=== PATIENT | female | born 1950 | race Caucasian/White ===

== ENCOUNTER 2017-12-14 17:39 | Inpatient (IN) ==
--- OUTSIDE RECORDS SUMMARY | 2017-12-14 20:55 | External Medical Summary | Clinical Summary ---
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 Screening-Mammogram 02/11/2000 Colon Cancer Screening 02/11/2000 Zoster Recombinant Vaccine 02/11/2000 (RZV,Shingrix) (1 of 2 - SVH 2 Dose Standard) Pneumo-Adult (1 of 2 - PCV13) 2015 09/20/2011 Annual Wellness Visit 12/12/2015 Influenza Vaccine (Season Ended) 2018 Diabetic Foot Exam 06/29/2018 06/29/2017, 03/05/2015, 01/16/2013 Results T3, Total (11/23/2017 4:23 PM) Component Value Ref Range T3, Total 103 60 - 181 ng/dL Specimen Performing Laboratory Blood [facility] [address] [place] [address] TSH (11/23/2017 4:23 PM) Component Value Ref Range TSH 0.800 0.340 - 4.820 uIU/mL Specimen Performing Laboratory Blood [facility] [address] [place] [address] T4, Free (11/23/2017 4:23 PM) Component Value Ref Range Free T4 0.89 0.77 - 1.61 ng/dL Specimen Performing Laboratory Blood [facility] [address] [place] [address] EKG 12 lead Ambulatory (11/23/2017 4:12 PM) Component Value Ref Range Height in Heart Rate 57 bpm Interval 1,053 ms Atrial Rate 57 ms SV P-R Interval 179 ms P Duration 113 ms P Horizontal [place] -15 deg P Front [place] 34 deg Q Onset 504 ms QRSD Interval 92 ms QT Interval 450 ms QTcB 439 ms QTcF 442 ms QRS Horizontal [place] -28 deg QRS AXIS 58 deg I40 Horizontal [place] -17 deg I40 Front [place] 16 deg T-40 Horizontal [place] -31 deg T-40 Front [place] 62 deg T Horizontal [place] 30 deg T Wave [place] 90 deg S-T HORIZONTAL AXIS 111 deg S-T FRONT AXIS 151 deg ECG Impression - OTHERWISE NORMAL ECG - ECG Impression SB ECG Impression Sinus bradycardia ECG Impression rate<60 Specimen Performing Laboratory PHILIPSECG Hemoglobin A1c (10/10/2017 3:13 PM) Component Value Ref Range Hemoglobin A1C 7.6 (H) <5.7 % Specimen Performing Laboratory Blood [facility] [address] [place] [address] Narrative [place] [employer] recommendations are as follows: Normal - A1c less than 5.7% Prediabetes - A1c 5.7 - 6.4% Diabetes - A1c 6.5% or greater Comprehensive metabolic panel (10/10/2017 3:13 PM) Component Value Ref Range Albumin 3.7 3.4 - 4.8 g/dL Alkaline Phosphatase 81 29 - 122 U/L ALT 41 10 - 46 U/L AST 32 16 - 37 U/L Total Bilirubin 0.5 0.0 - 1.2 mg/dL BUN, Bld 25 (H) 6 - 20 mg/dL Calcium 9.4 8.7 - 10.5 mg/dL Chloride 105 99 - 111 mmol/L Creatinine 1.58 (H) 0.40 - 1.10 mg/dL Glucose 240 (H) 74 - 106 mg/dL Potassium 4.1 3.6 - 4.9 mmol/L Total Protein 6.2 (L) 6.4 - 8.3 g/dL Sodium 141 136 - 145 mmol/L CO2 29 20 - 36 mmol/L Anion Gap 7 eGFR 33 (L) >59 mL/min Specimen Performing Laboratory Blood [facility] [address] [place] [address] from Last 3 Months
--- OUTSIDE RECORDS SUMMARY | 2017-12-14 20:55 | External Medical Summary | Encounter Summary ---
:1950 Author Organization [facility] Address [address] [place] [address] Care Team Providers Name Role Phone Mikel Augustine AUTOMOBILE RADIATOR MECHANIC Unavailable Kayode Espinosa MD Primary Care Provider Encounter Details Date Type Department Care Team Description 12/04/2017 [facility] MULTIPLE TESTS [place] Social History Tobacco Use Types Packs/Day Years Used Date Former Smoker Smokeless Tobacco: Never Used Comments: Quit smoking: Year stopped 1969/Number of yrs: /Packs per day: /Pack years: Sex Assigned at Date Recorded Not on file as of this encounter Plan of Treatment Upcoming Encounters Date Type Specialty Care Team Description 01/16/2018 Follow-Up Endocrinology Mikel Augustine, AUTOMOBILE RADIATOR MECHANIC [address] [place] [phone] 01/18/2018 Office Visit Family Medicine Kayode Espinosa MD [address] [place] [address] [phone] as of this encounter Visit Diagnoses Not on filein this encounter
--- OUTSIDE RECORDS SUMMARY | 2017-12-14 20:55 | External Medical Summary | Encounter Summary ---
:[address] [facility] Address [address] [place] [address] Care Team Providers Name Role Phone Mikel Augustine THRESHING DEPARTMENT SUPERVISOR Unavailable Kayode Espinosa MD Primary Care Provider Encounter Details Date Type Department Care Team Description 11/27/2017 [place] [facility] Visit [place]rales Syncope and collapse (Primary Dx); Emergency Services MD [place] Vomiting without nausea, intractability of vomiting not specified, unspecified [facility] type[facility] [address] Urinary tract infection without hematuria, site unspecified; [address] Nausea and vomiting, intractability of vomiting not specified, unspecified vomiting type; [address] [place], [place] [phone] Social History Tobacco Use Types Packs/Day Years Used Date Former Smoker Smokeless Tobacco: Never Used Comments: Quit smoking: Year stopped 1969/Number of yrs: /Packs per day: /Pack years: Sex Assigned at Date Recorded Not on file as of this encounter Plan of Treatment Upcoming Encounters Date Type Specialty Care Team Description 01/16/2018 Follow-Up Endocrinology Mikel Augustine, THRESHING DEPARTMENT SUPERVISOR [address] [place] [phone] 01/18/2018 Office Visit Family Medicine Kayode Espinosa MD [address] [place] [address] [phone] as of this encounter Visit Diagnoses Diagnosis Syncope and collapse - Primary Vomiting without nausea, intractability of vomiting not specified, unspecified vomiting type Urinary tract infection without hematuria, site unspecified Nausea and vomiting, intractability of vomiting not specified, unspecified vomiting type Abnormal EKG Nonspecific abnormal electrocardiogram (ECG) (EKG)
--- OUTSIDE RECORDS SUMMARY | 2017-12-14 20:55 | External Medical Summary | Encounter Summary ---
:1950 Author Organization [facility] Address [address] [place] [address] Care Team Providers Name Role Phone Mikel Augustine HEAT READER Unavailable Kayode Espinosa MD Primary Care Provider Reason for Visit Reason Comments Question Encounter Details Date Type Department Care Team Description 12/07/2017 Telephone [facility] Family Kayode Espinosa MD [facility] [address] [place] [address] [place] [address] [place], [place] [phone] Social History Tobacco Use Types Packs/Day Years Used Date Former Smoker Smokeless Tobacco: Never Used Comments: Quit smoking: Year stopped 1969/Number of yrs: /Packs per day: /Pack years: Sex Assigned at Date Recorded Not on file as of this encounter Plan of Treatment Upcoming Encounters Date Type Specialty Care Team Description 01/16/2018 Follow-Up Endocrinology Mikel Augustine, HEAT READER [address] [place] [phone] 01/18/2018 Office Visit Family Medicine Kayode Espinosa MD [address] [place] [address] [place] [phone] as of this encounter Visit Diagnoses Not on filein this encounter
--- OUTSIDE RECORDS SUMMARY | 2017-12-14 20:55 | External Medical Summary | Encounter Summary ---
:1950 Author Organization [facility] Address [address] [address] Care Team Providers Name Role Phone Mikel Augustine APPAREL PATTERNMAKER Unavailable Kayode Espinosa MD Primary Care Provider Encounter Details Date Type Department Care Team Description 12/06/2017 Chart Note [place] [facility] [address] [facility] [address] [place], [place] [address] Social History Tobacco Use Types Packs/Day Years Used Date Former Smoker Smokeless Tobacco: Never Used Comments: Quit smoking: Year stopped 1969/Number of yrs: /Packs per day: /Pack years: Sex Assigned at Date Recorded Not on file as of this encounter Plan of Treatment Upcoming Encounters Date Type Specialty Care Team Description 01/16/2018 Follow-Up Endocrinology Mikel Augustine, APPAREL PATTERNMAKER [address] [place] [phone] 01/18/2018 Office Visit Family Medicine Kayode Espinosa MD [id number] [place], [place] [phone] as of this encounter Visit Diagnoses Not on filein this encounter
--- OUTSIDE RECORDS SUMMARY | 2017-12-14 20:55 | External Medical Summary | Encounter Summary ---
:1950 Author Organization [facility] Address [address] [place] [address] Care Team Providers Name Role Phone Mikel Augustine JEEPER OPERATOR Unavailable Kayode Espinosa MD Primary Care Provider Reason for Visit Reason Comments Question Encounter Details Date Type Department Care Team Description 12/06/2017 Telephone [facility] Family Kayode Espinosa MD [facility] [address] [place] [address] [place] [address] [place], [place] [phone] Social History Tobacco Use Types Packs/Day Years Used Date Former Smoker Smokeless Tobacco: Never Used Comments: Quit smoking: Year stopped 1969/Number of yrs: /Packs per day: /Pack years: Sex Assigned at Date Recorded Not on file as of this encounter Plan of Treatment Upcoming Encounters Date Type Specialty Care Team Description 01/16/2018 Follow-Up Endocrinology Mikel Augustien, JEEPER OPERATOR [address] [place] [phone] 01/18/2018 Office Visit Family Medicine Kayode Espinosa MD [address] [place] [phone] as of this encounter Visit Diagnoses Not on filein this encounter
--- OUTSIDE RECORDS SUMMARY | 2017-12-14 20:55 | External Medical Summary | Encounter Summary ---
:1950 Author Organization [facility] Address [address] [place] [address] Care Team Providers Name Role Phone Mikel Augustine SLIP SEAT COVERER Unavailable Kayode Espinosa MD Primary Care Provider Reason for Visit Reason Comments Calling With Results Encounter Details Date Type Department Care Team Description 11/29/2017 Telephone [facility] Kayode Espinosa MD Calling With Results [facility] [address] [place] [address] [place] [address] [place], [place] [phone] Social History Tobacco Use Types Packs/Day Years Used Date Former Smoker Smokeless Tobacco: Never Used Comments: Quit smoking: Year stopped 1969/Number of yrs: /Packs per day: /Pack years: Sex Assigned at Date Recorded Not on file as of this encounter Plan of Treatment Upcoming Encounters Date Type Specialty Care Team Description 01/16/2018 Follow-Up Endocrinology Mikel Augustine, SLIP SEAT COVERER [address] [place] [phone] 01/18/2018 Office Visit Family Medicine Kayode Espinosa MD [address] [place] [address] [phone] as of this encounter Visit Diagnoses Not on filein this encounter
--- OUTSIDE RECORDS SUMMARY | 2017-12-14 20:55 | External Medical Summary | Encounter Summary ---
:1950 Author Organization [facility] Address [address] [address] Care Team Providers Name Role Phone Mikel Augustine KEVON Unavailable Kayode Espinosa MD Primary Care Provider Encounter Details Date Type Department Care Team Description 11/23/2017 Office Visit [place] [facility] Kayode Espinosa, Medication management (Primary Dx); Medicine - Margarita GRAY Hypothyroidism, unspecified type; [address] Anxiety; [address] [place] [address] [place], [place] [phone] [address] [phone] Social History Tobacco Use Types Packs/Day Years Used Date Former Smoker Smokeless Tobacco: Never Used Comments: Quit smoking: Year stopped 1969/Number of yrs: /Packs per day: /Pack years: Sex Assigned at Date Recorded Not on file as of this encounter Last Filed Vital Signs Vital Sign Reading Time Taken Blood Pressure 110/70 11/23/2017 3:21 PM CDT Pulse 66 11/23/2017 3:21 PM CDT Temperature - - Respiratory Rate 16 11/23/2017 3:21 PM CDT Oxygen Saturation - - Inhaled Oxygen Concentration - - Weight 45.4 kg (100 lb) 11/23/2017 3:21 PM CDT Height 152.4 cm (5') 11/23/2017 3:21 PM CDT Body Mass Index 19.53 11/23/2017 3:21 PM CDT in this encounter Progress Notes Kayode Espinosa MD - 11/23/2017 3:30 PM CDTFormatting of this note may be different from the original. FLACA ARRIAGA [address] [address] 11/23/2017 Patient: Aleisha Oliver : 1950 Primary Care Provider: Kayode Espinosa MD Aleisha Oliver is a 67 y.o. female with a history of adrenal insufficiency, anxiety, circadian rhythm disorder, hypothyroidism, hyperparathyroidism, orthostatic hypotension, chronic kidney disease, stroke, type 1 diabetes, depression, personality disorder who presents to discuss medications. She lives in a long term and is here alone. She states she is "terrible" she is generally not feeling well. Things in the long term are "terrible" although she acknowledges of the people are "nice". Her mood is "terrible, horrible, I'm really sick". She denies suicidal or homicidal ideation and denies ideation or self-harm. She states generally "I'm getting worse" and she is worried about orthostatic hypotension making her generalized condition worse. When we discussed medications, she is on [place] Thyroid. We attempted to discontinue this and startlevothyroxine 100 g daily patient refused to make this switch. She is been on [place] Thyroid for 10 years per her report. TSH has been low when checked previously we discussed [place] Thyroid is nota generally approved medication for hypothyroidism. It is unclear if patient does has true hypothyroidism. She has been on lorazepam and states "I don't know" if this medication is helping but thinks it might be. She is okay to discontinue this medication and agreeable to starting quetiapine to help with both sleep and for some mood stabilization. She continues to discuss her prior partner's and suicide that occurred months ago. She continues to think that the sertraline he was prescribed prior to before his suicide was the cause of his suicide. Patient's blood sugars are greater than 200 and she states she is planning on changing her settings. I encouraged her not to change her settings prior to talking with endocrinology who manages her insulin pump and type 1 diabetes. Patient seen a therapist twice per week for psychotherapy is is also in a grief group presently through her nursing facility. Patient is upset because she believes that I placed an order for restriction of water. This was relaxed or discontinued per her report and she wants to know who placed this order and why. I do not have recollection of placing this order but she wanted us to contact the nursing facility for further investigation. She is getting enough water now. Of note, nursing did contact her nursing facility who stated that she has no orders for water restriction. Patient Active Problem List Diagnosis GERD (gastroesophageal reflux disease) Type I diabetes mellitus (HCC) Gastroparesis Healthcare maintenance Stage 3 chronic kidney disease Orthostatic hypotension Adrenal insufficiency (HCC) Hyperparathyroidism (HCC) Osteopenia History of stroke Hyperlipidemia Anemia Vitamin B 12 deficiency Stroke (HCC) Seborrheic dermatitis Not currently working due to disabled status Constipation Circadian rhythm disorder Encounter for monitoring statin therapy Resides in retirement facility UTI (urinary tract infection) Anxiety Poor appetite Suicidal ideation Hypothyroidism Encounter for neuropsychological testing Medications Outpatient Prescriptions Marked as Taking for the 11/23/17 encounter (Office Visit) with Kayode Espinosa MD Medication Sig Note GUANAKO CONTOUR NEXT test strip Use to check capillary blood glucose subcutaneously 8 times daily. This brand works with insulin pump clopidogrel (PLAVIX) 75 MG tablet Take 1 tablet by mouth daily. 03/21/2017: Received from: External Pharmacy fludrocortisone (FLORINEF) 0.1 MG tablet Take 0.1 mg by mouth daily. glucagon (GLUCAGON EMERGENCY) 1 MG injection Inject 1 mg into the muscle as needed (severe hypoglycemia). Insulin Infusion Pump (MINIMED INSULIN PUMP) JACKY use as directed (Patient taking differently: See Admin Instructions. Paradigm 530G Enlite) ketoconazole (NIZORAL) 2 % shampoo Apply 2 % topically 3 (three) times a week. LORazepam (ATIVAN) 0.5 MG tablet Take 1 tablet (0.5 mg total) by mouth 2 ( two) times daily. Do not exceed a daily dose of 1 mg methylphenidate (RITALIN) 20 MG tablet Take 20 mg by mouth 3 (three) times daily. 07/17/2017: Received from: External Pharmacy multivitamin (THERAPEUTIC) TABS tablet Take 1 tablet by mouth daily. Reported on 07/20/2016 nortriptyline (PAMELOR) 10 MG capsule Take 2 capsules (20 mg total) by mouth at bedtime. NOVOLOG 100 UNIT/ML injection INJECT PER INSULIN PUMP; WITH A TOTAL DAILY DOSE OF APPROXIMATELY 33 UNITS ondansetron (ZOFRAN) 4 MG tablet TAKE ONE TABLET BY MOUTH EVERY 8 HOURS NEEDED FOR NAUSEA ondansetron (ZOFRAN-ODT) 4 MG disintegrating tablet Take 4 mg by mouth as needed. 08/21/2017: Received from: External Pharmacy polyethylene glycol (MIRALAX) packet Take 17 g by mouth 3 (three) times daily as needed for Constipation. Probiotic Product (PROBIOTIC DAILY PO) Take 1 tablet by mouth daily. pyridostigmine (MESTINON) 60 MG tablet Take 0.5 tablets (30 mg total) by mouth 3 (three) times daily. simvastatin (ZOCOR) 20 MG tablet take 1 tablet (20MG) by oral route every day in the evening thyroid (ARMOUR) 30 MG tablet Take 60 mg by mouth daily. Take one tab daily Physical Exam Visit Vitals BP 110/70 (BP Location: Right arm, Patient Position: Sitting, Cuff Size: Regular Adult) Pulse 66 Resp 16 Ht 5' (1.524 m) Wt 100 lb (45.4 kg) ? No BMI 19.53 kg/m Constitutional: alert, oriented, In a wheelchair, slumped over, appears frail, white appearing female, seems appreciative and somewhat disgruntled CV: Heart regular rate and rhythm, no murmur Resp: Lungs clear to auscultation bilaterally, no wheezes or crackles bilaterally Assessment/Plan Aleisha Oliver is a 67 y.o. female with a history of adrenal insufficiency, anxiety, circadian rhythm disorder, hypothyroidism, hyperparathyroidism, orthostatic hypotension, chronic kidney disease, stroke, type 1 diabetes, depression, personality disorder who presents to discuss medications. 1. Medication management: We will discontinue lorazepam as this is not indicated for long-term treatment for her mood especially without diagnosis of anxiety per neuropsychological testing by Dr. Mayo 11/07/17. We will prescribe quetiapine 25 mg at night but did discuss possibility of QT prolongation. CT level of EKG today was 450. Consider repeating EKG in the future especially if increases dosage of quetiapine is required - EKG 12 lead Ambulatory 2. Hypothyroidism, unspecified type Assessment & Plan: -presumed as she is on [place] Thyroid. Discontinued 60 mg of this and started levothyroxine 100 mcg daily (equivalent dosing) and check TSH and free T4 in 8 weeks and again in 6 months [facility]. () -patient refuses levothyroxine 100 mcg daily. (11/12/17) It is unclear patient has actual hypothyroidism. She's been on [place] Thyroid for 10 years per her report. We will discontinue this, check TSH, free T4, total T3 today and follow-up in 8 weeks [facility] labs to determine patient actually requires thyroid hormone. Of note, she today refuses levothyroxine if needed in the future. (11/23/17) Orders: - TSH; Future - T4, Free; Future - T3, Total; Future 3. Anxiety Assessment & Plan: Patient's recently committed suicide, [...] related given her relatively recent suicide. (11/23/17) 4. Circadian rhythm disorder Assessment & Plan: Per patient report and prior records, has seen psychotherapist in the past, consider restarting psychotherapy and slowly changing sleep-wake cycle back to a more typical regimen of possible (07/17/17) Discontinued lorazepam and surgery quetiapine 4 circadian rhythm disorder as well as mood stabilization. Increase the dose as tolerated and needed in the future (11/23/17) Other orders - QUEtiapine (SEROQUEL) 25 MG tablet; Take 1 tablet (25 mg total) by mouth at bedtime. 5. Personality disorder with borderline histrionic traits: I have discussed neuropsychological testing and this condition with Dr. Mayo of neuropsychology previously. Dr. Mayo has requested that this diagnosis and information not be shared with the patient as it would cause more harm than good. She is undergoing psychotherapy twice per week as well as additional grief therapy group which is likely helpful and I encouraged her to continue these therapies. She would best benefit from dialectical behavioral therapy. Note that patient's concern regarding water restriction order which was notactually placed in addition to her general outlook of her health condition and surroundings is colored to the lense of the above personality disorder. 6. Type 1 diabetes: Patient is on insulin pump. She states her blood sugars are elevated greater than 200 and she tells me she would like to change her settings. I encouraged her not to change her settings of her pump before talking with endocrinology whom she sees for this condition. We did discuss the risk of hyper or hypoglycemia. Follow-up and Disposition Return in about 2 months (around 01/23/2018) for follow up 30 minute. Kayode Espinosa MD Electronically Signed 11/23/2017 4:20 PM Division of [email or web address] Page 5 of 5in this encounter Plan of Treatment Upcoming Encounters Date Type Specialty Care Team Description 01/16/2018 Follow-Up Endocrinology Mikel Augustine, BRAZING MACHINE TENDER [address] [phone] 01/18/2018 Office Visit Family Medicine Kayode Espinosa MD [address] [facility] [address] [place], [place] [address] as of this encounter Results T3, Total (11/23/2017 4:23 PM) Component Value Ref Range T3, Total 103 60 - 181 ng/dL Specimen Performing Laboratory Blood [facility] [address] [place] [address] T4, Free (11/23/2017 4:23 PM) Component Value Ref Range Free T4 0.89 0.77 - 1.61 ng/dL Specimen Performing Laboratory Blood [facility] [address] [facility], [address] [place] [address] TSH (11/23/2017 4:23 PM) Component Value Ref Range TSH 0.800 0.340 - 4.820 uIU/mL Specimen Performing Laboratory Blood [facility] [address] [facility], [address] [place] [address] EKG 12 lead Ambulatory (11/23/2017 4:12 PM) Component Value Ref Range Height in Heart Rate 57 bpm Interval 1,053 ms Atrial Rate 57 ms SV P-R Interval 179 ms P Duration 113 ms P Horizontal [place] -15 deg P Front [place] 34 deg Q Onset 504 ms QRSD Interval 92 ms QT Interval 450 ms QTcB 439 ms QTcF 442 ms QRS Horizontal [place] -28 deg QRS AXIS 58 deg I40 Horizontal [place] -17 deg I40 Front [place] 16 deg T-40 Horizontal [place] -31 deg T-40 Front [place] 62 deg T Horizontal [place] 30 deg T Wave [place] 90 deg S-T HORIZONTAL AXIS 111 deg S-T FRONT AXIS 151 deg ECG Impression - OTHERWISE NORMAL ECG - ECG Impression SB ECG Impression Sinus bradycardia ECG Impression rate<60 Specimen Performing Laboratory PHILIPSECG in this encounter Visit Diagnoses Diagnosis Medication management - Primary Encounter for long-term (current) use of other medications Hypothyroidism, unspecified type Anxiety Anxiety state, unspecified Circadian rhythm disorder Circadian rhythm sleep disorder, unspecified
--- OUTSIDE RECORDS SUMMARY | 2017-12-14 20:55 | External Medical Summary | Encounter Summary ---
:1950 Author Organization [facility] Address [address] [address] Care Team Providers Name Role Phone Mikel Augustine BEDSPRING ASSEMBLER Unavailable Kayode Espinosa MD Primary Care Provider Encounter Details Date Type Department Care Team Description 11/23/2017 Lab Visit [facility] - Hypothyroidism, unspecified [place] type [address] [place] [address] Social History Tobacco Use Types Packs/Day Years Used Date Former Smoker Smokeless Tobacco: Never Used Comments: Quit smoking: Year stopped 1969/Number of yrs: /Packs per day: /Pack years: Sex Assigned at Date Recorded Not on file as of this encounter Plan of Treatment Upcoming Encounters Date Type Specialty Care Team Description 01/16/2018 Follow-Up Endocrinology Mikel Augustine, BEDSPRING ASSEMBLER [address] [place] [address] 01/18/2018 Office Visit Family Medicine Kayode Espinosa MD [address] [facility] [address] [place] [address] as of this encounter Results T3, Total (11/23/2017 4:23 PM) Component Value Ref Range T3, Total 103 60 - 181 ng/dL Specimen Performing Laboratory Blood [facility] [address] [place] [address] T4, Free (11/23/2017 4:23 PM) Component Value Ref Range Free T4 0.89 0.77 - 1.61 ng/dL Specimen Performing Laboratory Blood [facility] [address] [facility] [address] [place] [address] TSH (11/23/2017 4:23 PM) Component Value Ref Range TSH 0.800 0.340 - 4.820 uIU/mL Specimen Performing Laboratory Blood [facility] [address] [facility], [address] [place] [address] in this encounter Visit Diagnoses Diagnosis Hypothyroidism, unspecified type
--- OUTSIDE RECORDS SUMMARY | 2017-12-14 20:56 | External Medical Summary | Encounter Summary ---
:1950 Author Organization [facility] Address [address] [place] [address] Care Team Providers Name Role Phone Mikel Augustine RECORDS OFFICER Unavailable Kayode Espinosa MD Primary Care Provider Reason for Visit Reason Comments Other Encounter Details Date Type Department Care Team Description 11/15/2017 Telephone [facility] Kayode Espinosa MD Other Medicine - [place] [address] [employer] [address] [place] [address] [place], [place] [address] Social History Tobacco Use Types Packs/Day Years Used Date Former Smoker Smokeless Tobacco: Never Used Comments: Quit smoking: Year stopped 1969/Number of yrs: /Packs per day: /Pack years: Sex Assigned at Date Recorded Not on file as of this encounter Plan of Treatment Upcoming Encounters Date Type Specialty Care Team Description 01/16/2018 Follow-Up Endocrinology Mikel Augustine, RECORDS OFFICER [address] [place] [address] 01/18/2018 Office Visit Family Medicine Kayode Espinosa MD [address] [place], [place] [address] as of this encounter Visit Diagnoses Not on filein this encounter
--- OUTSIDE RECORDS SUMMARY | 2017-12-14 20:56 | External Medical Summary | Encounter Summary ---
:1950 Author Organization [facility] Address [address] [address] Care Team Providers Name Role Phone Mikel Augustine KEVON Unavailable Kayode Espinosa MD Primary Care Provider Encounter Details Date Type Department Care Team Description 10/24/2017 Chart Note [place] Kayode Espinosa MD [facility] [address] [facility] [address] [facility] [address] [place] [address] [place] [address] [phone] Social History Tobacco Use Types Packs/Day Years Used Date Former Smoker Smokeless Tobacco: Never Used Comments: Quit smoking: Year stopped 1969/Number of yrs: /Packs per day: /Pack years: Sex Assigned at Date Recorded Not on file as of this encounter Progress Notes Kayode Espinosa MD - 10/24/2017 2:00 PM CDTI received written communication from [facility] regarding UA results including nitrate negative leukocyte esterase trace with 1020 white blood cells and no red blood cells as wellas rare bacteria drawn 10/22/17. She was started on nitrofurantoin by Dr. Tan bone process operator physician. The patient later said she had nausea and vomiting although this is not been substantiated bynursing staff [facility]. Per nursing, nursing staff at [facility] asked to see a vomit bag for evidence of vomiting the patient refused to show nursing staff the bag. I asked my nurse to call [facility] back and, if the patient continues to have UTIsymptoms to repeat a UA with a urine culture as I do not have urine culture with sensitivities available, if it was performed, from . Also, nurse practitioner Savi let me know that the patient was found to be hoarding some medications on her own. As the patient has expressed suicidality in the past, both nurse practitioner and I agree that the detention needs to have firm guarding boundaries regarding medication management with the patient. We agreed that the detention should offerprescribed medications and watch her take them and, the patient refuses medications, to simply not give her the medication she refuses given risk of collecting medications to be used in an overdose at a following time. We will continue to work with staff [facility] to care for the patient. Of note, the patient's daughters are trying to move her closer to one of the daughters in [place] relatively soon. Kayode Espinosa M.D.in this encounter Plan of Treatment Upcoming Encounters Date Type Specialty Care Team Description 01/16/2018 Follow-Up Endocrinology Mikel Augustine, PAPER PRODUCTS MACHINE OPERATOR [address] [phone] 01/18/2018 Office Visit Family Medicine Kayode Espinosa MD [address] [facility] [address] [place] [address] [phone] as of this encounter Visit Diagnoses Not on filein this encounter
--- OUTSIDE RECORDS SUMMARY | 2017-12-14 20:56 | External Medical Summary | Encounter Summary ---
:1950 Author Organization [facility] Address [address] [place] [address] Care Team Providers Name Role Phone Mikel Augustine FASHION STYLIST Unavailable Kayode Espinosa MD Primary Care Provider Reason for Visit Reason Comments Clarification On Medication Encounter Details Date Type Department Care Team Description 11/03/2017 Telephone [facility] ObdulioMikel Issa, Clarification On Endocrinology FASHION STYLIST Medication [address] [facility] [place] [address] [place], [place] [phone] Social History Tobacco Use Types Packs/Day Years Used Date Former Smoker Smokeless Tobacco: Never Used Comments: Quit smoking: Year stopped 1969/Number of yrs: /Packs per day: /Pack years: Sex Assigned at Date Recorded Not on file as of this encounter Plan of Treatment Upcoming Encounters Date Type Specialty Care Team Description 01/16/2018 Follow-Up Endocrinology Mikel Augustine, FASHION STYLIST [address] [place] [address] 01/18/2018 Office Visit Family Medicine Kayode Espinosa MD [address] [place] [address] [phone] as of this encounter Visit Diagnoses Not on filein this encounter
--- OUTSIDE RECORDS SUMMARY | 2017-12-14 20:56 | External Medical Summary | Encounter Summary ---
:1950 Author Organization [facility] Address [address] [place] [address] Care Team Providers Name Role Phone Mikel Augustine CLIENT APPLICATION SUPPORT ENGINEER Unavailable Kayode Espinosa MD Primary Care Provider Encounter Details Date Type Department Care Team Description 11/02/2017 [facility] MULTIPLE TESTS [place], [place] Social History Tobacco Use Types Packs/Day Years Used Date Former Smoker Smokeless Tobacco: Never Used Comments: Quit smoking: Year stopped 1969/Number of yrs: /Packs per day: /Pack years: Sex Assigned at Date Recorded Not on file as of this encounter Plan of Treatment Upcoming Encounters Date Type Specialty Care Team Description 01/16/2018 Follow-Up Endocrinology Mikel Augustine, CLIENT APPLICATION SUPPORT ENGINEER [address] [place] [phone] 01/18/2018 Office Visit Family Medicine Kayode Espinosa MD [address] [place] [address] [phone] as of this encounter Visit Diagnoses Not on filein this encounter
--- OUTSIDE RECORDS SUMMARY | 2017-12-14 20:56 | External Medical Summary | Encounter Summary ---
:1950 Author Organization [facility] Address [address] [place] [address] Care Team Providers Name Role Phone Mikel Augustine DIRECTOR OF SECURITIES AND REAL ESTATE Unavailable Kayode Espinosa MD Primary Care Provider Encounter Details Date Type Department Care Team Description 10/19/2017 [facility] MULTIPLE TESTS Link, [place] Social History Tobacco Use Types Packs/Day Years Used Date Former Smoker Smokeless Tobacco: Never Used Comments: Quit smoking: Year stopped 1969/Number of yrs: /Packs per day: /Pack years: Sex Assigned at Date Recorded Not on file as of this encounter Plan of Treatment Upcoming Encounters Date Type Specialty Care Team Description 01/16/2018 Follow-Up Endocrinology Mikel Augustine, DIRECTOR OF SECURITIES AND REAL ESTATE [address] [place] [phone] 01/18/2018 Office Visit Family Medicine Kayode Espinosa MD [address] [place] [address] [phone] as of this encounter Visit Diagnoses Not on filein this encounter
--- OUTSIDE RECORDS SUMMARY | 2017-12-14 20:56 | External Medical Summary | Encounter Summary ---
:1950 Author Organization [facility] Address [address] [address] Care Team Providers Name Role Phone Mikel Augustine CONTENT DEVELOPMENT MANAGER Unavailable Kayode Espinosa MD Primary Care Provider Encounter Details Date Type Department Care Team Description 10/20/2017 Orders Only [facility] Family Iman Gibbs, AMAYA Anxiety Medicine - [place] [address] [address] [facility] [address] [place], [place] [address] Social History Tobacco Use Types Packs/Day Years Used Date Former Smoker Smokeless Tobacco: Never Used Comments: Quit smoking: Year stopped 1969/Number of yrs: /Packs per day: /Pack years: Sex Assigned at Date Recorded Not on file as of this encounter Plan of Treatment Upcoming Encounters Date Type Specialty Care Team Description 01/16/2018 Follow-Up Endocrinology Mikel Augustine, CONTENT DEVELOPMENT MANAGER [address] [place] [phone] 01/18/2018 Office Visit Family Medicine Kayode Espinosa MD [address] [place], [place] [address] as of this encounter Visit Diagnoses Diagnosis Anxiety Anxiety state, unspecified
--- OUTSIDE RECORDS SUMMARY | 2017-12-14 20:56 | External Medical Summary | Encounter Summary ---
:1950 Author Organization [facility] Address [address] [place] [address] Care Team Providers Name Role Phone Mikel Augustine TORPEDO SHOOTER Unavailable Kayode Espinosa MD Primary Care Provider Reason for Visit Reason Comments Medication Refill Encounter Details Date Type Department Care Team Description 10/27/2017 Refill [place] [facility] Kayode Espinosa MD Medication Refill Medicine - [place] [address] [place] [address] [place] [address] [phone] Social History Tobacco Use Types Packs/Day Years Used Date Former Smoker Smokeless Tobacco: Never Used Comments: Quit smoking: Year stopped 1969/Number of yrs: /Packs per day: /Pack years: Sex Assigned at Date Recorded Not on file as of this encounter Plan of Treatment Upcoming Encounters Date Type Specialty Care Team Description 01/16/2018 Follow-Up Endocrinology Mikel Augustine, TORPEDO SHOOTER [address] [place] [address] 01/18/2018 Office Visit Family Medicine Kayode Espinosa MD [address] [place] [address] [phone] as of this encounter Visit Diagnoses Not on filein this encounter
--- OUTSIDE RECORDS SUMMARY | 2017-12-14 20:56 | External Medical Summary | Encounter Summary ---
:1950 Author Organization [facility] Address [address] [place] [address] Care Team Providers Name Role Phone Mikel Augustine RECEIVER/LABORER Unavailable Kayode Espinosa MD Primary Care Provider Reason for Visit Reason Comments Schedule Appointment/Procedure Medication Management Encounter Details Date Type Department Care Team Description 11/08/2017 Telephone [facility] Kayode Espinosa MD [facility] [address] Appointment/Procedure; [address] [facility] [address] [place] [address] [place], [place] [address] Social History Tobacco Use Types Packs/Day Years Used Date Former Smoker Smokeless Tobacco: Never Used Comments: Quit smoking: Year stopped 1969/Number of yrs: /Packs per day: /Pack years: Sex Assigned at Date Recorded Not on file as of this encounter Plan of Treatment Upcoming Encounters Date Type Specialty Care Team Description 01/16/2018 Follow-Up Endocrinology Mikel Augustine, RECEIVER/LABORER [address] [place] [phone] 01/18/2018 Office Visit Family Medicine Kayode Espinosa MD [address] [place], [place] [address] as of this encounter Visit Diagnoses Not on filein this encounter
--- OUTSIDE RECORDS SUMMARY | 2017-12-14 20:56 | External Medical Summary | Encounter Summary ---
:1950 Author Organization [facility] Address [address] [place] [address] Care Team Providers Name Role Phone Mikel Augustine CULINARY MANAGER Unavailable Kayode Espinosa MD Primary Care Provider Reason for Visit Reason Comments Question Encounter Details Date Type Department Care Team Description 10/24/2017 Telephone [facility] Family Kayode Espinosa MD [facility] [address] [place] [address] [place], [place] [address] Social History Tobacco Use Types Packs/Day Years Used Date Former Smoker Smokeless Tobacco: Never Used Comments: Quit smoking: Year stopped 1969/Number of yrs: /Packs per day: /Pack years: Sex Assigned at Date Recorded Not on file as of this encounter Plan of Treatment Upcoming Encounters Date Type Specialty Care Team Description 01/16/2018 Follow-Up Endocrinology Mikel Augustine, CULINARY MANAGER [address] [place] [phone] 01/18/2018 Office Visit Family Medicine Kayode Espinosa MD [address] [place] [id number] as of this encounter Visit Diagnoses Not on filein this encounter
--- OUTSIDE RECORDS SUMMARY | 2017-12-14 20:56 | External Medical Summary | Encounter Summary ---
:1950 Author Organization [facility] Address [address] [address] Care Team Providers Name Role Phone Mikel Augustine MEDICAL LIAISON Unavailable Kayode Espinosa MD Primary Care Provider Reason for Visit Reason Comments Fall Encounter Details Date Type Department Care Team Description 10/24/2017 Telephone [place] [facility] - Dolly Nguyen, PRINTING BINDERY ASSISTANT [facility] [address] [place] [address] Social History Tobacco Use Types Packs/Day Years Used Date Former Smoker Smokeless Tobacco: Never Used Comments: Quit smoking: Year stopped 1969/Number of yrs: /Packs per day: /Pack years: Sex Assigned at Date Recorded Not on file as of this encounter Plan of Treatment Upcoming Encounters Date Type Specialty Care Team Description 01/16/2018 Follow-Up Endocrinology Mikel Augustine, MEDICAL LIAISON [address] [place] [phone] 01/18/2018 Office Visit Family Medicine Kayode Espinosa MD [address] [address] as of this encounter Visit Diagnoses Not on filein this encounter
--- OUTSIDE RECORDS SUMMARY | 2017-12-14 20:56 | External Medical Summary | Encounter Summary ---
:1950 Author Organization [facility] Address [address] [address] Care Team Providers Name Role Phone Mikel Augustine APPLICATIONS SALES REPRESENTATIVE Unavailable Kayode Espinosa MD Primary Care Provider Encounter Details Date Type Department Care Team Description 11/10/2017 [facility] MULTIPLE TESTS Link, [place] Social History Tobacco Use Types Packs/Day Years Used Date Former Smoker Smokeless Tobacco: Never Used Comments: Quit smoking: Year stopped 1969/Number of yrs: /Packs per day: /Pack years: Sex Assigned at Date Recorded Not on file as of this encounter Plan of Treatment Upcoming Encounters Date Type Specialty Care Team Description 01/16/2018 Follow-Up Endocrinology Mikel Augustine, APPLICATIONS SALES REPRESENTATIVE [address] [phone] 01/18/2018 Office Visit Family Medicine Kayode Espinosa MD [address] [place] [address] [phone] [phone] Results Name Priority Associated Diagnoses Date/Time EXTERNAL LAB TEST 10/22/2017 12:00 AM FRUIT FARMER as of this encounter Visit Diagnoses Not on filein this encounter
--- OUTSIDE RECORDS SUMMARY | 2017-12-14 20:56 | External Medical Summary | Encounter Summary ---
:1950 Author Organization [facility] Address [address] [place] [address] Care Team Providers Name Role Phone Mikel Augustine SURGERY TECHNICIAN Unavailable Kayode Espinosa MD Primary Care Provider Encounter Details Date Type Department Care Team Description 11/22/2017 [facility] MULTIPLE TESTS Link, [place] Social History Tobacco Use Types Packs/Day Years Used Date Former Smoker Smokeless Tobacco: Never Used Comments: Quit smoking: Year stopped 1969/Number of yrs: /Packs per day: /Pack years: Sex Assigned at Date Recorded Not on file as of this encounter Plan of Treatment Upcoming Encounters Date Type Specialty Care Team Description 01/16/2018 Follow-Up Endocrinology Mikel Augustine, SURGERY TECHNICIAN [address] [place] [phone] 01/18/2018 Office Visit Family Medicine Kayode Espinosa MD [address] [place] [address] [phone] as of this encounter Visit Diagnoses Not on filein this encounter
--- OUTSIDE RECORDS SUMMARY | 2017-12-14 20:57 | External Medical Summary | Encounter Summary ---
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); Lab Chronic kidney disease, stage III (moderate); [address] [place]emia [place] [address] Social History Tobacco Use Types Packs/Day Years Used Date Former Smoker Smokeless Tobacco: Never Used Comments: Quit smoking: Year stopped 1969/Number of yrs: /Packs per day: /Pack years: Sex Assigned at Date Recorded Not on file as of this encounter Plan of Treatment Upcoming Encounters Date Type Specialty Care Team Description 01/16/2018 Follow-Up Endocrinology Mikel Augustine, COKE LOADER [address] [place] [phone] 01/18/2018 Office Visit Family Medicine Kayode Espinosa MD [address] [address] as of this encounter Results Comprehensive metabolic panel (10/10/2017 3:13 PM) Component [...] Specimen Performing Laboratory [facility] [address] [place] [id number] Hemoglobin A1c (10/10/2017 3:13 PM) Component Value Ref Range Hemoglobin A1C 7.6 (H) <5.7 % Specimen Performing Laboratory Blood [facility] 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
--- OUTSIDE RECORDS SUMMARY | 2017-12-14 20:57 | External Medical Summary | Encounter Summary ---
:1950 Author Organization [facility] Address [address] [place] [address] Care Team Providers Name Role Phone Mikel Augustine SPEEDER MACHINE OPERATOR Unavailable Kayode Espinosa MD Primary Care Provider Reason for Visit Reason Comments Type 1 DM Encounter Details Date Type Department Care Team Description 10/10/2017 Follow-Up [place] Mikel López, Diabetes mellitus type 1 Endocrinology SPEEDER MACHINE OPERATOR with complications (HCC) [address] (Primary Dx) [place] [address] [place] [phone] Social History Tobacco Use Types Packs/Day Years Used Date Former Smoker Smokeless Tobacco: Never Used Comments: Quit smoking: Year stopped 1969/Number of yrs: /Packs per day: /Pack years: Sex Assigned at Date Recorded Not on file as of this encounter Last Filed Vital Signs Vital Sign Reading Time Taken Blood Pressure 98/52 10/10/2017 3:25 PM FABRICATION SPECIALIST Pulse 60 10/10/2017 3:25 PM FABRICATION SPECIALIST Temperature - - Respiratory Rate - - Oxygen Saturation - - Inhaled Oxygen Concentration - - Weight 47.6 kg (105 lb) 10/10/2017 3:25 PM FABRICATION SPECIALIST Height 152.4 cm (5') 10/10/2017 3:25 PM FABRICATION SPECIALIST Body Mass Index 20.51 10/10/2017 3:25 PM FABRICATION SPECIALIST in this encounter Instructions Patient Instructions - Mikel Augustine, SPEEDER MACHINE OPERATOR - 10/10/2017 2:45 PM CST1. Continue current basal/bolus insulin regimen 2. Dilated eye examination yearly per ADA recommendations. 3. Influenza immunization (flu shot) each year in the fall per CDC guidelines. 4. Ms. Oliver will FAX or drop self-monitoring glucose data to us if any consistent low or high glucose trends are noted in the coming weeks. 5. She was given an updated medication list today as we finished our visit. 6. Follow-up appointment with us in 3 months with A1c and cp drawn beforehand.in this encounter Progress Notes Mikel Augustine APRN - 10/10/2017 2:45 PM CSTFormatting of this note may be different from the original. [facility] [address] [facility] [address] 10/10/2017 Diabetes Follow-up Visit Patient: Aleisha Oliver : 1950 Primary Care Provider: Kayode Espinosa MD Referring Provider: Kayode Espinosa MD Date of Visit: 10/10/2017 Ms. Oliver is a 67 y.o. female seen in diabetes clinic today for follow-up of her type 1 diabetes mellitus. Since her last appointment here 3 months ago, she has been healthy. She lost her to suicide recently and is now is a correction. For her diabetes, Ms. Oliver has been performing self-monitoring of blood glucose (SMBG) 6-8 times per day, 7 days per week. She is not wearing her sensor. Her pre-meal and bedtime readings have generally been varying a lot in the 80-220 mg/dL range. She has only experienced occasional hypoglycemic episodes since her last diabetes clinic visit.Ms. Oliver has been following a diabetic diet and has remained at 93-105 pounds since her last visit. She has not been exercising regularly. Wt Readings from Last 3 Encounters: 10/10/17 105 lb (47.6 kg) 08/21/17 (!) 97 lb 9.6 oz (44.3 kg) 07/17/17 100 lb 9.6 oz (45.6 kg) Diabetes History: Diabetes Diagnosed in 1992. Last Dilated Eye Examination was in Oct 17. Result - Stable retinopathy Body Shop Mechanic: Dr. Bullock Motors [employer] Controls Tester: Dr. Jimenez Insulin Pump Brand and Model: Medtronic Insulin Pump first begun in 2009. CGMS (Continuous Glucose Monitoring System) Brand and Model: Medtronic CGMS first begun in 2011. Shared Medical Appointments: Pump-A (2012) Specialty Medical Providers: Neurologist: Dr. Hernadez ([facility]) Neurologist: Dr. Tegan Marion Service Transformer Repair Supervisor: Dr. Vj Galicia Psychiatrist: Dr. Connor Argueta Immunization History Administered Date(s) Administered Pneumococcal Polysaccharide (23-valent) 09/20/2011 Current Outpatient Prescriptions Medication Sig Dispense Refill GUANAKO CONTOUR NEXT test strip Use to check capillary blood glucose subcutaneously 8 times daily. This brand works with insulin pump 250 strip 11 clindamycin (CLINDAGEL) 1 % gel Apply topically daily. clobetasol (TEMOVATE) 0.05 % external solution clopidogrel (PLAVIX) 75 MG tablet Take 1 tablet by mouth daily. fludrocortisone (FLORINEF) 0.1 MG tablet Take 0.1 mg by mouth daily. fluocinolone (SYNALAR) 0.01 % external solution Apply 1 drop topically daily. glucagon (GLUCAGON EMERGENCY) 1 MG injection Inject 1 mg into the muscle as needed (severe hypoglycemia). Insulin Infusion Pump (MINIMED INSULIN PUMP) JACKY use as directed (Patient taking differently: See Admin Instructions. Paradigm 530G Enlite) 0 ketoconazole (NIZORAL) 2 % shampoo Apply 2 % topically 3 (three) times a week. LORazepam (ATIVAN) 0.5 MG tablet Take 1 tablet (0.5 mg total) by mouth every 4 (four) hours as needed for Anxiety. Do not exceed a daily dose of 3 mg 30 tablet 0 methylphenidate (RITALIN) 20 MG tablet Take 20 mg by mouth 3 (three) times daily. midodrine (PROAMATINE) 5 MG tablet Take 5 mg by mouth 3 (three) times daily. multivitamin (THERAPEUTIC) TABS tablet Take 1 tablet by mouth daily. Reported on 07/20/2016 nortriptyline (PAMELOR) 10 MG capsule Take 2 capsules (20 mg total) by mouth at bedtime. NOVOLOG 100 UNIT/ML injection INJECT PER INSULIN PUMP; WITH A TOTAL DAILY DOSE OF APPROXIMATELY 33 UNITS 10 mL 4 omeprazole (PRILOSEC) 10 MG capsule Take 10 mg by mouth every other day. ondansetron (ZOFRAN) 4 MG tablet TAKE ONE TABLET BY MOUTH EVERY 8 HOURS NEEDED FOR NAUSEA 20 tablet 0 ondansetron (ZOFRAN-ODT) 4 MG disintegrating tablet Take 4 mg by mouth as needed. polyethylene glycol (MIRALAX) powder take (17G) by oral route every day mixed with 8 oz. water, juice, soda, coffee or tea 0 Probiotic Product (PROBIOTIC DAILY PO) Take 1 tablet by mouth daily. pyridostigmine (MESTINON) 60 MG tablet Take 0.5 tablets (30 mg total) by mouth 3 (three) times daily. 135 tablet 0 Salicylic Acid (SCALPICIN EX) Apply 2 Application topically 2 (two) times daily. SELENIUM PO Take 30 mg by mouth daily. Reported on 07/20/2016 simvastatin (ZOCOR) 20 MG tablet take 1 tablet (20MG) by oral route every day in the evening 0 thyroid (ARMOUR) 30 MG tablet Take 60 mg by mouth daily. Take one tab daily UNABLE TO FIND Take 1 tablet by mouth at bedtime. Med Name: C-Calm for sleep UNABLE TO FIND Take 1 tablet by mouth at bedtime. Med Name:Kavonase for sleep No current facility-administered medications for this visit. Allergies Allergen Reactions Gralise [Gabapentin] Other (See Comments) Lowers blood pressure Ciprofloxacin Other (See Comments) Patient unsure Duloxetine Hcl Other (See Comments) Patient ensure of reaction Hydrocodone Other (See Comments) Patient unsure Levofloxacin Other (See Comments) Patient unsure Metoclopramide Hcl Other (See Comments) Shaking Other Other (See Comments) "tooth cement" As reported by patient Promethazine Hcl Other (See Comments) Orthostatic hypotension Venlafaxine Hcl Other (See Comments) Patient unsure of reaction ROS: Ms. Oliver denies psychosis, vision changes, difficulty swallowing, temperature intolerance, shortness of breath, chest pain, palpitations, nausea/ vomiting, bowel changes, muscle aches, skin breakdown/bruising, fever/chills. Past Medical History: Patient Active Problem List Diagnosis GERD (gastroesophageal reflux disease) Type I diabetes mellitus (HCC) Gastroparesis Healthcare maintenance Stage 3 chronic kidney disease Orthostatic hypotension Adrenal insufficiency (HCC) Hyperparathyroidism (HCC) Osteopenia History of stroke Hyperlipidemia Anemia Vitamin B 12 deficiency Stroke (HCC) Seborrheic dermatitis Not currently working due to disabled status Constipation Circadian rhythm disorder Encounter for monitoring statin therapy Resides in long-term facility UTI (urinary tract infection) Anxiety Poor appetite Suicidal ideation Social History: Mrs. Oliver is with 2 children and 5 grandchildren. She is a nonsmoker and nondrinker. Ms. Oliver is on medical disability. She lives in [place], [place]. Physical Exam: Vitals: 10/10/17 1525 BP: 98/52 Pulse: 60 Weight: 105 lb (47.6 kg) Height: 5' (1.524 m) Body mass index is 20.51 kg/m. General: The patient is very thin, conscious, and not in acute distress. She is in a wheelchair. Psychiatric: Coherent without apparent delusions or psychosis; oriented to person and place. HEENT: EOMI; no ptosis noted; oropharynx clear without thrush or ulcerations , dentition fairly good. Neck: Thyroid gland normal (20g) in size without nodularity; no cervical or submandibular adenopathy noted. Lungs: Clear to auscultation in all lung tracy; no rales, wheezing or stridor audible. Heart: Heart rate is normal and rhythm is regular; no murmurs or gallops were heard today. Vascular: Radial pulse is full with a normal heart rhythm affirmed. Neurologic: Cranial nerves and cerebellar function appear to be intact; no motor deficits noted; speech is normal. Diabetic foot exam: Left: Inspection: normal skin and nails without erythema or breakdown Monofilament test: absent Pulses: Dorsalis Pedis: 1+ and Posterior Tibialis: 1+ Vibratory sensation: diminished Sharp/dull discrimination: moderately reduced Right: Inspection: normal skin and nails without erythema or breakdown Monofilament test: absent Pulses: Dorsalis Pedis: 1+ and Posterior Tibialis: 1+ Vibratory sensation: diminished Sharp/dull discrimination: moderately reduced 11-17 Extremities: No tremor of the outstretched hands is noted; palms not unusually warm or moist. Skin: No jaundice, petechiae, hyperpigmentation or unusual bruising are noted today. Laboratory: Lab Results Component Value Date HGBA1C 7.8 (H) 06/26/2017 HGBA1C 8.7 (H) 03/20/2017 HGBA1C 7.7 (H) 10/19/2016 LDL 117 10/19/2016 LDL 69 06/09/2015 HDL 69 10/19/2016 HDL 70 06/09/2015 TRIG 75 10/19/2016 TRIG 50 06/09/2015 TSH 0.120 (L) 10/19/2016 TSH 0.070 (L) 04/11/2016 TSH 1.250 06/09/2015 CREATININE 2.10 (H) 07/19/2017 MICROALBUR 39 (H) 07/19/2017 MICROALBUR 6 06/26/2017 GFRNONAA 34 06/09/2015 GFRNONAA 25 02/24/2015 Impression: 1. Type 1 Diabetes Mellitus under excellant control based upon current A1c and fingerstick glucose data. 2. Severe autonomic neuropathy/gastroparesis, likely related to #1 3. Chronic renal insufficiency, currently seeing Dr. Galicia 4. Orthostatic hypotension, secondary to #2 5. Adrenal insufficiency 6. Hyperparathyroidism, likely related to #3 7. Osteoporosis 8. History of strokes x 3 9. Dyslipidemia 10. GERD 11. Reversed Circadian Rhythm 12. Hypoglycemia unawareness 13. Anemia She is taking armour thyroid from Dr. Elena Ramos in . Recommendations: 1. Continue current basal/bolus insulin regimen 2. Dilated eye examination yearly per ADA recommendations. 3. Influenza immunization (flu shot) each year in the fall per CDC guidelines. 4. Ms. Oliver will FAX or drop self-monitoring glucose data to us if any consistent low or high glucose trends are noted in the coming weeks. 5. She was given an updated medication list today as we finished our visit. 6. Follow-up appointment with us in 3 months with A1c and cp drawn beforehand. [facility] [address] [place] [address] Electronically Signed 10/10/2017 3:32 PM rosie this encounter Plan of Treatment Upcoming Encounters Date Type Specialty Care Team Description 01/16/2018 Follow-Up Endocrinology Mikel Augustine, SPEEDER MACHINE OPERATOR [address] [place] [address] [phone] 01/18/2018 Office Visit Family Medicine Kayode Espinosa MD [address] [facility] [address] [place] [address] [phone] Scheduled Tests Name Priority Associated Diagnoses Order Schedule Hemoglobin A1c Routine Diabetes mellitus type 1 every 3 months for 4 with complications (HCC) Occurrences starting 10/10/2017 until 01/03/2019 Comprehensive metabolic Routine Diabetes mellitus type 1 every 3 months for 6 panel with complications (HCC) Occurrences starting 10/10/2017 until 01/03/2019 as of this encounter Visit Diagnoses Diagnosis Diabetes mellitus type 1 with complications (HCC) - Primary Type I (juvenile type) diabetes mellitus with unspecified complication, not stated as uncontrolled
--- OUTSIDE RECORDS SUMMARY | 2017-12-14 20:57 | External Medical Summary | Encounter Summary ---
:1950 Author Organization [facility] Address [address] [address] Care Team Providers Name Role Phone Mikel Augustine SPORTS CARTOONIST Unavailable Kayode Espinosa MD Primary Care Provider Encounter Details Date Type Department Care Team Description 10/16/2017 Chart Note [place] [facility] [address] [facility] [address] [place], [place] [address] Social History Tobacco Use Types Packs/Day Years Used Date Former Smoker Smokeless Tobacco: Never Used Comments: Quit smoking: Year stopped 1969/Number of yrs: /Packs per day: /Pack years: Sex Assigned at Date Recorded Not on file as of this encounter Plan of Treatment Upcoming Encounters Date Type Specialty Care Team Description 01/16/2018 Follow-Up Endocrinology Mikel Augustine, SPORTS CARTOONIST [address] [place] [phone] 01/18/2018 Office Visit Family Medicine Kayode Espinosa MD [id number] [place], [place] [address] as of this encounter Visit Diagnoses Not on filein this encounter
--- OUTSIDE RECORDS SUMMARY | 2017-12-14 20:57 | External Medical Summary | Encounter Summary ---
:1950 Author Organization [facility] Address [address] [place] [address] Care Team Providers Name Role Phone Mikel Augustine GYPSUM BLOCK SETTER Unavailable Kayode Espinosa MD Primary Care Provider Reason for Visit Reason Comments Other Encounter Details Date Type Department Care Team Description 09/28/2017 Telephone [facility] Kayode Espinosa MD Other Medicine - [place] [address] [place] [address] [place], [place] [phone] Social History Tobacco Use Types Packs/Day Years Used Date Former Smoker Smokeless Tobacco: Never Used Comments: Quit smoking: Year stopped 1969/Number of yrs: /Packs per day: /Pack years: Sex Assigned at Date Recorded Not on file as of this encounter Plan of Treatment Upcoming Encounters Date Type Specialty Care Team Description 01/16/2018 Follow-Up Endocrinology Mikel Augustine, GYPSUM BLOCK SETTER [address] [place] [phone] 01/18/2018 Office Visit Family Medicine Kayode Espinosa MD [address] [place], [place] [address] as of this encounter Visit Diagnoses Not on filein this encounter
--- OUTSIDE RECORDS SUMMARY | 2017-12-14 20:57 | External Medical Summary | Encounter Summary ---
:1950 Author Organization [facility] Address [address] [address] Care Team Providers Name Role Phone Mikel Augustine TEACHERS AIDE Unavailable Kayode Espinosa MD Primary Care Provider Reason for Visit Reason Comments Question Encounter Details Date Type Department Care Team Description 09/29/2017 Telephone [place] [facility] Iman Gibbs, AMAYA [facility]ated [facility] [place] [facility] [address] [facility] [address] [place], [place] [address] Social History Tobacco Use Types Packs/Day Years Used Date Former Smoker Smokeless Tobacco: Never Used Comments: Quit smoking: Year stopped 1969/Number of yrs: /Packs per day: /Pack years: Sex Assigned at Date Recorded Not on file as of this encounter Plan of Treatment Upcoming Encounters Date Type Specialty Care Team Description 01/16/2018 Follow-Up Endocrinology Mikel Augustine, TEACHERS AIDE [address] [place] [phone] 01/18/2018 Office Visit Family Medicine Kayode Espinosa MD [address] [place], [place] [address] as of this encounter Visit Diagnoses Not on filein this encounter
--- OUTSIDE RECORDS SUMMARY | 2017-12-14 20:57 | External Medical Summary | Encounter Summary ---
:1950 Author Organization [facility] Address [address] [place] [address] Care Team Providers Name Role Phone Mikel Augustine ROOFER HELPER Unavailable Kayode Espinosa MD Primary Care Provider Encounter Details Date Type Department Care Team Description 10/05/2017 Orders Only [facility] Vj Galicia MD Chronic kidney Laboratory - [place] [address] disease, stage III [address] (moderate) (Primary E [place], [place] Dx) [place] [address] Social History Tobacco Use Types Packs/Day Years Used Date Former Smoker Smokeless Tobacco: Never Used Comments: Quit smoking: Year stopped 1969/Number of yrs: /Packs per day: /Pack years: Sex Assigned at Date Recorded Not on file as of this encounter Plan of Treatment Upcoming Encounters Date Type Specialty Care Team Description 01/16/2018 Follow-Up Endocrinology Mikel Augustine, ROOFER HELPER [address] [place] [phone] 01/18/2018 Office Visit Family Medicine Kayode Espinosa MD [address] [place] [address] [phone] Scheduled Tests Name Priority Associated Diagnoses Order Schedule Basic metabolic panel Routine Chronic kidney disease, Expected: 12/19/2017 stage III (moderate) (Approximate), Expires: 12/05/2018 as of this encounter Visit Diagnoses Diagnosis Chronic kidney disease, stage III (moderate) - Primary Chronic kidney disease, Stage III (moderate)
--- OUTSIDE RECORDS SUMMARY | 2017-12-14 20:57 | External Medical Summary | Encounter Summary ---
:1950 Author Organization [facility] Address [address] [address] Care Team Providers Name Role Phone Mikel Augustine WOOD SCALER Unavailable Kayode Espinosa MD Primary Care Provider Reason for Visit Reason Comments Medication Refill Encounter Details Date Type Department Care Team Description 09/25/2017 Refill [place] [facility] Ulysses Gomez MD Medication Refill [address] [facility] [address] [address] [place], [place] [address] Social History Tobacco Use Types Packs/Day Years Used Date Former Smoker Smokeless Tobacco: Never Used Comments: Quit smoking: Year stopped 1969/Number of yrs: /Packs per day: /Pack years: Sex Assigned at Date Recorded Not on file as of this encounter Plan of Treatment Upcoming Encounters Date Type Specialty Care Team Description 01/16/2018 Follow-Up Endocrinology Mikel Augustine, WOOD SCALER [address] [phone] 01/18/2018 Office Visit Family Medicine Kayode Espinosa MD [address] [facility] [address] [place] [address] [phone] as of this encounter Visit Diagnoses Diagnosis Type 1 diabetes mellitus without complication (HCC) Type I (juvenile type) diabetes mellitus without mention of complication, not stated as uncontrolled
--- OUTSIDE RECORDS SUMMARY | 2017-12-14 20:57 | External Medical Summary | Encounter Summary ---
:1950 Author Organization [facility] Address [address] [address] Care Team Providers Name Role Phone Mikel Augustine UNIT CONTROL WORKER Unavailable Kayode Espinosa MD Primary Care Provider Reason for Visit Reason Comments Question Encounter Details Date Type Department Care Team Description 10/18/2017 Telephone [place] [facility] Iman Gibbs, AMAYA [facility] [address] [facility] [address] [place], [place] [address] Social History Tobacco Use Types Packs/Day Years Used Date Former Smoker Smokeless Tobacco: Never Used Comments: Quit smoking: Year stopped 1969/Number of yrs: /Packs per day: /Pack years: Sex Assigned at Date Recorded Not on file as of this encounter Plan of Treatment Upcoming Encounters Date Type Specialty Care Team Description 01/16/2018 Follow-Up Endocrinology Mikel Augustine, UNIT CONTROL WORKER [address] [place] [phone] 01/18/2018 Office Visit Family Medicine Kayode Espinosa MD [id number] [place], [place] [address] as of this encounter Visit Diagnoses Not on filein this encounter
--- OUTSIDE RECORDS SUMMARY | 2017-12-14 20:57 | External Medical Summary | Encounter Summary ---
:1950 Author Organization [facility] Address [address] [place] [address] Care Team Providers Name Role Phone Mikel Augustine DERRICK ENGINEER Unavailable Kayode Espinosa MD Primary Care Provider Encounter Details Date Type Department Care Team Description 09/21/2017 [facility] MULTIPLE TESTS [place], [place] Social History Tobacco Use Types Packs/Day Years Used Date Former Smoker Smokeless Tobacco: Never Used Comments: Quit smoking: Year stopped 1969/Number of yrs: /Packs per day: /Pack years: Sex Assigned at Date Recorded Not on file as of this encounter Plan of Treatment Upcoming Encounters Date Type Specialty Care Team Description 01/16/2018 Follow-Up Endocrinology Mikel Augustine, DERRICK ENGINEER [address] [place] [phone] 01/18/2018 Office Visit Family Medicine Kayode Espinosa MD [address] [place] [address] [phone] as of this encounter Visit Diagnoses Not on filein this encounter
--- OUTSIDE RECORDS SUMMARY | 2017-12-14 20:57 | External Medical Summary | Encounter Summary ---
:1950 Author Organization [facility] Address [address] [place] [address] Care Team Providers Name Role Phone Mikel Augustine SUPERVISOR CUSTOMER SERVICES Unavailable Kayode Espinosa MD Primary Care Provider Encounter Details Date Type Department Care Team Description 10/11/2017 [facility] MULTIPLE TESTS [place], [place] Social History Tobacco Use Types Packs/Day Years Used Date Former Smoker Smokeless Tobacco: Never Used Comments: Quit smoking: Year stopped 1969/Number of yrs: /Packs per day: /Pack years: Sex Assigned at Date Recorded Not on file as of this encounter Plan of Treatment Upcoming Encounters Date Type Specialty Care Team Description 01/16/2018 Follow-Up Endocrinology Mikel Augustine, SUPERVISOR CUSTOMER SERVICES [address] [place] [phone] 01/18/2018 Office Visit Family Medicine Kayode Espinosa MD [id number] [place] [address] [phone] as of this encounter Visit Diagnoses Not on filein this encounter
--- OUTSIDE RECORDS SUMMARY | 2017-12-14 20:58 | External Medical Summary | Encounter Summary ---
:1950 Author Organization [facility] Address [address] [address] Care Team Providers Name Role Phone Mikel Augustine KEVON Unavailable Kayode Espinosa MD Primary Care Provider Encounter Details Date Type Department Care Team Description 09/19/2017 [facility] [address] [facility] [address] [facility] [address] [place] [address] [place] [address] [phone] Social History Tobacco Use Types Packs/Day Years Used Date Former Smoker Smokeless Tobacco: Never Used Comments: Quit smoking: Year stopped 1969/Number of yrs: /Packs per day: /Pack years: Sex Assigned at Date Recorded Not on file as of this encounter Progress Notes Kayode Espinosa MD - 09/19/2017 11:59 AM VAULT WORKER-Per communication from [facility], patient has suicidal ideation and refuses volunary transfer to the ED. I asked my nurse to contact [facility] to see if they would perform psychiatric assessment to determine if she is at high risk of self-harm/suicide to see if she needs to go to the ED potentially even against her will. She is a high risk of suicide as her male partner recently committed suicide. She is currently on a one-to-one with nursing for suicide precautions. Also, we refilled the lorazepam 0.5 mg to use every 4 hours as needed for anxiety. I prescribed 60 pills with no refills. We will not plan to continue lorazepam fdc. She may require further psychiatric evaluation /treatment in the future. Kayode Espinosa M.D.in this encounter Plan of Treatment Upcoming Encounters Date Type Specialty Care Team Description 01/16/2018 Follow-Up Endocrinology Mikel Augustine, [facility] [address] [phone] 01/18/2018 Office Visit Family Medicine Kayode Espinosa MD [address] [phone] as of this encounter Visit Diagnoses Not on filein this encounter
--- OUTSIDE RECORDS SUMMARY | 2017-12-14 20:58 | External Medical Summary | Encounter Summary ---
:1950 Author Organization [facility] Address [address] [address] Care Team Providers Name Role Phone Mikel Augustine Adan LUND Unavailable Kayode Espinosa MD Primary Care Provider Reason for Visit Reason Comments Suicidal Encounter Details Date Type Department Care Team Description 09/19/2017 [facility] Dawit Carter, Suicidal thoughts Post-Acute Savi Mak APRN (Primary Dx) [facility] [address] 113[address] [facility] [place] [address] [place] [address] [phone] Social History Tobacco Use Types Packs/Day Years Used Date Former Smoker Smokeless Tobacco: Never Used Comments: Quit smoking: Year stopped 1969/Number of yrs: /Packs per day: /Pack years: Sex Assigned at Date Recorded Not on file as of this encounter Progress Notes Savi Carter APRN - 09/19/2017 11:59 PM CSTFormatting of this note may be different from the original. [facility] Progress Note 09/19/2017 Name: Aleisha Oliver : 1950 Facility: [facility] Type of Visit: Acute Visit Aleisha Oliver is a 67 y.o. female who had concerns including Suicidal. Patient Active Problem List Diagnosis GERD (gastroesophageal reflux disease) Type I diabetes mellitus (HCC) Gastroparesis Healthcare maintenance CKD (chronic kidney disease) Orthostatic hypotension Adrenal insufficiency (HCC) Hyperparathyroidism (HCC) Osteopenia History of stroke Hyperlipidemia Anemia Vitamin B 12 deficiency Stroke (HCC) Seborrheic dermatitis Not currently working due to disabled status Constipation Circadian rhythm disorder Encounter for monitoring statin therapy Resides in alf facility UTI (urinary tract infection) Anxiety Poor appetite Suicidal ideation HPI/Current Issues: Ms. Oliver was seen today due to her expression of suicidal thoughts. Per nursing reports the patient had expressed to staff that she wanted to so she could be with her best friend (her ). Staff had wanted to send her to the ER, however the patient refused to go. Steward/Stewardess Bath, Pastoral Services and a 1:1 sitter were brought into her care. Steward/Stewardess Bath and Pastoral Services spoke with the patient regarding her remarks and counseled her. Nursing reports that the patient is annoyed by the 1:1 sitter and since speaking with Steward/Stewardess Bath and Pastoral Services that she has been repeatedly stating if she wanted to kill herself she would already be . Ms. Oliver was seen in her room with her youngest daughter present. She states she is ready to leave and go out with her daughter and doesn't have time to speak with me. This provider explained she would have to have a discussion prior to her leaving. She agreed to discuss what was going on. Ms. Oliver states that she had stated she wanted to to be with her , but this was said in sadness. She states she did speak with pastoral care services and is trying to understand why her committed suicide and that she has to be forgiving of his action. She also thinks everyone's concerns are not warranted. She states if she wanted to commit suicide she wouldn't tell anyone and the staff would find her too late to do anything about it. She admits to having the thoughts but does deny having a plan to carry out the act. She has agreed to tell staff when she is having thoughts of suicide in order to help her. Outpatient Prescriptions Marked as Taking for the 09/19/17 encounter (Custodial ) with Savi Carter APRN Medication Sig Note GUANAKO CONTOUR NEXT test strip Use to check capillary blood glucose subcutaneously 8 times daily. This brand works with insulin pump clindamycin (CLINDAGEL) 1 % gel Apply topically daily. clobetasol (TEMOVATE) 0.05 % external solution 12/31/2015: Received from: External Pharmacy clopidogrel (PLAVIX) 75 MG tablet Take 1 tablet by mouth daily. 03/21/2017: Received from: External Pharmacy fludrocortisone (FLORINEF) 0.1 MG tablet Take 0.1 mg by mouth daily. fluocinolone (SYNALAR) 0.01 % external solution Apply 1 drop topically daily. 03/21/2017: Receivedfrom: External Pharmacy glucagon (GLUCAGON EMERGENCY) 1 MG injection Inject [...] exceed a daily dose of 3 mg methylphenidate (RITALIN) 20 MG tablet Take 20 mg by mouth 3 (three) times daily. 07/17/2017: Received from: External Pharmacy midodrine (PROAMATINE) 5 MG tablet Take 5 mg by mouth 3 (three) times daily. multivitamin (THERAPEUTIC) TABS tablet Take 1 tablet by mouth daily. Reported on 07/20/2016 nortriptyline (PAMELOR) 10 MG capsule Take 2 capsules (20 mg total) by mouth at bedtime. NOVOLOG 100 UNIT/ML injection INJECT PER INSULIN PUMP; WITH A TOTAL DAILY DOSE OF APPROXIMATELY 33 UNITS omeprazole (PRILOSEC) 10 MG capsule Take 10 mg by mouth every other day. ondansetron (ZOFRAN) 4 MG tablet TAKE ONE TABLET BY MOUTH EVERY 8 HOURS NEEDED FOR NAUSEA ondansetron (ZOFRAN-ODT) 4 MG disintegrating tablet Take 4 mg by mouth as needed. 08/21/2017: Received from: External Pharmacy polyethylene glycol (MIRALAX) powder take (17G) by oral route every day mixed with 8 oz. water, juice, soda, coffee or tea Probiotic Product (PROBIOTIC DAILY PO) Take 1 tablet by mouth daily. pyridostigmine (MESTINON) 60 MG tablet Take 0.5 tablets (30 mg total) by mouth 3 (three) times daily. Salicylic Acid (SCALPICIN EX) Apply 2 Application [...] mouth at bedtime. Med Name:Kavonase for sleep Allergies Allergen Reactions Gralise [Gabapentin] Other (See [...] Other (See Comments) Patient unsure of reaction Family History Problem Relation Age of Onset Other Other Social History Social History Marital status: Spouse name: N/A Number of children: N/A Years of education: N/A Social History Main Topics Smoking status: Former Smoker Smokeless tobacco: Never Used Comment: Quit smoking: Year stopped 1969/Number of yrs: /Packs per day: / Pack years: Alcohol use Not on file Comment: Alcoholic Drinks/day: Never Drug use: Unknown Sexual activity: Not on file Other Topics Concern Not on file Social History Narrative Patient is from a [place] town in [place], [place]. She currently lives in [place], [place] with her . 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 She is in a wheelchair today and hassignificant weakness. She sees multiple physicians and is on multiple medications including typically prescribed medications as well as homeopathic medications. She was seeing Dr. Gorman for primary care but then had to switch as he is no longer taking her insurance. She has an insulin pump for type 1 diabetes and follows with [facility] endocrinology (07/17/17) Past Medical History: Diagnosis Date Adrenal insufficiency (HCC) Anemia Autonomic instability Circadian rhythm disorder CKD (chronic kidney disease) Constipation Diabetes mellitus type 1 (HCC) Gastroparesis due to nerve disease due to DM type 1 GERD (gastroesophageal reflux disease) Hyperparathyroidism (HCC) secondary to CKD Not currently working due to disabled status Orthostatic hypotension Osteoporosis per patient report (07/2017) Seborrheic dermatitis Stroke (HCC) 4 strokes per her report (2017) Vitamin B 12 deficiency History of gettig vit B12 injections, not currently (07/2017) Review of Systems: Review of systems obtained from: Nursing staff and the patient Constitutional: negative HEENT: negative Cardiac: negative Vascular: negative Respiratory: negative Gastro-Intestinal: negative Genital-urinary: negative Musculoskeletal: weakness Skin: negative Neuro: negative Psych: suicidal thoughts Physical Exam: There were no vitals taken for this visit. General: Adult female, alert, cooperative, in no distress, appearing her stated age Skin: Warm and dry Head: Normocephalic Eyes: EOMs intact, PERRLA Coronary: Regular rate and rhythm, no murmurs Lungs: Clear to auscultation bilaterally, respirations unlabored Abdomen: Soft, non-tender, non-distended, bowel sounds present, insulin pump in place Ext: No edema Vascular: Distal pulses intact Psych: Normal affect Neuro: Oriented x 3, BLAND x 4 Code Status: Full Code Labs: Reviewed in chart Assessment and Plan: 1. Suicidal thoughts 1. Suicidal thoughts: - Patient has supportive services in place. 1:1 sitter can be discontinued at this time since she does not have a plan to carry out and is denying current thoughts of suicide. - She has verbally agreed to inform staff if she has further thoughts or develops a plan to carry out the act of suicide. Continue to monitor the patient. - She would benefit from a psychiatric evaluation, which is being discussed with family via Dr. Espinosa. - If patient becomes actively suicidal she is to be sent to the ER immediately for evaluation. - Use prn lorazepam for anxiety Follow-up: As needed Time on visit: 30 minutes spent on evaluation and in counseling of patient. Savi Carter APRN Electronic Signature 10/01/2017 1:43 PMin this encounter Plan of Treatment Upcoming Encounters Date Type Specialty Care Team Description 01/16/2018 Follow-Up Endocrinology Mikel Augustine APRN [address] [phone] 01/18/2018 Office Visit Family Medicine Kayode Espinosa MD [address] [facility] [address] [place] [address] [phone] as of this encounter Visit Diagnoses Diagnosis Suicidal thoughts - Primary Suicidal ideation
[2017-12-14] MEDS ORDERED: HALOPERIDOL 5 MG/ML INJECTION IM PRN (21:47)
[2017-12-14] MEDS ORDERED: HALOPERIDOL 0.5 MG TABLET PO PRN (21:47)
[2017-12-14] MEDS ORDERED: LORazepam 0.5 MG TABLET PO PRN (21:47)
[2017-12-15] MEDS ORDERED: DEXTROSE 50% SYRINGE 50ml (1 AMP) IVP PRN (03:46)
[2017-12-15] MEDS: INSULIN ASPART 100unit/ml INJECTION SQ PRN ×3 (03:48→21:11)
[2017-12-15] MEDS ORDERED: ONDANSETRON 4 MG TABLET PO PRN (04:29)
[2017-12-15 04:51] VITALS: BMI 20.9
[2017-12-15] MEDS ORDERED: INSULIN ASPART 100unit/ml INJECTION SQ ONE (06:12)
[2017-12-15] MEDS ORDERED: ONDANSETRON ODT 4 MG TABLET SL PRN (08:00)
[2017-12-15] MEDS: PANTOPRAZOLE 20 MG TABLET PO SCH (10:50)
[2017-12-15] MEDS: ONDANSETRON 4 MG TABLET PO PRN ×2 (10:52→17:17)
[2017-12-15] MEDS: POLYETHYL GLYCOL 3350 17gm PACKET PO SCH (10:52)
[2017-12-15] MEDS: INSULIN DETEMIR 100unit/ml INJECTION SQ SCH ×2 (11:02→12:52)
[2017-12-15] MEDS: CLOPIDOGREL 75 MG TABLET PO SCH ×2 (11:04→12:51)
[2017-12-15] MEDS: FLUDROCORTISONE 0.1 MG TABLET PO SCH ×2 (11:05→12:51)
[2017-12-15] MEDS: PYRIDOSTIGMINE 60 MG TABLET PO SCH ×4 (11:05→21:07)
[2017-12-15] MEDS: NORTRIPTYLINE 25 MG CAPSULE PO SCH ×2 (11:05→13:21)
[2017-12-15] MEDS: LACTOBACILLUS (15B cfu) CAPSULE PO SCH ×2 (11:05→13:21)
[2017-12-15] MEDS: PHENAZOPYRIDINE 95 MG TABLET PO SCH ×2 (11:05→13:21)
[2017-12-15] MEDS: MIDODRINE 5 MG TABLET PO SCH ×4 (11:05→15:56)
--- NOTE | 2017-12-15 15:42 | 24 Hour Neuropsychiatic Eval ---
Date of Admission: 12/14/17 20:45 Chief complaint: "I have anger" History of Present Illness: Patient is a 67-year-old , retired female with myasthenia gravis who was admitted to [facility] on 12/14/17 due to problematic behavior at her care facility, [facility], in [place], [place]. Patient has reportedly been having anger outbursts with verbal aggression towards staff, making false accusations towards staff requiring 2 people to care for her at all times, suspected of causing herself to vomit, threatening to leave the facility, and then recently threatened suicide with plan to use her insulin pump. Her insulin pump was since removed and patient has now been put on sliding scale insulin with consistent carbohydrate diet. On interview, patient is irritable, dismissive and demanding. She gives me very little information about behavior other than "anger" and says she was referred by her doctor, she is unsure why. She directs focus to perceived mistakes made by various members of staff ("The nurses are trying to give me the wrong medicine, at [facility] and here.") She says her mood is "more angry here" about "everything I (the doctor) am doing." When asked what upset her, she then says, "You're not doing anything." I reminded her that she was admitted overnight and I am just now meeting her, and would like to complete information gathering to avoid making premature recommendations for threatment. She is upset that her Ritalin was held as she says it is for her hypotension and " there is no substitute." She is upset that her insulin pump was taken away though she admits she threatened suicide with it. She denies that plan now and when asked why she wouldn't kill self (such as protective factors), she says, " I don't want to." I discussed protective factors such as marilyn or her family and she denied having any. Sh eis upset that the hospital changed her diet to carb consistent and that she is on injectable insulin now. She denies HI and becomes angry when I ask about AVH, denying history of symtpoms consistent with bipolar disorder, psychosis, or PTSD. In regards to sleep, patient states, "I don't sleep. My circadian rhythm is upside down." She states that she typically sleeps during the day and has done so for 20 years. (Was on Ritalin 20mg TID prior to admission that may have interfered with sleep). She denies change in appetite and denies anhedonia. Patient does complain of diminished quality of life secondary to myasthenia gravis because "she can't use her hands, she's shaky on her feet, and she can't stand up." In regards to guilt, patient does admit to feeling guilty due to her 's recent suicide. Patient denies significant anxiety. Past psych hx: Patient denies any hx of suicide attempts or psychiatric hospitalizations. She states she was on Wellbutrin and Cymbalta in the past, and they were helpful for her low BP. She states that Cymbalta gave her nightmares. Nursing note at time of admission: "Family notified that pt arrived to unit but was very angry about how her medical care was being managed by [facility] in [place], [place]. Barbara spoke with the pt for awhile. Pt and family notified that pt's cell phone was not in pt's current belongings. Barbara was ok with this. Barbara and her sister spoke with me for several minutes about pt's personality quarks. Family notified me that pt has had orthostatic blood pressure problems in past that has contributed to pt's falls. Some symptoms included pt displaying agonal breathing accompanied by gurgling noises. Family informed me that pt's in past at home would reverse Trendelenburg pt and cognitive status would be restored in "a few minutes." Family advised that this would be passed along to nursing staff and Dr. Matute would be informed. Family indicated that they felt reassured after discussing expectations of pt care. Family advised that Dr. Matute would do a general evaluation of medical information and then discuss with patient plan of care and goals. Family would be notified of pt's care plan." Depression: Increased Irritability, Isolating Oneself From Friends and Family [facility] Patient Stated Medical History Cerebrovascular Accident Yes: 05/2014 Dementia Yes Syncope Yes: hypotension related Congestive Heart Failure Yes Hypertension Yes Hypotension Yes Other Cardiology Yes: pt has cardiac stents Diabetes Mellitus Type 1 Yes Other GI Yes: hx of nausea; gastroparesis Hx Renal Disease Yes Anemia Yes: chronic anemia Other Musculoskeletal Yes: autonomic neuropathy Depression Yes: Major depressive disorder Medical History Updates: Patient denies any hx of head injuries or seizures. Family History: Brother: myasthenia gravis Denies family hx of mental illness or dementia - Social History Smoking status: Never smoker Current occupational status: retired (previousy worked at [employer]) Social history: Patient grew up in [place], [place] and completed 2 years of college at [employer]. She has 2 daughters. Her committed suicide in recent months after acting as wedger and gluer for patient. Strengths: Did well on SLUMS, has DPOA, has placement Review of Systems - Constitutional Constitutional: Present: daytime sleepiness. Absent: headache(s) - EENMT Eyes: Absent: change in vision Balance: Present: other (unsteady at times related to orthostatic hypotension) - Cardiovascular Cardiovascular: Absent: chest pain - Respiratory Respiratory: Absent: dyspnea - Gastrointestinal Gastrointestinal: Absent: change in bowel habits - Musculoskeletal Musculoskeletal: Present: muscle weakness (due to myasthenia gravis) - Psychiatric Psychiatric: Present: as per HPI, abnormal sleep pattern, behavioral changes Mental Status Exam Vitals: Last Vital Signs Temp 97.5 F 12/15/17 08:00 Pulse 55 L 12/15/17 08:00 Resp 16 12/15/17 08:00 BP 145/82 H 12/15/17 09:50 Pulse Ox 94 12/15/17 08:00 Height: 1.52 m Weight: 48.7 kg - Mental Status Exam Muscle Strength/Tone: Weak Dressing: Casual Grooming: Fair Attitude: Uncooperative, Manipulative, Argumentative Motor Activity: Other (Limited movement due to myasthenia gravis but not necessarily retardation) Eye Contact: Good Speech: Normal Volume: Loud Rhythm: Appropriate Rhythm Sensory: Alert Orientation: Oriented X4 Mood: Angry Affect: Angry, Hostile Rate of Thoughts: Appropriate Rate Thought Organization: Organized Associations: Intact Abstract Reasoning: Poor abstract reasoning Thought Content: Helplessness, Somatic Concerns, Other (Angry at various members of staff for perceived mistakes, perseverates on this) Perception/Psychotic: Perception Normal Language: Naming Intact Fund of Knowledge: Kike aware current events Memory: Grossly Intact Suicidal Ideation: Other (Denies on interview but reported SI with plan to use insulin pump at facility) Homicidal Ideation: Denies Insight: Impaired Judgement: Impaired Impulse Control: Poor - Laboratory Laboratory Results - last 24 hr 12/14/17 12/15/17 12/15/17 21:29 03:36 06:06 Glucometer 101 367 292 Ur Collection Type Urine Color Urine Clarity Urine pH Ur Specific [place] Urine Protein Urine Glucose (UA) Urine Ketones Urine Occult Blood Urine Nitrate Urine Bilirubin Urine Urobilinogen Ur Leukocyte Esterase Urine RBC Urine WBC Ur Squamous Epith Cells Urine Bacteria Ur Culture Indicated? 12/15/17 12/15/17 12/15/17 08:28 11:06 12:33 Glucometer 191 225 353 Ur Collection Type Urine Color Urine Clarity Urine pH Ur Specific [place] Urine Protein Urine Glucose (UA) Urine Ketones Urine Occult Blood Urine Nitrate Urine Bilirubin Urine Urobilinogen Ur Leukocyte Esterase Urine RBC Urine WBC Ur Squamous Epith Cells Urine Bacteria Ur Culture Indicated? 12/15/17 12/15/17 12:51 13:51 Glucometer 376 Ur Collection Type Urine, void-cc/notcc Urine Color Yellow Urine Clarity Clear Urine pH 7.0 Ur Specific [place] 1.010 L Urine Protein Negative Urine Glucose (UA) 3+ A Urine Ketones Negative Urine Occult Blood Negative Urine Nitrate Positive A Urine Bilirubin Negative Urine Urobilinogen 0.2 Ur Leukocyte Esterase Negative Urine RBC 0-1 Urine WBC 1-3 Ur Squamous Epith Cells 5-10 Urine Bacteria Trace H Ur Culture Indicated? Cult reflexed &setup Assessment and Plan (1) Suicidal ideation Current visit: Yes Status: Acute (2) Mood disorder Problem details: unspecified Current visit: Yes Status: Acute (3) Myasthenia gravis Current visit: Yes Status: Acute (4) Diabetes mellitus, type II Current visit: Yes Status: Acute (5) Orthostatic hypotension Current visit: Yes Status: Acute Agree with admission to [facility] [place] for psychiatric evaluation and stabilization. Maintain safety and elopement precautions. Standard on admission: CBC, CMP, TSH, UA, Vitamin B12, folate and EKG. Will consult hospitalist for optimization of medical comorbidities. Held Ritalin upon admission d/t extreme irritability/lability, complaint of insomnia. Will hold Nortriptyline, Seroquel due to intermittent orthostatic hypotension. Will obtain further collateral from family, facility in regards to behaviors. Will network with other providers, including neurologist. Patient may not leave AMA. If patient attempts to leave, may need to place involuntary court hold.
[2017-12-15] MEDS ORDERED: QUETIAPINE 50 MG TABLET PO SCH (21:00)
[2017-12-15] MEDS ORDERED: ATORVASTATIN 10 MG TABLET PO SCH (21:00)
[2017-12-15] MEDS: INSULIN ASPART 100unit/ml INJECTION SQ SCH ×2 (21:07→21:08)
[2017-12-15] MEDS: ATORVASTATIN 10 MG TABLET PO SCH (21:07)
[2017-12-16] MEDS: MIDODRINE 5 MG TABLET PO SCH ×4 (06:15→15:58)
[2017-12-16] MEDS: PANTOPRAZOLE 20 MG TABLET PO SCH ×2 (06:16→07:41)
[2017-12-16] MEDS: INSULIN ASPART 100unit/ml INJECTION SQ PRN ×3 (07:22→20:23)
--- NOTE | 2017-12-16 09:04 | History & Physical Report ---
History of Present Illness Date: 12/16/17 Chief complaint: increasing behaviors-anger outbursts, demanding/hostile behaviors HPI: Patient is a 67-year-old female who was referred to [facility] from [facility] in [place] due to anger outbursts, irritability and aggressive episodes. Her retirement had a difficult time taking care of her due to her behaviors and poor compliance as she refuses medications. She was recently admitted to [facility] in [place] on 12/12/17 following an unresponsive episode for which she was brought in by EMS. At that time, her systolic blood pressure was in the 50s initially. She was given fluids and her vital signs stabilized. Patient had refused to Midodrin and Ritalin which has likely contributed to her unresponsive episode. She has diabetes mellitus, chronic kidney disease, and autonomic neuropathy. She has frequent falls due to hypotension related to autonomic neuropathy. She was being cared for by her at home up until 4-5 months ago, when she was falling so frequently, she went into the retirement, and then 3 days later her shot himself. Since that time, she has had significant depression. This morning I was called to patient's room urgently as pt had fallen off the toilet while having a bowel movement and was unresponsive. By the time I arrived to the room, she had regained consciousness and was in Trendelenburg position. She was oriented to self and was shouting that she was not going to have her blood drawn. Patient has had no medications this morning. SHe reports she usually eats breakfast in bed and sleeps until noon because her BP' s are low in the morning. Review of Systems All systems PM: 10-point ROS was reviewed, no additional remarkable complaints except (lightheaded, agitated) Past Medical History Medical History Updates: Hypertension. Autonomic neuropathy-on Midodrin and Ritalin. Diabetes-chronic insulin therapy. Chronic renal disease. Peripheral neuropathy. Gastroparesis. Hyperlipidemia. History of CVA. Coronary artery disease. Personality disorder/depression Surgical History: none Family History: Unable to Obtain - Social History Smoking status: Former smoker Substance use type: does not use Alcohol intake frequency: does not drink Current occupational status: retired Current residence: Shelter ([facility]) Social history: Her committed suicide (shot himself) in August 2017. Patient was had depression since that time, feels guilty about her 's . He was her primary caregiver prior to her move to the retirement. She was admitted to the retirement a few days prior to his . She has multiple falls due to hypotension. Medications Home Medications Medication Instructions Recorded Confirmed Type Clopidogrel [Plavix] 1 tab PO DAILY 12/14/17 12/14/17 History Florinef 0.1 mg PO DAILY 12/14/17 12/14/17 History Hydralazine HCl 10 mg IV Q4HPRN 12/14/17 12/14/17 History Insulin Detemir [Levemir] 10 unit SQ DAILY 12/14/17 12/14/17 History Insulin Pump 12/14/17 History Lactobacillus 1 tab PO DAILY 12/14/17 12/14/17 History Lipitor 10 mg PO HS 12/14/17 12/14/17 History Midodrine 5 mg PO TID 12/14/17 12/14/17 History Nortriptyline HCl [Pamelor] 50 mg PO QHSPRN 12/14/17 12/14/17 History Novolog 6 units SQ O 12/14/17 12/14/17 History PEG 3350 17gm PACKET [Miralax] 17 gm PO DAILY 12/14/17 12/14/17 History Phenazopyridine HCl 190 tab PO DAILY 12/14/17 12/14/17 History Potassium Bicarbonate/Cit AC 20 meq PO TID 12/14/17 12/14/17 History [Effer-K 20 Meq Tablet Eff] Protonix Tab 20 mg PO DAILY 12/14/17 12/14/17 History Pyridostigmine 60 mg PO TID 12/14/17 12/14/17 History Quetiapine [Seroquel] 1 tab PO HS 12/14/17 12/14/17 History Ritalin 20 mg PO TID 12/14/17 12/14/17 History Theragran 1 tab PO DAILY 12/14/17 12/14/17 History Zofran Po 4 unit PO TID PRN 12/14/17 12/14/17 History Allergies Allergy/AdvReac Type Severity Reaction Status Date / Time metoclopramide [From Reglan] Allergy Mild Verified 12/14/17 22:19 ciprofloxacin [From Cipro] Allergy Unknown Verified 05/03/18 22:16 duloxetine Allergy Unknown Verified 12/14/17 22:18 gabapentin Allergy Unknown Verified 12/14/17 22:19 hydrocodone Allergy Unknown Verified 12/14/17 22:16 levofloxacin [From Levaquin] Allergy Unknown Verified 12/14/17 22:17 promethazine Allergy Unknown Verified 12/14/17 22:17 venlafaxine [From Effexor] Allergy Unknown Verified 12/14/17 22:18 Exam Vital Signs: Temperature 98.4 F 12/15/17 21:09 Pulse Rate 67 12/15/17 21:09 Respiratory Rate 16 12/15/17 21:09 Blood Pressure 170/82 H 12/15/17 21:09 Pulse Oximetry 94 12/15/17 21:09 Height/Weight/BMI: Height 1.52 m Weight 48.7 kg Body Mass Index 20.9 - Constitutional Present: no acute distress, well nourished, well developed - Routine HEENT Exam Head: Present: normocephalic, abrasion (erythema and superficial abrasion to L forehead from fall from toilet) Eye: Present: EOMI, PERRL ENT: Present: mucous membranes moist, oropharynx clear - Routine Neck Exam Present: supple. Absent: lymphadenopathy, thyromegaly - Routine Respiratory Exam Present: CTA bilaterally. Absent: wheezes - Routine Cardiovascular Exam Present: RRR, no murmur - Routine Abdominal Exam Present: soft, normoactive bowel sounds. Absent: tenderness, distended - Routine Extremities Exam Present: no edema, normal capillary refill - Routine Skin Exam Present: dry, warm - Routine Neurological Exam Present: alert, moving all extremities, normal speech. Absent: tremors - Routine Psychiatric Exam Present: agitated. Absent: cooperative Results - Labs CBC & Chem 7: 12/16/17 10:04 12/16/17 10:04 Microbiology Results: Microbiology 12/15/17 12:51 Urine, Voided (Cc/notcc) Urine Culture - Preliminary Early growth Assessment and Plan (1) Orthostatic hypotension Current visit: Yes Status: Acute Assessment and Plan: Assessment: Major depressive d/o ? 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 Matute. EKG performed following pt's syncopal episode. Poor tracing. Appears NSR with nl rate. Pt declining labs - will try to get later when pt is more cooperative. Nursing staff to check vitals q 15 min x 2 and call me with results. Will encourage pt to take her midodrin as directed Follow I&O's to assess fluid status as pt was previously dehydrated during her acute hospital stay. Fall precautions. Neuro checks to assess for any neuro changes r/t her fall this am. If any mental changes, will check head CT. UA showed + nitrites and UC showing early growth. Pt had cath at previous facility and UA their was neg for nitrites. Will wait to treat until culture is resulted. Hospitalist service will follow pt throughout her stay. Thanks for the consult. Resuscitation Status: Full Code - Physician Narrative Physician: Kelsey Patiño MD Narrative: Date: 12/16/17 Time: 1829 I have independently evaluated and examined this patient. I reviewed the chart, the patient's history, and the LOCATION WORKER/PA's documented findings as above. We discussed and formulated the assessment and plan as above with additions as below: Mrs. Oliver was seen in the day room having supper. She spoke at length regarding her prior evaluations at [facility] and need to have her blood pressure checked supine, seated, and standing. Discussed the incompetence of prior providers, off label use of medications for her orthostatic hypotension, and that she only takes medications for hypertension when her blood pressure is low but cannot define what blood pressure she takes or doesn't take medications for. NAD, slightly disheavled appearing female Respirations nonlabored, breath sounds clear anteriorly and upper posterior tracy Regular cardiac rhythm, S1-S2 Abdomen soft, nontender Laboratory data reviewed, stage III CKD, chronic anemia. Results of UA noted. X-ray of right hand reviewed by myself-no obvious fracture in the wrist or hand. EKG also reviewed by myself-significant baseline artifact but no acute pathology. Available outpatient records reviewed; [facility] records unavailable. Nursing reports patient has been refusing medications throughout the day. Blood pressure very labile. Will request most recent [facility] consultation on Monday. Apparently Mestinon and Ritalin are both being used to manage orthostatic hypotension in this patient. I believe should benefit from some consistent medication use to avoid significant orthostasis rather than wait until she is hypotensive but based on my initial conversation with the patient I'm not sure that we will alter her pattern of behavior at this time. Will need to better define times patient typically takes medications and clarify dosing as she was very specific that Mestinon dose is 30 mg. I'll review via [facility] records further tomorrow if time permits to determine details of dosing. Hospital Course Summary Disclaimer: The visit summary below is not to be considered part of the above Progress Note. Hospital Course: 12/16/17 Agree with admission to [facility] for psychiatric eval/tx with Dr. Matute. EKG performed following pt's syncopal episode. Poor tracing. Appears NSR with nl rate. Pt declining labs - will try to get later when pt is more cooperative. Nursing staff to check vitals q 15 min x 2 and call me with results. Will encourage pt to take her midodrin as directed Follow I&O's to assess fluid status as pt was previously dehydrated during her acute hospital stay. Fall precautions. Neuro checks to assess for any neuro changes r/t her fall this am. If any mental changes, will check head CT. UA showed + nitrites and UC showing early growth. Pt had cath at previous facility and UA their was neg for nitrites. Will wait to treat until culture is resulted. Hospitalist service will follow pt throughout her stay. Thanks for the consult. Addendum entered and electronically signed by BONNIE Tracy 12/16/17 15:09 : Nurses reported pt c/o pain in R wrist within an hour or 2 following her fall. R wrist reveals bruising dorsally over the hand and wrist. SHe has tenderness over the wrist and mecarpals. NO swelling. Nl pulse, sensation intact. Xray completed - shows no fracture on my review. WIll await radiology interpretation and place pt in a wrist splint as needed for comfort.
[2017-12-16] MEDS: ONDANSETRON 4 MG TABLET PO PRN ×2 (11:00→17:19)
[2017-12-16] MEDS: FLUDROCORTISONE 0.1 MG TABLET PO SCH (11:31)
[2017-12-16] MEDS: INSULIN DETEMIR 100unit/ml INJECTION SQ SCH ×2 (11:31→11:54)
[2017-12-16] MEDS: LACTOBACILLUS (15B cfu) CAPSULE PO SCH (11:31)
[2017-12-16] MEDS: CLOPIDOGREL 75 MG TABLET PO SCH ×2 (11:31→16:01)
[2017-12-16] MEDS: POLYETHYL GLYCOL 3350 17gm PACKET PO SCH (11:32)
[2017-12-16] MEDS: PYRIDOSTIGMINE 60 MG TABLET PO SCH ×4 (11:32→20:33)
[2017-12-16] MEDS: PHENAZOPYRIDINE 95 MG TABLET PO SCH (11:32)
--- NOTE | 2017-12-16 16:17 | Neuropsych Progress Note ---
[facility] Subjective Date: 12/16/17 - Sujective/Severity of Illness Medications: Atorvastatin Calcium (Lipitor) 10 mg PO HS [facility] Last Admin: 12/15/17 21:07 Dose: 10 mg Clopidogrel Bisulfate (Plavix) 75 mg PO DAILY [facility] Last Admin: 12/16/17 16:01 Dose: 75 mg Dextrose (D50%W) 25 ml IVP PRN PRN PRN Reason: Hypoglycemia Fludrocortisone Acetate (Florinef) 0.1 mg PO DAILY [facility] Last Admin: 12/16/17 11:31 Dose: Not Given Haloperidol (Haldol) 0.5 mg PO Q6H PRN PRN Reason: Extreme agitation Haloperidol Lactate (Haldol) 0.5 mg IM Q6H PRN PRN Reason: Extreme agitation Insulin Aspart (Novolog) 6 unit SQ O [facility] Last Admin: 12/15/17 21:08 Dose: 6 unit Insulin Aspart (Novolog) 2 - 8 unit SQ SS PRN; Protocol PRN Reason: Hyperglycemia Last Admin: 12/16/17 07:22 Dose: 2 unit Insulin Detemir (Levemir) 10 unit SQ DAILY [facility] Last Admin: 12/16/17 11:54 Dose: 10 unit Lactobacillus Acidophilus (Culturelle) 1 cap PO DAILY [facility] Last Admin: 12/16/17 11:31 Dose: Not Given Lorazepam (Ativan) 0.5 mg PO Q6H PRN PRN Reason: Extreme agitation Lorazepam (Ativan Inj) 0.5 mg IM Q6H PRN PRN Reason: Extreme agitation Midodrine (Proamatine) 5 mg PO 0700,1100,1500 [facility] Last Admin: 12/16/17 15:58 Dose: Not Given Ondansetron HCl (Zofran Po) 4 mg PO Q6H PRN PRN Reason: Nausea &/or vomiting Last Admin: 12/16/17 11:00 Dose: 4 mg Pantoprazole Sodium (Protonix) 20 mg PO 0700 [facility] Last Admin: 12/16/17 07:41 Dose: Not Given Phenazopyridine HCl (Pyridium Eq) 190 mg PO DAILY [facility] Last Admin: 12/16/17 11:32 Dose: Not Given Polyethylene Glycol (Miralax) 17 gm PO DAILY [facility] Last Admin: 12/16/17 11:32 Dose: Not Given Potassium Chloride (K-Dur 20 Meq Tablet) 20 meq PO WM [facility] Last Admin: 12/16/17 11:53 Dose: Not Given Pyridostigmine [place] (Mestinon) 60 mg PO TID [facility] Last Admin: 12/16/17 15:58 Dose: Not Given Subjective: Pt seen and chart examined. Nursing reports pt is irritable and refusing meds and lab draws. On face to face the pt is angry and tearful. She admits she has anger issues and becomes tearful when talking about husbands suicide and her medical conditions. She states she believes her killed himself because he was on Zoloft and does not want to take psych meds. denies s/i. Start Time: 10:15 Stop Time: 10:30 Mental Status Exam Vitals: Last Vital Signs Temp 97.9 F 12/16/17 08:40 Pulse 67 12/16/17 13:49 Resp 16 12/16/17 13:49 BP 171/96 H 12/16/17 13:49 Pulse Ox 96 12/16/17 13:49 Height: 1.52 m Weight: 48.7 kg - Mental Status Exam Muscle Strength/Tone: Weak Dressing: Casual Grooming: Fair Attitude: Uncooperative, Manipulative, Argumentative Motor Activity: Other (Limited movement due to myasthenia gravis but not necessarily retardation) Eye Contact: Good Speech: Normal Volume: Loud Rhythm: Appropriate Rhythm Orientation: Oriented X4 Mood: Angry Rate of Thoughts: Appropriate Rate Thought Organization: Organized Associations: Intact Abstract Reasoning: Poor abstract reasoning Thought Content: Helplessness, Somatic Concerns, Other (Angry at various members of staff for perceived mistakes, perseverates on this) Perception/Psychotic: Perception Normal Language: Naming Intact Fund of Knowledge: Kike aware current events Memory: Grossly Intact Suicidal Ideation: Other (Denies on interview but reported SI with plan to use insulin pump at facility) Homicidal Ideation: Denies Insight: Impaired Judgement: Impaired Impulse Control: Poor - Laboratory Result Diagrams: 12/16/17 10:04 12/16/17 10:04 Laboratory Results - last 24 hr 12/16/17 12/16/17 12/16/17 06:49 10:04 10:04 WBC 7.6 RBC 3.64 L Hgb 10.7 L Hct 33.5 L MCV 92.0 MCH 29.4 MCHC 31.9 RDW Std Deviation 43.2 Plt Count 195 MPV 9.7 Immature Gran % (Auto) 0.4 Neut % (Auto) 63.7 Lymph % (Auto) 22.3 L Gage % (Auto) 6.9 Eos % (Auto) 6.3 H Baso % (Auto) 0.4 Neut # (Auto) 4.8 Lymph # (Auto) 1.7 Gage # (Auto) 0.5 Eos # (Auto) 0.5 Baso # (Auto) 0.0 Abs Immat Gran (auto) 0.03 Turbidity < 20 Sodium 145 H Potassium 3.9 Chloride 108 H Carbon Dioxide 27 Anion Gap 10 BUN 17.0 Creatinine 1.5 H GFR Calculation 35 BUN/Creatinine Ratio 11 Glucose 99 Glucometer 157 Calculated Osmolality 281 H Calcium 9.4 Total Bilirubin 0.50 Conjugated Bilirubin 0.00 Unconjugated Bilirubin 0.20 Icterus Index < 2 AST 23 ALT 15 Alkaline Phosphatase 90 Total Protein 6.3 Albumin 3.6 Globulin 2.7 Albumin/Globulin Ratio 1.3 TSH 4.56 Specimen Hemolysis < 15 Assessment and Plan (1) Suicidal ideation Current visit: Yes Status: Acute (2) Mood disorder Problem details: unspecified Current visit: Yes Status: Acute (3) Myasthenia gravis Current visit: Yes Status: Acute (4) Diabetes mellitus, type II Current visit: Yes Status: Acute (5) Orthostatic hypotension Current visit: Yes Status: Acute Hospital Course Summary Disclaimer: The visit summary below is not to be considered part of the above Progress Note. Hospital Course: 12/16/17 Agree with admission to [facility] for psychiatric eval/tx with Dr. Matute. EKG performed following pt's syncopal episode. Poor tracing. Appears NSR with nl rate. Pt declining labs - will try to get later when pt is more cooperative. Nursing staff to check vitals q 15 min x 2 and call me with results. Will encourage pt to take her midodrin as directed Follow I&O's to assess fluid status as pt was previously dehydrated during her acute hospital stay. Fall precautions. Neuro checks to assess for any neuro changes r/t her fall this am. If any mental changes, will check head CT. UA showed + nitrites and UC showing early growth. Pt had cath at previous facility and UA their was neg for nitrites. Will wait to treat until culture is resulted. Hospitalist service will follow pt throughout her stay. Thanks for the consult. 5/5/18- Psych- PT remains angry and irritable. Continue current care
[2017-12-16] MEDS: INSULIN ASPART 100unit/ml INJECTION SQ SCH ×2 (20:23→22:56)
[2017-12-16] MEDS: ATORVASTATIN 10 MG TABLET PO SCH (20:26)
[2017-12-17] MEDS: INSULIN ASPART 100unit/ml INJECTION SQ PRN ×4 (03:35→20:07)
[2017-12-17] MEDS: INSULIN DETEMIR 100unit/ml INJECTION SQ SCH ×2 (09:42→10:26)
[2017-12-17] MEDS: MIDODRINE 5 MG TABLET PO SCH ×5 (09:47→20:03)
[2017-12-17] MEDS: PANTOPRAZOLE 20 MG TABLET PO SCH ×2 (09:48→10:25)
[2017-12-17] MEDS: FLUDROCORTISONE 0.1 MG TABLET PO SCH ×2 (09:50→10:25)
[2017-12-17] MEDS: POLYETHYL GLYCOL 3350 17gm PACKET PO SCH ×2 (09:50→10:26)
[2017-12-17] MEDS: CLOPIDOGREL 75 MG TABLET PO SCH ×2 (09:50→10:25)
[2017-12-17] MEDS: LACTOBACILLUS (15B cfu) CAPSULE PO SCH ×2 (09:50→10:26)
[2017-12-17] MEDS: PYRIDOSTIGMINE 60 MG TABLET PO SCH ×3 (09:51→20:04)
[2017-12-17] MEDS: PHENAZOPYRIDINE 95 MG TABLET PO SCH ×2 (10:10→10:26)
--- NOTE | 2017-12-17 10:56 | XRay Report ---
Indication: fall/wrist hand pain PROCEDURE: XR hand RT min 3V: Encounter: Initial Comparison: None Findings: There is no acute fracture, dislocation or malalignment identified. Bony demineralization limiting detection of nondisplaced fractures. Impression: No acute osseous abnormality. .
--- NOTE | 2017-12-17 11:07 | Neuropsych Progress Note ---
[facility] Subjective Date: 12/17/17 - Sujective/Severity of Illness Medications: Atorvastatin Calcium (Lipitor) 10 mg PO HS [facility] Last Admin: 12/16/17 20:26 Dose: 10 mg Clopidogrel Bisulfate (Plavix) 75 mg PO DAILY [facility] Last Admin: 12/17/17 10:25 Dose: Not Given Dextrose (D50%W) 25 ml IVP PRN PRN PRN Reason: Hypoglycemia Fludrocortisone Acetate (Florinef) 0.1 mg PO DAILY [facility] Last Admin: 12/17/17 10:25 Dose: Not Given Haloperidol (Haldol) 0.5 mg PO Q6H PRN PRN Reason: Extreme agitation Haloperidol Lactate (Haldol) 0.5 mg IM Q6H PRN PRN Reason: Extreme agitation Insulin Aspart (Novolog) 6 unit SQ O [facility] Last Admin: 12/16/17 22:56 Dose: Not Given Insulin Aspart (Novolog) 2 - 8 unit SQ SS PRN; Protocol PRN Reason: Hyperglycemia Last Admin: 12/17/17 06:36 Dose: 2 unit Insulin Detemir (Levemir) 10 unit SQ DAILY [facility] Last Admin: 12/17/17 10:26 Dose: Not Given Lactobacillus Acidophilus (Culturelle) 1 cap PO DAILY [facility] Last Admin: 12/17/17 10:26 Dose: Not Given Lorazepam (Ativan) 0.5 mg PO Q6H PRN PRN Reason: Extreme agitation Lorazepam (Ativan Inj) 0.5 mg IM Q6H PRN PRN Reason: Extreme agitation Midodrine (Proamatine) 5 mg PO 0700,1100,1500 [facility] Last Admin: 12/17/17 10:24 Dose: Not Given Ondansetron HCl (Zofran Po) 4 mg PO Q6H PRN PRN Reason: Nausea &/or vomiting Last Admin: 12/16/17 17:19 Dose: 4 mg Pantoprazole Sodium (Protonix) 20 mg PO 0700 [facility] Last Admin: 12/17/17 10:25 Dose: Not Given Phenazopyridine HCl (Pyridium Eq) 190 mg PO DAILY [facility] Last Admin: 12/17/17 10:26 Dose: Not Given Polyethylene Glycol (Miralax) 17 gm PO DAILY [facility] Last Admin: 12/17/17 10:26 Dose: Not Given Potassium Chloride (K-Dur 20 Meq Tablet) 20 meq PO WM [facility] Last Admin: 12/17/17 10:25 Dose: Not Given Pyridostigmine [place] (Mestinon) 30 mg PO TID [facility] Subjective: Pt seen and chart examined. Nursing reports pt is irritable and refusing meds. On face to face the pt is angry and tearful. She states she is upset as we have her med doses wrong and are giving them at the wrong time. She is tearful and irritable. She denies any S/I. She is oriented x 3. Start Time: 10:00 Stop Time: 10:15 Mental Status Exam Vitals: Last Vital Signs Temp 98.7 F 12/17/17 08:40 Pulse 60 12/17/17 08:40 Resp 16 12/17/17 08:40 BP 146/82 H 12/17/17 08:40 Pulse Ox 93 12/17/17 08:35 Height: 1.52 m Weight: 47.9 kg - Mental Status Exam Muscle Strength/Tone: Weak Dressing: Casual Grooming: Fair Attitude: Uncooperative, Manipulative, Argumentative Motor Activity: Other (Limited movement due to myasthenia gravis but not necessarily retardation) Eye Contact: Good Speech: Normal Volume: Loud Rhythm: Appropriate Rhythm Orientation: Oriented X4 Mood: Angry Rate of Thoughts: Appropriate Rate Thought Organization: Organized Associations: Intact Abstract Reasoning: Poor abstract reasoning Thought Content: Helplessness, Somatic Concerns, Other (Angry at various members of staff for perceived mistakes, perseverates on this) Perception/Psychotic: Perception Normal Language: Naming Intact Fund of Knowledge: Kike aware current events Memory: Grossly Intact Suicidal Ideation: Other (Denies on interview but reported SI with plan to use insulin pump at facility) Homicidal Ideation: Denies Insight: Impaired Judgement: Impaired Impulse Control: Poor - Laboratory Result Diagrams: 12/16/17 10:04 12/16/17 10:04 Laboratory Results - last 24 hr 12/16/17 12/16/17 12/16/17 09:07 10:04 16:07 Glucometer 122 398 TSH 4.56 12/16/17 12/16/17 12/16/17 19:34 23:38 23:53 Glucometer 277 40 55 TSH 12/17/17 12/17/17 12/17/17 00:24 00:48 03:00 Glucometer 61 71 236 TSH 12/17/17 12/17/17 12/17/17 06:24 08:15 10:54 Glucometer 155 114 136 TSH Assessment and Plan (1) Suicidal ideation Current visit: Yes Status: Acute (2) Mood disorder Problem details: unspecified Current visit: Yes Status: Acute (3) Myasthenia gravis Current visit: Yes Status: Acute (4) Diabetes mellitus, type II Current visit: Yes Status: Acute (5) Orthostatic hypotension Current visit: Yes Status: Acute Hospital Course Summary Disclaimer: The visit summary below is not to be considered part of the above Progress Note. Hospital Course: 12/16/17 Agree with admission to [facility] for psychiatric eval/tx with Dr. Matute. EKG performed following pt's syncopal episode. Poor tracing. Appears NSR with nl rate. Pt declining labs - will try to get later when pt is more cooperative. Nursing staff to check vitals q 15 min x 2 and call me with results. Will encourage pt to take her midodrin as directed Follow I&O's to assess fluid status as pt was previously dehydrated during her acute hospital stay. Fall precautions. Neuro checks to assess for any neuro changes r/t her fall this am. If any mental changes, will check head CT. UA showed + nitrites and UC showing early growth. Pt had cath at previous facility and UA their was neg for nitrites. Will wait to treat until culture is resulted. Hospitalist service will follow pt throughout her stay. Thanks for the consult. 12/17/17 Psych- Continue current care
--- NOTE | 2017-12-17 11:14 | Progress Note ---
- Date 12/17/17 Subjective: Aleisha is seen today in follow up. Nursing staff called to report a Syncopal episode with pt. getting up to the [facility]. She developed acute loss of consciousness with agonal breathing, and a Code Blue was called. She was returned to bed, and regained normal breathing pattern and cognitive function fairly quickly. She did not require further intervention in regards to resuscitation. RN called to report concerns, therefore pt. was seen shortly thereafter. SBP at time of event dropped down into the 50's. Now returned to normal. Upon review of the medical records, it appears that orthostatic changes with syncope and agonal breathing has been an ongoing issue for this patient. She has recently been taken off of her insulin pump due to threats to kill herself by using the insulin pump to do so. She has repeatedly been poorly compliant with medications in the past and is not very cooperative with cares. I did d/w patient with nurse present. Patient is very angry- reports that her "sleep cycle" is off here and that we cannot "make her change her body." I attempted to determine patients normal sleep cycle and medication regimen, but she was fairly vague and evasive with questions. We reviewed possibly increasing her Midodrine to help with the orthostasis, but she was not agreeable to that due to concerns for resting HTN. She is unhappy that the Ritalin has been held. I did attempt to offer several options to help with safety and to minimize syncopal events- she states "This is just me. This is going to kill me. There is nothing anyone can do." She is resistant to any medication or routine changes during our discussion. She does report previously being followed by [facility], but most recent visit was about 2 years ago. She denies any history of cardiac stenting or heart disease, but I do see as part of her record that she has a diagnosis of CAD. Given severity of syncope, I did discuss code status with her. She states that she "does not know" what she would like to do if she were to fully stop breathing. I did discuss that we would need to provide full support, including CPR and possible intubation should this recur unless she left further instructions. She expresses understanding. Objective Vital signs: Temperature 98.7 F 12/17/17 08:40 Pulse Rate 60 12/17/17 08:40 Respiratory Rate 16 12/17/17 08:40 Blood Pressure 146/82 H 12/17/17 08:40 Pulse Oximetry 93 12/17/17 08:35 Height/Weight/BMI: Height 1.52 m Weight 47.9 kg Body Mass Index 20.9 - Constitutional Present: no acute distress, thin. Absent: cooperative - Routine HEENT Exam Head: Present: normocephalic Eye: Present: PERRL, periorbital ecchymosis (left eye) ENT: Present: mucous membranes dry - Routine Respiratory Exam Present: CTA bilaterally, distant breath sounds. Absent: rales, rhonchi, stridor, crackles - Routine Cardiovascular Exam Present: RRR, S1, S2, no murmur - Routine Abdominal Exam Present: soft, normoactive bowel sounds, non distended, non tender - Routine Extremities Exam Present: no edema, non tender, full ROM - Routine Musculoskeletal Exam Musculoskeletal: Present: moving extremities well - Routine Skin Exam Present: intact, dry, warm - Routine Neurological Exam Present: alert, oriented X3, moving all extremities - Routine Psychiatric Exam Present: depressed. Absent: cooperative, good insight, good judgment Results - Labs CBC & Chem 7: 12/16/17 10:04 12/16/17 10:04 Microbiology Results: Microbiology 12/15/17 12:51 Urine, Voided (Cc/notcc) Urine Culture - Preliminary Coag negative Staphylococcus - Impressions Wrist Impression: No acute osseous abnormality. . Assessment and Plan (1) Orthostatic hypotension Current visit: Yes Status: Acute Assessment and Plan: Assessment: Major depressive d/o ? 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 She is not willing for me to change her medications currently- could consider increase in Midodrine if resting BP would tolerate. I D/W RN at length- main goal is to keep patient as safe as we can from falls. May need to use a lift to help when she is getting up. She does appear a bit dehydrated on labs- push oral fluids and add oral fluid/ electrolyte replacement (Gatorade, etc). Her blood sugar has been incredibly variable. Continue PRN insulin. Insulin pump stopped due to threats of suicide by the insulin. May consider consulting Endocrine due to the complex medical condition. Follow labs periodically. Consider adjusting meds to her home timing if that can be determined. D/W RN at length as well as with Dr. Patiño. Resuscitation Status: Full Code - Physician Narrative Physician: Kelsey Patiño MD Narrative: Date: 12/17/17 Time: 2009 Indication for Ritalin and Mestinon and orthostatic hypotension reviewed yesterday evening-both have been evaluated and are included in medications that can be useful for orthostatic hypotension based on the review published several years ago by physician at [place]. Ritalin asked much as any other sympathomimetic agent will begin raising blood pressure but mechanism for Mestinon and orthostasis is less clear to me. Will attempt to pull some of the primary data and place it on the patient's chart. Mestinon dose was decreased to 30 mg 3 times a day as this was the dose being used previously in [place] and is dosed patient reported to me yesterday. Mestinon should not produce hypertension and should be encouraged to be used regularly even when blood pressure is elevated. Additionally would recommend avoiding any medication that may provoke orthostasis including Pamelor and Seroquel. Clearly patient's noncompliance with medications is a major factor in her recurrent syncopal events and may be difficult to overcome. Hospital Course Summary Disclaimer: The visit summary below is not to be considered part of the above Progress Note. Hospital Course: 12/16/17 Agree with admission to [facility] for psychiatric eval/tx with Dr. Matute. EKG performed following pt's syncopal episode. Poor tracing. Appears NSR with nl rate. Pt declining labs - will try to get later when pt is more cooperative. Nursing staff to check vitals q 15 min x 2 and call me with results. Will encourage pt to take her midodrin as directed Follow I&O's to assess fluid status as pt was previously dehydrated during her acute hospital stay. Fall precautions. Neuro checks to assess for any neuro changes r/t her fall this am. If any mental changes, will check head CT. UA showed + nitrites and UC showing early growth. Pt had cath at previous facility and UA their was neg for nitrites. Will wait to treat until culture is resulted. Hospitalist service will follow pt throughout her stay. Thanks for the consult. 12/17/17 Patient remains very uncooperative and fatalistic regarding her condition. She is not willing for me to change her medications currently- could consider increase in Midodrine if resting BP would tolerate. I D/W RN at length- main goal is to keep patient as safe as we can from falls. May need to use a lift to help when she is getting up. She does appear a bit dehydrated on labs- push oral fluids and add oral fluid/ electrolyte replacement (Gatorade, etc). Her blood sugar has been incredibly variable. Continue PRN insulin. Insulin pump stopped due to threats of suicide by the insulin. May consider consulting Endocrine due to the complex medical condition. Follow labs periodically. Consider adjusting meds to her home timing if that can be determined. D/W RN at length as well as with Dr. Patiño.
[2017-12-17] MEDS: ONDANSETRON 4 MG TABLET PO PRN ×3 (11:46→22:25)
[2017-12-17] MEDS ORDERED: PYRIDOSTIGMINE 60 MG TABLET PO SCH (15:00)
[2017-12-17] MEDS: ATORVASTATIN 10 MG TABLET PO SCH (20:04)
[2017-12-17] MEDS: INSULIN ASPART 100unit/ml INJECTION SQ SCH (20:05)
[2017-12-18] MEDS: INSULIN ASPART 100unit/ml INJECTION SQ SCH ×2 (00:42→21:49)
[2017-12-18] MEDS: ONDANSETRON 4 MG TABLET PO PRN ×4 (04:11→18:05)
[2017-12-18] MEDS: INSULIN ASPART 100unit/ml INJECTION SQ PRN ×4 (04:18→20:38)
[2017-12-18] MEDS: PANTOPRAZOLE 20 MG TABLET PO SCH (09:15)
[2017-12-18] MEDS: CLOPIDOGREL 75 MG TABLET PO SCH (09:17)
[2017-12-18] MEDS: FLUDROCORTISONE 0.1 MG TABLET PO SCH (09:21)
[2017-12-18] MEDS: LACTOBACILLUS (15B cfu) CAPSULE PO SCH (09:22)
[2017-12-18] MEDS: POLYETHYL GLYCOL 3350 17gm PACKET PO SCH (09:23)
[2017-12-18] MEDS: PHENAZOPYRIDINE 95 MG TABLET PO SCH (09:23)
[2017-12-18] MEDS: INSULIN DETEMIR 100unit/ml INJECTION SQ SCH (11:33)
[2017-12-18] MEDS: MIDODRINE 5 MG TABLET PO SCH ×3 (15:10→20:08)
[2017-12-18] MEDS: PYRIDOSTIGMINE 60 MG TABLET PO SCH ×3 (15:10→20:07)
[2017-12-18] MEDS: ATORVASTATIN 10 MG TABLET PO SCH (20:08)
[2017-12-18] MEDS ORDERED: CIPROFLOXACIN 500 MG TABLET PO SCH (21:00)
[2017-12-19] MEDS: ONDANSETRON 4 MG TABLET PO PRN ×5 (03:30→21:19)
[2017-12-19] MEDS: PANTOPRAZOLE 20 MG TABLET PO SCH (06:41)
[2017-12-19] MEDS: INSULIN ASPART 100unit/ml INJECTION SQ PRN ×4 (06:59→21:15)
[2017-12-19] MEDS: PHENAZOPYRIDINE 95 MG TABLET PO SCH (09:47)
[2017-12-19] MEDS: LACTOBACILLUS (15B cfu) CAPSULE PO SCH (09:51)
[2017-12-19] MEDS: CLOPIDOGREL 75 MG TABLET PO SCH (09:51)
[2017-12-19] MEDS: INSULIN DETEMIR 100unit/ml INJECTION SQ SCH (09:52)
[2017-12-19] MEDS: FLUDROCORTISONE 0.1 MG TABLET PO SCH (09:54)
[2017-12-19] MEDS: POLYETHYL GLYCOL 3350 17gm PACKET PO SCH (11:14)
[2017-12-19] MEDS: PYRIDOSTIGMINE 60 MG TABLET PO SCH ×3 (14:16→21:16)
[2017-12-19] MEDS: MIDODRINE 5 MG TABLET PO SCH ×3 (14:17→21:16)
--- NOTE | 2017-12-19 15:21 | Neuropsych Progress Note ---
[facility] Subjective Date: 12/19/17 - Sujective/Severity of Illness Medications: Atorvastatin Calcium (Lipitor) 10 mg PO HS [facility] Last Admin: 12/18/17 20:08 Dose: 10 mg Clopidogrel Bisulfate (Plavix) 75 mg PO DAILY [facility] Last Admin: 12/19/17 09:51 Dose: 75 mg Dextrose (D50%W) 25 ml IVP PRN PRN PRN Reason: Hypoglycemia Doxycycline Hyclate (Vibramycin) 100 mg PO BIDWM [facility] Stop: 12/25/17 23:59 Last Admin: 12/19/17 09:56 Dose: 100 mg Fludrocortisone Acetate (Florinef) 0.1 mg PO DAILY [facility] Last Admin: 12/19/17 09:54 Dose: 0.1 mg Haloperidol (Haldol) 0.5 mg PO Q6H PRN PRN Reason: Extreme agitation Haloperidol Lactate (Haldol) 0.5 mg IM Q6H PRN PRN Reason: Extreme agitation Insulin Aspart (Novolog) 6 unit SQ O [facility] Last Admin: 12/18/17 21:49 Dose: 6 unit Insulin Aspart (Novolog) 2 - 8 unit SQ SS PRN; Protocol PRN Reason: Hyperglycemia Last Admin: 12/19/17 15:06 Dose: 5 unit Insulin Detemir (Levemir) 10 unit SQ DAILY [facility] Last Admin: 12/19/17 09:52 Dose: 10 unit Lactobacillus Acidophilus (Culturelle) 1 cap PO DAILY [facility] Last Admin: 12/19/17 09:51 Dose: 1 cap Lorazepam (Ativan) 0.5 mg PO Q6H PRN PRN Reason: Extreme agitation Lorazepam (Ativan Inj) 0.5 mg IM Q6H PRN PRN Reason: Extreme agitation Midodrine (Proamatine) 5 mg PO 1400,1700,2000 [facility] Last Admin: 12/19/17 14:17 Dose: 5 mg Ondansetron HCl (Zofran Po) 4 mg PO Q6H PRN PRN Reason: Nausea &/or vomiting Last Admin: 12/19/17 03:30 Dose: 4 mg Pantoprazole Sodium (Protonix) 20 mg PO 0700 [facility] Last Admin: 12/19/17 06:41 Dose: 20 mg Phenazopyridine HCl (Pyridium Eq) 190 mg PO DAILY [facility] Last Admin: 12/19/17 09:47 Dose: 190 mg Polyethylene Glycol (Miralax) 17 gm PO DAILY [facility] Last Admin: 12/19/17 11:14 Dose: Not Given Potassium Chloride (K-Dur 20 Meq Tablet) 20 meq PO WM [facility] Last Admin: 12/19/17 15:08 Dose: Not Given Pyridostigmine Edison (Mestinon) 30 mg PO 1400,1700,2000 [facility] Last Admin: 12/19/17 14:16 Dose: 30 mg Subjective: Patient seen and chart reviewed. Case discussed with treatment team. On interview, patient is more pleasant with me than on our previous interaction , but she is focused on her irritation and complaints with various nursing staff. She makes some possibly delusional statements about staff trying to kill her with the medications they are giving her, but I don't believe these are consistent and well-formed delusions. She describes her mood as "angry" because of her above frustrations. Patient denies any SI, HI or AVH. Patient is resistant to taking antidepressants because she states her started to take Zoloft a short time before he committed suicide. She is willing to consider other medications options (such as a mood stabilizer) but states she would like more information on whichever medication is recommended. Discussed possibility of moving care facilities to be closer to [facility] in [place] and she is willing to consider this. Nursing staff report patient continues to be irritable and demanding, with illogical complaints at times. Patient has been varisbly adherent with medications. Patient slept only 3.25 hours overnight. VSS though patient has had a couple of hypotensive episodes on unit. Patient's appetite is fair. Psychotropic PRNs required in the past 24 hours: none. Will discuss care and placement with daughter/DPOA this evening. Start Time: 09:10 Stop Time: 09:30 Mental Status Exam Vitals: Last Vital Signs Temp 99 F 12/19/17 08:00 Pulse 66 12/19/17 08:00 Resp 16 12/19/17 08:00 BP 152/76 H 12/19/17 08:40 Pulse Ox 93 12/19/17 08:40 Height: 1.52 m Weight: 47.9 kg - Mental Status Exam Muscle Strength/Tone: Weak Dressing: Casual Grooming: Fair Attitude: Uncooperative, Manipulative, Argumentative Motor Activity: Other (Limited movement due to myasthenia gravis but not necessarily retardation) Eye Contact: Good Speech: Normal Volume: Loud Rhythm: Appropriate Rhythm Sensory: Alert Orientation: Oriented X4 Mood: Angry Affect: Hostile Rate of Thoughts: Appropriate Rate Thought Organization: Organized Associations: Intact Abstract Reasoning: Poor abstract reasoning Thought Content: Helplessness, Paranoia, Somatic Concerns, Other (Angry at various members of staff for perceived mistakes, perseverates on this) Perception/Psychotic: Perception Normal Language: Naming Intact Fund of Knowledge: Kike aware current events Memory: Poor-recent Suicidal Ideation: Denies Homicidal Ideation: Denies Insight: Impaired Judgement: Impaired Impulse Control: Poor - Laboratory Result Diagrams: 12/18/17 06:53 12/18/17 06:53 Laboratory Results - last 24 hr 12/18/17 12/18/17 12/18/17 06:53 17:39 20:29 Glucometer 320 152 Triglycerides 59 Cholesterol 180 LDL Cholesterol, Calc 101.2 VLDL Cholesterol 11.8 HDL Cholesterol 67 H Cholesterol/HDL Ratio 2.7 12/19/17 12/19/17 12/19/17 06:50 09:46 14:29 Glucometer 216 187 251 Triglycerides Cholesterol LDL Cholesterol, Calc VLDL Cholesterol HDL Cholesterol Cholesterol/HDL Ratio Assessment and Plan (1) Suicidal ideation Current visit: Yes Status: Acute (2) Mood disorder Problem details: unspecified Current visit: Yes Status: Acute (3) Myasthenia gravis Current visit: Yes Status: Acute (4) Diabetes mellitus, type II Current visit: Yes Status: Acute (5) Orthostatic hypotension Current visit: Yes Status: Acute Plan to discuss medication and placement options with daughter/DPOA. Will discuss mood stabilizer with daughter and provide further information to patient. Hospital Course Summary Disclaimer: The visit summary below is not to be considered part of the above Progress Note. Hospital Course: 12/16/17 Agree with admission to [facility] for psychiatric eval/tx with Dr. Matute. EKG performed following pt's syncopal episode. Poor tracing. Appears NSR with nl rate. Pt declining labs - will try to get later when pt is more cooperative. Nursing staff to check vitals q 15 min x 2 and call me with results. Will encourage pt to take her midodrin as directed Follow I&O's to assess fluid status as pt was previously dehydrated during her acute hospital stay. Fall precautions. Neuro checks to assess for any neuro changes r/t her fall this am. If any mental changes, will check head CT. UA showed + nitrites and UC showing early growth. Pt had cath at previous facility and UA their was neg for nitrites. Will wait to treat until culture is resulted. Hospitalist service will follow pt throughout her stay. Thanks for the consult. 12/17/17 Patient remains very uncooperative and fatalistic regarding her condition. She is not willing for me to change her medications currently- could consider increase in Midodrine if resting BP would tolerate. I D/W RN at length- main goal is to keep patient as safe as we can from falls. May need to use a lift to help when she is getting up. She does appear a bit dehydrated on labs- push oral fluids and add oral fluid/ electrolyte replacement (Gatorade, etc). Her blood sugar has been incredibly variable. Continue PRN insulin. Insulin pump stopped due to threats of suicide by the insulin. May consider consulting Endocrine due to the complex medical condition. Follow labs periodically. Consider adjusting meds to her home timing if that can be determined. D/W RN at length as well as with Dr. Patiño.
[2017-12-19] MEDS: INSULIN ASPART 100unit/ml INJECTION SQ SCH (21:15)
[2017-12-19] MEDS: ATORVASTATIN 10 MG TABLET PO SCH (21:17)
[2017-12-20] MEDS: INSULIN ASPART 100unit/ml INJECTION SQ PRN ×4 (07:57→18:42)
--- NOTE | 2017-12-20 07:58 | CT Scan Report ---
Indication: fall and struck head PROCEDURE: CT head/brain wo con: Encounter: Initial Comparison: None Technique: Axial CT images through the head were performed without contrast. Iterative Reconstruction dose reducing technique was utilized. FINDINGS: Large right frontal preseptal and periorbital soft tissue swelling and hematoma. The globes are intact. The lenses are located. No post septal and limitations seen on the right. Old right frontal lobe infarct with encephalomalacia. Large prior right cerebellar infarct. The ventricles are of normal size, shape, and configuration for the patient's age. There is no evidence of acute intracranial hemorrhage, midline displacement, or mass effect. There are numerous areas of low attenuation in the white matter which most likely represent changes of chronic microvascular ischemia. The CT attenuation of the brain parenchyma is otherwise normal within the cerebellum, brain stem, and cerebral hemispheres. The tympanic cavities and mastoid air cells are free of appreciable disease. There are no definite fractures of the skull base, calvarium, or visualized portion of the midface. IMPRESSION: No CT evidence of acute traumatic intracranial injury. Large amount of soft tissue swelling and hematoma in the right frontal and periorbital region. .
[2017-12-20] MEDS: ONDANSETRON 4 MG TABLET PO PRN ×2 (08:01→17:02)
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
--- NOTE | 2017-12-20 09:14 | Neuropsych Progress Note ---
[facility] Subjective Date: 12/20/17 - Sujective/Severity of Illness Medications: Atorvastatin Calcium (Lipitor) 10 mg PO HS [facility] Last Admin: 12/19/17 21:17 Dose: 10 mg Clopidogrel Bisulfate (Plavix) 75 mg PO DAILY [facility] Last Admin: 12/19/17 09:51 Dose: 75 mg Dextrose (D50%W) 25 ml IVP PRN PRN PRN Reason: Hypoglycemia Doxycycline Hyclate (Vibramycin) 100 mg PO BIDWM [facility] Stop: 12/25/17 23:59 Last Admin: 12/19/17 17:17 Dose: 100 mg Fludrocortisone Acetate (Florinef) 0.1 mg PO DAILY [facility] Last Admin: 12/19/17 09:54 Dose: 0.1 mg Haloperidol (Haldol) 0.5 mg PO Q6H PRN PRN Reason: Extreme agitation Haloperidol Lactate (Haldol) 0.5 mg IM Q6H PRN PRN Reason: Extreme agitation Insulin Aspart (Novolog) 6 unit SQ O [facility] Last Admin: 12/19/17 21:15 Dose: 6 unit Insulin Aspart (Novolog) 2 - 8 unit SQ SS PRN; Protocol PRN Reason: Hyperglycemia Last Admin: 12/20/17 07:57 Dose: 3 unit Insulin Detemir (Levemir) 10 unit SQ DAILY [facility] Last Admin: 12/19/17 09:52 Dose: 10 unit Lactobacillus Acidophilus (Culturelle) 1 cap PO DAILY [facility] Last Admin: 12/19/17 09:51 Dose: 1 cap Lorazepam (Ativan) 0.5 mg PO Q6H PRN PRN Reason: Extreme agitation Lorazepam (Ativan Inj) 0.5 mg IM Q6H PRN PRN Reason: Extreme agitation Midodrine (Proamatine) 5 mg PO 1400,1700,2000 [facility] Last Admin: 12/19/17 21:16 Dose: 5 mg Ondansetron HCl (Zofran Po) 4 mg PO Q6H PRN PRN Reason: Nausea &/or vomiting Last Admin: 12/20/17 08:01 Dose: 4 mg Pantoprazole Sodium (Protonix) 20 mg PO 0700 [facility] Last Admin: 12/19/17 06:41 Dose: 20 mg Phenazopyridine HCl (Pyridium Eq) 190 mg PO DAILY [facility] Last Admin: 12/19/17 09:47 Dose: 190 mg Polyethylene Glycol (Miralax) 17 gm PO DAILY [facility] Last Admin: 12/19/17 11:14 Dose: Not Given Potassium Chloride (K-Dur 20 Meq Tablet) 20 meq PO WM [facility] Last Admin: 12/19/17 17:28 Dose: 20 meq Pyridostigmine Spangle (Mestinon) 30 mg PO 1400,1700,2000 [facility] Last Admin: 12/19/17 21:16 Dose: 30 mg Subjective: Patient seen and chart reviewed. Case discussed with treatment team. On interview, patient is more pleasant with me than on our previous interaction. She fell this morning and has a hematoma over the right eye. She continues to perseverate on somatic concerns and needing an insulin pump to regulate her blood sugar. Per family, there were reasons other than suicidality that insulin pump was removed - primarily confusion and patient not being able to manage pump inappropriately. She reports feeling quite guilty for 's suicide and how difficult this is. She agrees that she needs assistance but focuses on wanting to clean out her house. Patient denies any SI, HI or AVH. Patient is resistant to taking antidepressants because she states her started to take Zoloft a short time before he committed suicide. She is willing to consider other medications options (such as a mood stabilizer) but states she would like more information on whichever medication is recommended. Discussed possibility of moving care facilities to be closer to [facility] in [place] and she is willing to consider this. Nursing staff report patient continues to be irritable and demanding, with illogical complaints at times. She became physically aggressive after fall this morning, swatting at staff. No apneic episodes in past 24 hours but patient did have emesis last night. Patient has been variably adherent with medications, even refusing meds for myasthenia gravis and BP at times. Patient slept 4.75 hours overnight. VSS.. Patient's appetite is fair. Psychotropic PRNs required in the past 24 hours: none. Discussed care and treatment options with patient's daughter/DPOA. She states that her mother does not even remember any conversations I have had with her about medications. Discussed risk of using mood stabilizers and exacerbating hypotension, including risk of . She feels patient's quality of life is poor and that care is currently unmanageable without medications. She agreed to trial of Abilify and is aware of the black box warning for use in dementia. Start Time: 14:20 Stop Time: 15:00 Care: >50% of this visit spent in counseling/coordination care. (discussion of care with DPOA) Mental Status Exam Vitals: Last Vital Signs Temp 98.8 F 12/20/17 08:00 Pulse 65 12/20/17 08:00 Resp 16 12/20/17 08:00 BP 158/95 H 12/20/17 08:00 Pulse Ox 95 12/20/17 08:00 Height: 1.52 m Weight: 45.5 kg - Mental Status Exam Muscle Strength/Tone: Weak Dressing: Casual Grooming: Fair Attitude: Uncooperative, Manipulative, Argumentative Motor Activity: Other (Limited movement due to myasthenia gravis but not necessarily retardation) Eye Contact: Good Speech: Normal Volume: Loud Rhythm: Appropriate Rhythm Sensory: Alert Orientation: Oriented X4 Mood: Depressed, Angry Affect: Sad Rate of Thoughts: Appropriate Rate Thought Organization: Organized Associations: Intact Abstract Reasoning: Poor abstract reasoning Thought Content: Helplessness, Paranoia, Somatic Concerns, Other (Angry at various members of staff for perceived mistakes, perseverates on this) Perception/Psychotic: Perception Normal Language: Naming Intact Fund of Knowledge: Kike aware current events Memory: Poor-recent Suicidal Ideation: Denies Homicidal Ideation: Denies Insight: Impaired Judgement: Impaired Impulse Control: Poor - Laboratory Result Diagrams: 12/18/17 06:53 12/21/17 06:59 Laboratory Results - last 24 hr 12/19/17 12/19/17 12/19/17 06:50 09:46 14:29 Glucometer 216 187 251 12/19/17 12/20/17 21:11 05:42 Glucometer 290 247 Assessment and Plan (1) Suicidal ideation Current visit: Yes Status: Acute (2) Mood disorder Problem details: unspecified Current visit: Yes Status: Acute (3) Myasthenia gravis Current visit: Yes Status: Acute (4) Diabetes mellitus, type II Current visit: Yes Status: Acute (5) Orthostatic hypotension Current visit: Yes Status: Acute After discussion of risks/benefits with DPOA, agreed to trial of Abilify to start 12/21 if patient will agree. After conversation with daughter, it is not believed patient has capacity to make her own medical decisions. Hospital Course Summary Disclaimer: The visit summary below is not to be considered part of the above Progress Note. Hospital Course: 12/16/17 Agree with admission to [facility] for psychiatric eval/tx with Dr. Matute. EKG performed following pt's syncopal episode. Poor tracing. Appears NSR with nl rate. Pt declining labs - will try to get later when pt is more cooperative. Nursing staff to check vitals q 15 min x 2 and call me with results. Will encourage pt to take her midodrin as directed Follow I&O's to assess fluid status as pt was previously dehydrated during her acute hospital stay. Fall precautions. Neuro checks to assess for any neuro changes r/t her fall this am. If any mental changes, will check head CT. UA showed + nitrites and UC showing early growth. Pt had cath at previous facility and UA their was neg for nitrites. Will wait to treat until culture is resulted. Hospitalist service will follow pt throughout her stay. Thanks for the consult. 12/17/17 Patient remains very uncooperative and fatalistic regarding her condition. She is not willing for me to change her medications currently- could consider increase in Midodrine if resting BP would tolerate. I D/W RN at length- main goal is to keep patient as safe as we can from falls. May need to use a lift to help when she is getting up. She does appear a bit dehydrated on labs- push oral fluids and add oral fluid/ electrolyte replacement (Gatorade, etc). Her blood sugar has been incredibly variable. Continue PRN insulin. Insulin pump stopped due to threats of suicide by the insulin. May consider consulting Endocrine due to the complex medical condition. Follow labs periodically. Consider adjusting meds to her home timing if that can be determined. D/W RN at length as well as with Dr. Patiño. 12/20/17 Psych: After discussion of risks/benefits with DPOA, agreed to trial of Abilify to start 12/21 if patient will agree. After conversation with daughter, it is not believed patient has capacity to make her own medical decisions.
[2017-12-20] MEDS: INSULIN DETEMIR 100unit/ml INJECTION SQ SCH (09:57)
[2017-12-20] MEDS ORDERED: ACETAMINOPHEN 325 MG TABLET PO PRN (09:58)
[2017-12-20] MEDS: PANTOPRAZOLE 20 MG TABLET PO SCH (12:11)
[2017-12-20] MEDS: CLOPIDOGREL 75 MG TABLET PO SCH ×2 (12:12→14:29)
[2017-12-20] MEDS: LACTOBACILLUS (15B cfu) CAPSULE PO SCH ×2 (12:12→14:30)
[2017-12-20] MEDS: PHENAZOPYRIDINE 95 MG TABLET PO SCH ×2 (12:12→14:30)
[2017-12-20] MEDS: POLYETHYL GLYCOL 3350 17gm PACKET PO SCH (12:12)
[2017-12-20] MEDS: FLUDROCORTISONE 0.1 MG TABLET PO SCH ×2 (12:12→14:30)
[2017-12-20] MEDS: MIDODRINE 5 MG TABLET PO SCH ×3 (13:59→19:52)
[2017-12-20] MEDS: PYRIDOSTIGMINE 60 MG TABLET PO SCH ×3 (13:59→19:52)
[2017-12-20] MEDS: ATORVASTATIN 10 MG TABLET PO SCH ×2 (19:53→21:12)
[2017-12-20] MEDS: INSULIN ASPART 100unit/ml INJECTION SQ SCH (21:20)
[2017-12-21] MEDS ORDERED: INSULIN REGULAR, HUMAN 100 UNIT/ML INJECTION SQ ONE (06:45)
[2017-12-21] MEDS: PHENAZOPYRIDINE 95 MG TABLET PO SCH (08:56)
[2017-12-21] MEDS: FLUDROCORTISONE 0.1 MG TABLET PO SCH (08:56)
[2017-12-21] MEDS: CLOPIDOGREL 75 MG TABLET PO SCH (08:56)
[2017-12-21] MEDS: ONDANSETRON 4 MG TABLET PO PRN ×3 (08:57→23:25)
[2017-12-21] MEDS: LACTOBACILLUS (15B cfu) CAPSULE PO SCH (08:57)
[2017-12-21] MEDS: POLYETHYL GLYCOL 3350 17gm PACKET PO SCH (08:58)
[2017-12-21] MEDS: INSULIN DETEMIR 100unit/ml INJECTION SQ SCH (08:59)
--- NOTE | 2017-12-21 09:18 | Neuropsych Progress Note ---
[facility] Subjective Date: 12/21/17 - Sujective/Severity of Illness Medications: Acetaminophen (Tylenol) 325 - 650 mg PO Q5H PRN PRN Reason: Discomfort Last Admin: 12/20/17 10:06 Dose: 650 mg Atorvastatin Calcium (Lipitor) 10 mg PO HS [facility] Last Admin: 12/20/17 21:12 Dose: Not Given Clopidogrel Bisulfate (Plavix) 75 mg PO DAILY [facility] Last Admin: 12/21/17 08:56 Dose: 75 mg Dextrose (D50%W) 25 ml IVP PRN PRN PRN Reason: Hypoglycemia Doxycycline Hyclate (Vibramycin) 100 mg PO BIDWM [facility] Stop: 12/25/17 23:59 Last Admin: 12/21/17 08:56 Dose: 100 mg Fludrocortisone Acetate (Florinef) 0.1 mg PO DAILY [facility] Last Admin: 12/21/17 08:56 Dose: 0.1 mg Haloperidol (Haldol) 0.5 mg PO Q6H PRN PRN Reason: Extreme agitation Haloperidol Lactate (Haldol) 0.5 mg IM Q6H PRN PRN Reason: Extreme agitation Insulin Aspart (Novolog) 6 unit SQ O [facility] Last Admin: 12/20/17 21:20 Dose: 6 unit Insulin Aspart (Novolog) 2 - 8 unit SQ SS PRN; Protocol PRN Reason: Hyperglycemia Last Admin: 12/20/17 18:42 Dose: 5 unit Insulin Detemir (Levemir) 10 unit SQ DAILY [facility] Last Admin: 12/21/17 08:59 Dose: 10 unit Lactobacillus Acidophilus (Culturelle) 1 cap PO DAILY [facility] Last Admin: 12/21/17 08:57 Dose: 1 cap Lorazepam (Ativan) 0.5 mg PO Q6H PRN PRN Reason: Extreme agitation Lorazepam (Ativan Inj) 0.5 mg IM Q6H PRN PRN Reason: Extreme agitation Midodrine (Proamatine) 5 mg PO 1400,1700,2000 [facility] Last Admin: 12/20/17 19:52 Dose: 5 mg Ondansetron HCl (Zofran Po) 4 mg PO Q6H PRN PRN Reason: Nausea &/or vomiting Last Admin: 12/21/17 08:57 Dose: 4 mg Pantoprazole Sodium (Protonix) 20 mg PO 0700 [facility] Last Admin: 12/20/17 12:11 Dose: Not Given Phenazopyridine HCl (Pyridium Eq) 190 mg PO DAILY [facility] Last Admin: 12/21/17 08:56 Dose: 190 mg Polyethylene Glycol (Miralax) 17 gm PO DAILY [facility] Last Admin: 12/21/17 08:58 Dose: Not Given Potassium Chloride (K-Dur 20 Meq Tablet) 20 meq PO WM [facility] Last Admin: 12/21/17 08:57 Dose: 20 meq Pyridostigmine [place] (Mestinon) 30 mg PO 1400,1700,2000 [facility] Last Admin: 12/20/17 19:52 Dose: 30 mg Subjective: Patient seen and chart reviewed. Case discussed with treatment team. On interview, patient is more pleasant with me than on our previous interaction. She states that she feels "really bad, awful" (physically) and just wants to get out of here "and get her insulin pump back." She feels like her physical concerns are due to her blood sugar lability. However, patient essentially binged last evening and then refused to eat for a time today. Discussed with nursing staff setting limits on this as patient does not have cognitive capacity to regulate own diet. Patient denies any SI, HI or AVH. Patient is resistant to taking antidepressants because she states her started to take Zoloft a short time before he committed suicide. Discussed Abilify and patient is willing to try it; first dose to be given today. Discussed possibility of moving care facilities to be closer to [facility] in [place] and she is willing to consider this if they accept her. Nursing staff report patient continues to be demanding, with illogical complaints at times, though she is more cooperative than upon admission. No reports of aggression in the past 24 hours. Patient has been variably adherent with medications. Patient slept 5 hours overnight. VSS.. Patient's appetite is variable as above. Psychotropic PRNs required in the past 24 hours: none. Start Time: 13:20 Stop Time: 13:40 Mental Status Exam Vitals: Last Vital Signs Temp 98.4 F 12/20/17 23:14 Pulse 64 12/20/17 23:14 Resp 20 12/20/17 23:14 BP 200/97 H 12/20/17 23:14 Pulse Ox 94 12/20/17 23:14 Height: 1.52 m Weight: 45.5 kg - Mental Status Exam Muscle Strength/Tone: Weak Dressing: Casual Grooming: Fair Attitude: Manipulative, Argumentative Motor Activity: Other (Limited movement due to myasthenia gravis but not necessarily retardation) Eye Contact: Good Speech: Normal Volume: Loud Rhythm: Appropriate Rhythm Orientation: Oriented X4 Mood: Depressed, Angry Rate of Thoughts: Appropriate Rate Thought Organization: Perseverations (on insulin pump) Associations: Intact Abstract Reasoning: Poor abstract reasoning Thought Content: Helplessness, Paranoia, Somatic Concerns, Other (Angry at various members of staff for perceived mistakes, perseverates on this) Perception/Psychotic: Perception Normal Language: Naming Intact Fund of Knowledge: Kike aware current events Memory: Poor-recent Suicidal Ideation: Denies Homicidal Ideation: Denies Insight: Impaired Judgement: Impaired Impulse Control: Poor - Laboratory Result Diagrams: 12/18/17 06:53 12/21/17 06:59 Laboratory Results - last 24 hr 12/20/17 12/20/17 12/20/17 09:55 12:11 15:19 Turbidity Sodium Potassium Chloride Carbon Dioxide Anion Gap BUN Creatinine GFR Calculation BUN/Creatinine Ratio Glucose Glucometer 210 148 281 Calculated Osmolality Calcium Icterus Index Specimen Hemolysis 12/20/17 12/20/17 12/20/17 18:35 19:49 22:40 Turbidity Sodium Potassium Chloride Carbon Dioxide Anion Gap BUN Creatinine GFR Calculation BUN/Creatinine Ratio Glucose Glucometer 258 185 263 Calculated Osmolality Calcium Icterus Index Specimen Hemolysis 12/21/17 12/21/17 06:29 06:59 Turbidity < 20 Sodium 137 Potassium 4.6 Chloride 98 Carbon Dioxide 18 L Anion Gap 21 H BUN 31.0 H Creatinine 1.8 H GFR Calculation 28 BUN/Creatinine Ratio 17 Glucose 511 H Glucometer > 500 Calculated Osmolality 294 H Calcium 9.7 Icterus Index < 2 Specimen Hemolysis < 15 Assessment and Plan (1) Suicidal ideation Current visit: Yes Status: Resolved (2) Mood disorder Problem details: unspecified Current visit: Yes Status: Acute (3) Myasthenia gravis Current visit: Yes Status: Acute (4) Diabetes mellitus, type II Current visit: Yes Status: Acute (5) Orthostatic hypotension Current visit: Yes Status: Acute Start Abilify 1mg PO today. Risks and benefits discussed with daughter, who gave informed consent. Hospital Course Summary Disclaimer: The visit summary below is not to be considered part of the above Progress Note. Hospital Course: 5/5/18 Agree with admission to [facility] for psychiatric eval/tx with Dr. Matute. EKG performed following pt's syncopal episode. Poor tracing. Appears NSR with nl rate. Pt declining labs - will try to get later when pt is more cooperative. Nursing staff to check vitals q 15 min x 2 and call me with results. Will encourage pt to take her midodrin as directed Follow I&O's to assess fluid status as pt was previously dehydrated during her acute hospital stay. Fall precautions. Neuro checks to assess for any neuro changes r/t her fall this am. If any mental changes, will check head CT. UA showed + nitrites and UC showing early growth. Pt had cath at previous facility and UA their was neg for nitrites. Will wait to treat until culture is resulted. Hospitalist service will follow pt throughout her stay. Thanks for the consult. 12/17/17 Patient remains very uncooperative and fatalistic regarding her condition. She is not willing for me to change her medications currently- could consider increase in Midodrine if resting BP would tolerate. I D/W RN at length- main goal is to keep patient as safe as we can from falls. May need to use a lift to help when she is getting up. She does appear a bit dehydrated on labs- push oral fluids and add oral fluid/ electrolyte replacement (Gatorade, etc). Her blood sugar has been incredibly variable. Continue PRN insulin. Insulin pump stopped due to threats of suicide by the insulin. May consider consulting Endocrine due to the complex medical condition. Follow labs periodically. Consider adjusting meds to her home timing if that can be determined. D/W RN at length as well as with Dr. Patiño. 12/20/17 Psych: After discussion of risks/benefits with DPOA, agreed to trial of Abilify to start 12/21 if patient will agree. After conversation with daughter, it is not believed patient has capacity to make her own medical decisions. 12/21/17 Psych: Start Abilify 1mg PO today. Risks and benefits discussed with daughter, who gave informed consent.
[2017-12-21] MEDS: PANTOPRAZOLE 20 MG TABLET PO SCH (09:53)
[2017-12-21] MEDS: INSULIN ASPART 100unit/ml INJECTION SQ PRN (10:53)
[2017-12-21] MEDS: ARIPiprazole 2 MG TABLET PO SCH (13:48)
[2017-12-21] MEDS: MIDODRINE 5 MG TABLET PO SCH ×3 (13:51→20:33)
[2017-12-21] MEDS: PYRIDOSTIGMINE 60 MG TABLET PO SCH ×3 (13:51→20:33)
[2017-12-21] MEDS: ATORVASTATIN 10 MG TABLET PO SCH (20:33)
[2017-12-21] MEDS: INSULIN ASPART 100unit/ml INJECTION SQ SCH (20:34)
[2017-12-22] MEDS: INSULIN ASPART 100unit/ml INJECTION SQ PRN ×2 (03:47→20:22)
--- NOTE | 2017-12-22 08:47 | Neuropsych Progress Note ---
[facility] Subjective Date: 12/22/17 - Sujective/Severity of Illness Medications: Acetaminophen (Tylenol) 325 - 650 mg PO Q5H PRN PRN Reason: Discomfort Last Admin: 12/20/17 10:06 Dose: 650 mg Aripiprazole (Abilify 2 Mg) 1 mg PO DAILY REPLACED BY [facility] Last Admin: 12/21/17 13:48 Dose: 1 mg Atorvastatin Calcium (Lipitor) 10 mg PO HS REPLACED BY [facility] Last Admin: 12/21/17 20:33 Dose: 10 mg Clopidogrel Bisulfate (Plavix) 75 mg PO DAILY REPLACED BY [facility] Last Admin: 12/21/17 08:56 Dose: 75 mg Dextrose (D50%W) 25 ml IVP PRN PRN PRN Reason: Hypoglycemia Doxycycline Hyclate (Vibramycin) 100 mg PO BIDWM REPLACED BY [facility] Stop: 12/25/17 23:59 Last Admin: 12/21/17 17:25 Dose: 100 mg Fludrocortisone Acetate (Florinef) 0.1 mg PO DAILY REPLACED BY [facility] Last Admin: 12/21/17 08:56 Dose: 0.1 mg Haloperidol (Haldol) 0.5 mg PO Q6H PRN PRN Reason: Extreme agitation Haloperidol Lactate (Haldol) 0.5 mg IM Q6H PRN PRN Reason: Extreme agitation Insulin Aspart (Novolog) 6 unit SQ O REPLACED BY [facility] Last Admin: 12/21/17 20:34 Dose: 6 unit Insulin Aspart (Novolog) 2 - 8 unit SQ SS PRN; Protocol PRN Reason: Hyperglycemia Last Admin: 12/22/17 03:47 Dose: 5 unit Insulin Detemir (Levemir) 10 unit SQ DAILY REPLACED BY [facility] Last Admin: 12/21/17 08:59 Dose: 10 unit Lactobacillus Acidophilus (Culturelle) 1 cap PO DAILY REPLACED BY [facility] Last Admin: 12/21/17 08:57 Dose: 1 cap Lorazepam (Ativan) 0.5 mg PO Q6H PRN PRN Reason: Extreme agitation Lorazepam (Ativan Inj) 0.5 mg IM Q6H PRN PRN Reason: Extreme agitation Midodrine (Proamatine) 5 mg PO 1400,1700,2000 REPLACED BY [facility] Last Admin: 12/21/17 20:33 Dose: 5 mg Ondansetron HCl (Zofran Po) 4 mg PO Q6H PRN PRN Reason: Nausea &/or vomiting Last Admin: 12/21/17 23:25 Dose: 4 mg Pantoprazole Sodium (Protonix) 20 mg PO 0700 REPLACED BY [facility] Last Admin: 12/21/17 09:53 Dose: 20 mg Phenazopyridine HCl (Pyridium Eq) 190 mg PO DAILY REPLACED BY [facility] Last Admin: 12/21/17 08:56 Dose: 190 mg Polyethylene Glycol (Miralax) 17 gm PO DAILY REPLACED BY [facility] Last Admin: 12/21/17 08:58 Dose: Not Given Potassium Chloride (K-Dur 20 Meq Tablet) 20 meq PO WM REPLACED BY [facility] Last Admin: 12/21/17 17:26 Dose: 20 meq Pyridostigmine [place] (Mestinon) 30 mg PO 1400,1700,2000 REPLACED BY [facility] Last Admin: 12/21/17 20:33 Dose: 30 mg Subjective: Patient seen and chart reviewed. Case discussed with treatment team. On interview, patient is overall pleasant with me though quite ruminative. She states that her mood is "down" and "she feels so sick all the time." She is observed gagging throughout the interview but does not produce any actual emesis. Patient had a dose of Abilify 1mg yesterday and today. She has had 1 syncopal episode each day so will need to continue to monitor. Patient perseverates on insulin pump throughout interview. She reportedly ate 1/3 bowl cereal for breakfast and no lunch. Patient will then complain about her BS being low but refuse to eat. I recommended to her that better attempts be made at controlling BS via diet changes - for example, diabetic diet limiting binges and ensuring regular PO intake. I suspecte improved PO intake may also help regulate autonomic dysfunction. Patient denies any SI, HI or AVH. Discussed possibility of moving care facilities to be closer to [facility] in [place] and she is willing to go if they accept her. Nursing staff report patient has been more cooperative overall with no significant behaviors in past 24 hours. Patient slept 7 hours overnight. VSS outside of hypotensive episodes. Psychotropic PRNs required in the past 24 hours: none. Start Time: 13:20 Stop Time: 13:40 Mental Status Exam Vitals: Last Vital Signs Temp 98.3 F 12/21/17 19:44 Pulse 61 12/21/17 23:30 Resp 18 12/21/17 19:44 BP 180/100 H 12/21/17 23:30 Pulse Ox 95 12/21/17 23:30 Height: 1.52 m Weight: 42.8 kg - Mental Status Exam Muscle Strength/Tone: Weak Dressing: Casual Grooming: Fair Attitude: Manipulative Motor Activity: Other (Limited movement due to myasthenia gravis but not necessarily retardation) Eye Contact: Good Speech: Normal Volume: Loud Rhythm: Appropriate Rhythm Orientation: Oriented X4 Mood: Depressed, Angry Affect: Sad Rate of Thoughts: Appropriate Rate Thought Organization: Perseverations (on insulin pump) Associations: Intact Abstract Reasoning: Poor abstract reasoning Thought Content: Helplessness, Somatic Concerns, Other (Angry at various members of staff for perceived mistakes, perseverates on this) Perception/Psychotic: Perception Normal Language: Naming Intact Fund of Knowledge: Kike aware current events Memory: Poor-recent Suicidal Ideation: Denies Homicidal Ideation: Denies Insight: Impaired Judgement: Impaired Impulse Control: Poor (though improved from previous) - Laboratory Result Diagrams: 12/18/17 06:53 12/21/17 06:59 Laboratory Results - last 24 hr 12/21/17 12/21/17 12/21/17 09:34 14:09 15:36 Glucometer 317 87 86 12/21/17 12/21/17 12/21/17 17:30 20:26 23:16 Glucometer 245 318 152 12/22/17 12/22/17 12/22/17 01:24 03:33 05:25 Glucometer 197 270 194 Assessment and Plan (1) Suicidal ideation Current visit: Yes Status: Resolved (2) Mood disorder Problem details: unspecified R/O Bipolar disorder Current visit: Yes Status: Acute (3) Myasthenia gravis Current visit: Yes Status: Acute (4) Diabetes mellitus, type II Current visit: Yes Status: Acute (5) Orthostatic hypotension Current visit: Yes Status: Acute Continue current care; monitoring for hypotensive episodes and considering whether to increase Abilify. Patient has been much less irritable since stopping Ritalin and she has been improving night-time sleep. Hospital Course Summary Disclaimer: The visit summary below is not to be considered part of the above Progress Note. Hospital Course: 12/16/17 Agree with admission to [facility] for psychiatric eval/tx with Dr. Matute. EKG performed following pt's syncopal episode. Poor tracing. Appears NSR with nl rate. Pt declining labs - will try to get later when pt is more cooperative. Nursing staff to check vitals q 15 min x 2 and call me with results. Will encourage pt to take her midodrin as directed Follow I&O's to assess fluid status as pt was previously dehydrated during her acute hospital stay. Fall precautions. Neuro checks to assess for any neuro changes r/t her fall this am. If any mental changes, will check head CT. UA showed + nitrites and UC showing early growth. Pt had cath at previous facility and UA their was neg for nitrites. Will wait to treat until culture is resulted. Hospitalist service will follow pt throughout her stay. Thanks for the consult. 12/17/17 Patient remains very uncooperative and fatalistic regarding her condition. She is not willing for me to change her medications currently- could consider increase in Midodrine if resting BP would tolerate. I D/W RN at length- main goal is to keep patient as safe as we can from falls. May need to use a lift to help when she is getting up. She does appear a bit dehydrated on labs- push oral fluids and add oral fluid/ electrolyte replacement (Gatorade, etc). Her blood sugar has been incredibly variable. Continue PRN insulin. Insulin pump stopped due to threats of suicide by the insulin. May consider consulting Endocrine due to the complex medical condition. Follow labs periodically. Consider adjusting meds to her home timing if that can be determined. D/W RN at length as well as with Dr. Patiño. 12/20/17 Psych: After discussion of risks/benefits with DPOA, agreed to trial of Abilify to start 12/21 if patient will agree. After conversation with daughter, it is not believed patient has capacity to make her own medical decisions. 12/21/17 Psych: Start Abilify 1mg PO today. Risks and benefits discussed with daughter, who gave informed consent. 12/22/17 Psych: Continue current care; monitoring for hypotensive episodes and considering whether to increase Abilify. Patient has been much less irritable since stopping Ritalin and she has been improving night-time sleep.
[2017-12-22] MEDS: PANTOPRAZOLE 20 MG TABLET PO SCH (10:38)
[2017-12-22] MEDS: CLOPIDOGREL 75 MG TABLET PO SCH (10:39)
[2017-12-22] MEDS: ARIPiprazole 2 MG TABLET PO SCH (10:39)
[2017-12-22] MEDS: FLUDROCORTISONE 0.1 MG TABLET PO SCH (10:40)
[2017-12-22] MEDS: INSULIN DETEMIR 100unit/ml INJECTION SQ SCH (10:40)
[2017-12-22] MEDS: POLYETHYL GLYCOL 3350 17gm PACKET PO SCH ×2 (10:41→19:47)
[2017-12-22] MEDS: LACTOBACILLUS (15B cfu) CAPSULE PO SCH (10:41)
[2017-12-22] MEDS: PHENAZOPYRIDINE 95 MG TABLET PO SCH (10:43)
[2017-12-22] MEDS: ONDANSETRON 4 MG TABLET PO PRN ×2 (13:21→19:48)
[2017-12-22] MEDS: MIDODRINE 5 MG TABLET PO SCH ×3 (14:22→19:47)
[2017-12-22] MEDS: PYRIDOSTIGMINE 60 MG TABLET PO SCH ×3 (14:22→19:46)
[2017-12-22] MEDS: ATORVASTATIN 10 MG TABLET PO SCH (19:47)
[2017-12-23] MEDS: ATORVASTATIN 10 MG TABLET PO SCH ×2 (00:20→20:10)
[2017-12-23] MEDS: INSULIN ASPART 100unit/ml INJECTION SQ SCH ×2 (00:20→22:24)
[2017-12-23] MEDS: ONDANSETRON 4 MG TABLET PO PRN ×3 (01:54→17:09)
[2017-12-23] MEDS: PANTOPRAZOLE 20 MG TABLET PO SCH ×2 (05:42→09:28)
[2017-12-23] MEDS: ARIPiprazole 2 MG TABLET PO SCH ×2 (09:28→12:17)
[2017-12-23] MEDS: CLOPIDOGREL 75 MG TABLET PO SCH (09:29)
[2017-12-23] MEDS: FLUDROCORTISONE 0.1 MG TABLET PO SCH (09:29)
[2017-12-23] MEDS: LACTOBACILLUS (15B cfu) CAPSULE PO SCH ×2 (09:30→12:18)
[2017-12-23] MEDS: POLYETHYL GLYCOL 3350 17gm PACKET PO SCH (09:30)
[2017-12-23] MEDS: INSULIN DETEMIR 100unit/ml INJECTION SQ SCH (09:30)
--- NOTE | 2017-12-23 11:27 | Neuropsych Progress Note ---
[facility] Subjective Date: 12/23/17 - Sujective/Severity of Illness Medications: Acetaminophen (Tylenol) 325 - 650 mg PO Q5H PRN PRN Reason: Discomfort Last Admin: 12/20/17 10:06 Dose: 650 mg Aripiprazole (Abilify 2 Mg) 1 mg PO DAILY [facility] Last Admin: 12/23/17 09:28 Dose: 1 mg Atorvastatin Calcium (Lipitor) 10 mg PO HS [facility] Last Admin: 12/23/17 00:20 Dose: Not Given Clopidogrel Bisulfate (Plavix) 75 mg PO DAILY [facility] Last Admin: 12/23/17 09:29 Dose: 75 mg Dextrose (D50%W) 25 ml IVP PRN PRN PRN Reason: Hypoglycemia Doxycycline Hyclate (Vibramycin) 100 mg PO BIDWM [facility] Stop: 12/25/17 23:59 Last Admin: 12/23/17 09:28 Dose: 100 mg Fludrocortisone Acetate (Florinef) 0.1 mg PO DAILY [facility] Last Admin: 12/23/17 09:29 Dose: 0.1 mg Haloperidol (Haldol) 0.5 mg PO Q6H PRN PRN Reason: Extreme agitation Haloperidol Lactate (Haldol) 0.5 mg IM Q6H PRN PRN Reason: Extreme agitation Insulin Aspart (Novolog) 6 unit SQ O [facility] Last Admin: 12/23/17 00:20 Dose: Not Given Insulin Aspart (Novolog) 2 - 8 unit SQ SS PRN; Protocol PRN Reason: Hyperglycemia Last Admin: 12/22/17 20:22 Dose: 3 unit Insulin Detemir (Levemir) 10 unit SQ DAILY [facility] Last Admin: 12/23/17 09:30 Dose: 10 unit Lactobacillus Acidophilus (Culturelle) 1 cap PO DAILY [facility] Last Admin: 12/23/17 09:30 Dose: 1 cap Lorazepam (Ativan) 0.5 mg PO Q6H PRN PRN Reason: Extreme agitation Lorazepam (Ativan Inj) 0.5 mg IM Q6H PRN PRN Reason: Extreme agitation Midodrine (Proamatine) 5 mg PO 1400,1700,2000 [facility] Last Admin: 12/22/17 19:47 Dose: 5 mg Ondansetron HCl (Zofran Po) 4 mg PO Q6H PRN PRN Reason: Nausea &/or vomiting Last Admin: 12/23/17 10:14 Dose: 4 mg Pantoprazole Sodium (Protonix) 20 mg PO 0700 [facility] Last Admin: 12/23/17 09:28 Dose: Not Given Polyethylene Glycol (Miralax) 17 gm PO DAILY [facility] Last Admin: 12/23/17 09:30 Dose: 17 gm Potassium Chloride (K-Dur 20 Meq Tablet) 20 meq PO WM [facility] Last Admin: 12/23/17 09:28 Dose: Not Given Pyridostigmine [place] (Mestinon) 30 mg PO 1400,1700,2000 [facility] Last Admin: 12/22/17 19:46 Dose: 30 mg Subjective: Patient seen and chart reviewed. Nursing reports pt is doing a little better. Slept 4.5 hours. Continues to have a poor appetite. On face to face the pt is irritable. She states she is nauseated and is requesting Zofran before she eats. She remains depressed. Denies any S/I. Tolerating meds. Had a conversation with patients daughters. They state they plan to move pt to a memory care facility in [place] at [place]. Start Time: 09:45 Stop Time: 10:00 Mental Status Exam Vitals: Last Vital Signs Temp 97.7 F 12/23/17 08:00 Pulse 58 L 12/23/17 08:00 Resp 14 12/23/17 08:00 BP 140/80 H 12/23/17 08:00 Pulse Ox 95 12/23/17 08:00 Height: 1.52 m Weight: 44.1 kg - Mental Status Exam Muscle Strength/Tone: Weak Dressing: Casual Grooming: Fair Attitude: Manipulative Motor Activity: Other (Limited movement due to myasthenia gravis but not necessarily retardation) Eye Contact: Good Speech: Normal Volume: Loud Rhythm: Appropriate Rhythm Orientation: Oriented X4 Mood: Depressed, Angry Rate of Thoughts: Appropriate Rate Thought Organization: Perseverations (on insulin pump) Associations: Intact Abstract Reasoning: Poor abstract reasoning Thought Content: Helplessness, Somatic Concerns, Other (Angry at various members of staff for perceived mistakes, perseverates on this) Perception/Psychotic: Perception Normal Language: Naming Intact Fund of Knowledge: Kike aware current events Memory: Poor-recent Suicidal Ideation: Denies Homicidal Ideation: Denies Insight: Impaired Judgement: Impaired Impulse Control: Poor (though improved from previous) - Laboratory Result Diagrams: 12/18/17 06:53 12/21/17 06:59 Laboratory Results - last 24 hr 12/22/17 12/22/17 12/22/17 10:17 14:03 20:18 Glucometer 245 139 203 12/22/17 12/23/17 12/23/17 23:13 05:09 10:50 Glucometer 114 239 244 Assessment and Plan (1) Suicidal ideation Current visit: Yes Status: Resolved (2) Mood disorder Problem details: unspecified R/O Bipolar disorder Current visit: Yes Status: Acute (3) Myasthenia gravis Current visit: Yes Status: Acute (4) Diabetes mellitus, type II Current visit: Yes Status: Acute (5) Orthostatic hypotension Current visit: Yes Status: Acute Hospital Course Summary Disclaimer: The visit summary below is not to be considered part of the above Progress Note. Hospital Course: 12/16/17 Agree with admission to [facility] for psychiatric eval/tx with Dr. Matute. EKG performed following pt's syncopal episode. Poor tracing. Appears NSR with nl rate. Pt declining labs - will try to get later when pt is more cooperative. Nursing staff to check vitals q 15 min x 2 and call me with results. Will encourage pt to take her midodrin as directed Follow I&O's to assess fluid status as pt was previously dehydrated during her acute hospital stay. Fall precautions. Neuro checks to assess for any neuro changes r/t her fall this am. If any mental changes, will check head CT. UA showed + nitrites and UC showing early growth. Pt had cath at previous facility and UA their was neg for nitrites. Will wait to treat until culture is resulted. Hospitalist service will follow pt throughout her stay. Thanks for the consult. 12/17/17 Patient remains very uncooperative and fatalistic regarding her condition. She is not willing for me to change her medications currently- could consider increase in Midodrine if resting BP would tolerate. I D/W RN at length- main goal is to keep patient as safe as we can from falls. May need to use a lift to help when she is getting up. She does appear a bit dehydrated on labs- push oral fluids and add oral fluid/ electrolyte replacement (Gatorade, etc). Her blood sugar has been incredibly variable. Continue PRN insulin. Insulin pump stopped due to threats of suicide by the insulin. May consider consulting Endocrine due to the complex medical condition. Follow labs periodically. Consider adjusting meds to her home timing if that can be determined. D/W RN at length as well as with Dr. Patiño. 12/20/17 Psych: After discussion of risks/benefits with DPOA, agreed to trial of Abilify to start 5/10 if patient will agree. After conversation with daughter, it is not believed patient has capacity to make her own medical decisions. 12/21/17 Psych: Start Abilify 1mg PO today. Risks and benefits discussed with daughter, who gave informed consent. 12/22/17 Psych: Continue current care; monitoring for hypotensive episodes and considering whether to increase Abilify. Patient has been much less irritable since stopping Ritalin and she has been improving night-time sleep. 12/23/17 Psych- Continue current care
[2017-12-23] MEDS ORDERED: SCOPOLAMINE 1mg/3 days PATCH (Eq. 1.5 Patch) TD SCH (14:00)
[2017-12-23] MEDS: INSULIN ASPART 100unit/ml INJECTION SQ PRN (14:03)
[2017-12-23] MEDS: PYRIDOSTIGMINE 60 MG TABLET PO SCH ×3 (14:07→20:06)
[2017-12-23] MEDS: MIDODRINE 5 MG TABLET PO SCH ×3 (14:07→20:06)
--- NOTE | 2017-12-23 16:15 | Progress Note ---
- Date 12/23/17 Subjective: Aleisha was resting in bed, feeling miserable. She is very nauseated. She states that her mouth is very dry, but each time she takes a sip of water it doesn't go down right. She has chronic nausea, and the med that works best to control it is PO Zofran. She has allergies to Reglan and Phenergan. She's never tried a scopolamine patch before. She gets orthostatic with any change in position. She' s learned that she needs to move quickly if she needs to get to the bathroom so she doesn't pass out shelter there. She denies SOA or chest pain. She also states that her nausea worsens when her sugar is >300. Objective Vital signs: Temperature 98.6 F 12/23/17 15:50 Pulse Rate 57 L 12/23/17 15:50 Respiratory Rate 14 12/23/17 15:50 Blood Pressure 130/75 12/23/17 15:50 Pulse Oximetry 97 12/23/17 15:50 Height/Weight/BMI: Height 1.52 m Weight 44.1 kg Body Mass Index 20.9 - Constitutional Present: mild distress, thin - Routine HEENT Exam Head: Absent: atraumatic Eye: Present: periorbital ecchymosis (B/L) - Routine Respiratory Exam Present: CTA bilaterally - Routine Cardiovascular Exam Present: RRR, S1, S2 - Routine Abdominal Exam Present: soft, non distended. Absent: normoactive bowel sounds Comments: Pt asked me not to palpate her abdomen - Routine Extremities Exam Present: no edema, pulses intact - Routine Skin Exam Present: intact, dry, warm - Routine Neurological Exam Present: alert, oriented X3, normal speech - Routine Psychiatric Exam Present: cooperative. Absent: normal affect (depressed) Results - Labs CBC & Chem 7: 12/18/17 06:53 12/21/17 06:59 Microbiology Results: Microbiology 12/15/17 12:51 Urine, Voided (Cc/notcc) Urine Culture - Final Coag negative Staphylococcus Assessment and Plan (1) Orthostatic hypotension Current visit: Yes Status: Acute Assessment and Plan: Assessment: Major depressive d/o UTI Hypertension Autonomic neuropathy-on Midodrin, Florinef, Ritalin, and Mestinon Diabetes-chronic insulin therapy (A1C 8.4 on 12/12/17) Chronic renal disease Peripheral neuropathy Gastroparesis Hyperlipidemia History of CVA Coronary artery disease 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 Persistent hyperglycemia; she used to use an insulin pump but this has been taken away d/t threats that she would use it for suicide. Will start NovoLOG 3 units before each meal; continue Levemir 10 units daily. D/W Dr. Patiño - pt is on Mestinon for orthostatic hypotension, not myasthenia gravis Repeat BMP in am of 12/25 - f/u on renal function GI Prophylaxis: Protonix Resuscitation Status: Full Code - Physician Narrative Narrative: Date: 12/23/17 Time: 1609 Hospital Course Summary Disclaimer: The visit summary below is not to be considered part of the above Progress Note. Hospital Course: 12/16/17 Agree with admission to [facility] for psychiatric eval/tx with Dr. Matute. EKG performed following pt's syncopal episode. Poor tracing. Appears NSR with nl rate. Pt declining labs - will try to get later when pt is more cooperative. Nursing staff to check vitals q 15 min x 2 and call me with results. Will encourage pt to take her midodrin as directed Follow I&O's to assess fluid status as pt was previously dehydrated during her acute hospital stay. Fall precautions. Neuro checks to assess for any neuro changes r/t her fall this am. If any mental changes, will check head CT. UA showed + nitrites and UC showing early growth. Pt had cath at previous facility and UA their was neg for nitrites. Will wait to treat until culture is resulted. Hospitalist service will follow pt throughout her stay. Thanks for the consult. 12/17/17 Patient remains very uncooperative and fatalistic regarding her condition. She is not willing for me to change her medications currently- could consider increase in Midodrine if resting BP would tolerate. I D/W RN at length- main goal is to keep patient as safe as we can from falls. May need to use a lift to help when she is getting up. She does appear a bit dehydrated on labs- push oral fluids and add oral fluid/ electrolyte replacement (Gatorade, etc). Her blood sugar has been incredibly variable. Continue PRN insulin. Insulin pump stopped due to threats of suicide by the insulin. May consider consulting Endocrine due to the complex medical condition. Follow labs periodically. Consider adjusting meds to her home timing if that can be determined. D/W RN at length as well as with Dr. Patiño. 12/20/17 Psych: After discussion of risks/benefits with DPOA, agreed to trial of Abilify to start 12/21 if patient will agree. After conversation with daughter, it is not believed patient has capacity to make her own medical decisions. 12/21/17 Psych: Start Abilify 1mg PO today. Risks and benefits discussed with daughter, who gave informed consent. 12/22/17 Psych: Continue current care; monitoring for hypotensive episodes and considering whether to increase Abilify. Patient has been much less irritable since stopping Ritalin and she has been improving night-time sleep. 12/23/17 Psych- Continue current care 12/23 Increasing nausea - trial scopolamine patch. 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 Persistent hyperglycemia; she used to use an insulin pump but this has been taken away d/t threats that she would use it for suicide. Will start NovoLOG 3 units before each meal; continue Levemir 10 units daily. D/W Dr. Patiño - pt is on Mestinon for orthostatic hypotension, not myasthenia gravis Repeat BMP in am of 12/25 - f/u on renal function
[2017-12-23] MEDS: ONDANSETRON 8 MG TABLET PO PRN (17:17)
[2017-12-23] MEDS ORDERED: INSULIN ASPART 100unit/ml INJECTION SQ SCH (17:30)
[2017-12-24] MEDS: INSULIN ASPART 100unit/ml INJECTION SQ PRN ×3 (05:56→20:53)
[2017-12-24] MEDS: PANTOPRAZOLE 20 MG TABLET PO SCH (06:02)
[2017-12-24] MEDS: ONDANSETRON 4 MG TABLET PO PRN (08:52)
[2017-12-24] MEDS ORDERED: NS 1,000 ML IV SCH (09:15)
[2017-12-24] MEDS: LACTOBACILLUS (15B cfu) CAPSULE PO SCH (09:57)
[2017-12-24] MEDS: POLYETHYL GLYCOL 3350 17gm PACKET PO SCH (09:57)
[2017-12-24] MEDS: FLUDROCORTISONE 0.1 MG TABLET PO SCH (09:57)
[2017-12-24] MEDS: CLOPIDOGREL 75 MG TABLET PO SCH (09:57)
[2017-12-24] MEDS: ARIPiprazole 2 MG TABLET PO SCH (09:57)
[2017-12-24] MEDS: ONDANSETRON 8 MG TABLET PO PRN (11:35)
--- NOTE | 2017-12-24 11:42 | Neuropsych Progress Note ---
[facility] Subjective Date: 12/24/17 - Sujective/Severity of Illness Medications: Acetaminophen (Tylenol) 325 - 650 mg PO Q5H PRN PRN Reason: Discomfort Last Admin: 12/20/17 10:06 Dose: 650 mg Aripiprazole (Abilify 2 Mg) 1 mg PO DAILY [facility] Last Admin: 12/24/17 09:57 Dose: Not Given Atorvastatin Calcium (Lipitor) 10 mg PO HS [facility] Last Admin: 12/23/17 20:10 Dose: 10 mg Clopidogrel Bisulfate (Plavix) 75 mg PO DAILY [facility] Last Admin: 12/24/17 09:57 Dose: Not Given Dextrose (D50%W) 25 ml IVP PRN PRN PRN Reason: Hypoglycemia Fludrocortisone Acetate (Florinef) 0.1 mg PO DAILY [facility] Last Admin: 12/24/17 09:57 Dose: Not Given Granisetron HCl (Kytril) 1 mg IVP BID PRN PRN Reason: Nausea &/or vomiting Haloperidol (Haldol) 0.5 mg PO Q6H PRN PRN Reason: Extreme agitation Haloperidol Lactate (Haldol) 0.5 mg IM Q6H PRN PRN Reason: Extreme agitation Sodium Chloride (Normal Saline) 1,000 mls @ 125 mls/hr IV .Q8H [facility] Insulin Aspart (Novolog) 6 unit SQ O [facility] Last Admin: 12/23/17 22:24 Dose: 6 unit Insulin Aspart (Novolog) 2 - 8 unit SQ SS PRN; Protocol PRN Reason: Hyperglycemia Last Admin: 12/24/17 05:56 Dose: 3 unit Insulin Aspart (Novolog) 3 unit SQ 08,12 [facility] Insulin Detemir (Levemir) 10 unit SQ DAILY [facility] Last Admin: 12/23/17 09:30 Dose: 10 unit Lactobacillus Acidophilus (Culturelle) 1 cap PO DAILY [facility] Last Admin: 12/24/17 09:57 Dose: Not Given Lorazepam (Ativan) 0.5 mg PO Q6H PRN PRN Reason: Extreme agitation Lorazepam (Ativan Inj) 0.5 mg IM Q6H PRN PRN Reason: Extreme agitation Midodrine (Proamatine) 5 mg PO 1400,1700,2000 [facility] Last Admin: 12/23/17 20:06 Dose: 5 mg Ondansetron HCl (Zofran Po) 8 mg PO Q8H PRN Last Admin: 12/24/17 11:35 Dose: 8 mg Pantoprazole Sodium (Protonix) 20 mg PO 0700 [facility] Last Admin: 12/24/17 06:02 Dose: 20 mg Polyethylene Glycol (Miralax) 17 gm PO DAILY [facility] Last Admin: 12/24/17 09:57 Dose: Not Given Potassium Chloride (K-Dur 20 Meq Tablet) 20 meq PO WM [facility] Last Admin: 12/24/17 09:57 Dose: Not Given Pyridostigmine Reed (Mestinon) 30 mg PO 1400,1700,2000 [facility] Last Admin: 12/23/17 20:06 Dose: 30 mg Scopolamine (Transderm-Scop Patch Removal) 1 removal TD Q3D [facility] Stop: 12/26/17 14:16 Subjective: Patient seen and chart reviewed. Nursing reports pt has been dealing with alot of nausea and has been vomiting. Has not been able to keep food down. Poor sleep. On face to face the pt is irritable. She states she does not feels well physically. She initially refused IV fluids but did tell this designer/writer she would be willing to start them. Denies S/I Start Time: 10:15 Stop Time: 10:30 Mental Status Exam Vitals: Last Vital Signs Temp 98.0 F 12/24/17 08:00 Pulse 61 12/24/17 08:00 Resp 16 12/24/17 08:00 BP 106/66 12/24/17 08:00 Pulse Ox 95 12/24/17 08:00 Height: 1.52 m Weight: 43.2 kg - Mental Status Exam Muscle Strength/Tone: Weak Dressing: Casual Grooming: Fair Attitude: Manipulative Motor Activity: Other (Limited movement due to myasthenia gravis but not necessarily retardation) Eye Contact: Good Speech: Normal Volume: Loud Rhythm: Appropriate Rhythm Orientation: Oriented X4 Mood: Depressed, Angry Rate of Thoughts: Appropriate Rate Thought Organization: Perseverations (on insulin pump) Associations: Intact Abstract Reasoning: Poor abstract reasoning Thought Content: Helplessness, Somatic Concerns, Other (Angry at various members of staff for perceived mistakes, perseverates on this) Perception/Psychotic: Perception Normal Language: Naming Intact Fund of Knowledge: Kike aware current events Memory: Poor-recent Suicidal Ideation: Denies Homicidal Ideation: Denies Insight: Impaired Judgement: Impaired Impulse Control: Poor (though improved from previous) - Laboratory Result Diagrams: 12/18/17 06:53 12/21/17 06:59 Laboratory Results - last 24 hr 12/23/17 12/23/17 12/23/17 13:56 19:42 23:24 Glucometer 289 111 59 12/24/17 12/24/17 12/24/17 00:08 01:04 05:50 Glucometer 50 95 243 12/24/17 10:08 Glucometer 207 Assessment and Plan (1) Suicidal ideation Current visit: Yes Status: Resolved (2) Mood disorder Problem details: unspecified R/O Bipolar disorder Current visit: Yes Status: Acute (3) Myasthenia gravis Current visit: Yes Status: Acute (4) Diabetes mellitus, type II Current visit: Yes Status: Acute (5) Orthostatic hypotension Current visit: Yes Status: Acute Hospital Course Summary Disclaimer: The visit summary below is not to be considered part of the above Progress Note. Hospital Course: 12/16/17 Agree with admission to [facility] for psychiatric eval/tx with Dr. Matute. EKG performed following pt's syncopal episode. Poor tracing. Appears NSR with nl rate. Pt declining labs - will try to get later when pt is more cooperative. Nursing staff to check vitals q 15 min x 2 and call me with results. Will encourage pt to take her midodrin as directed Follow I&O's to assess fluid status as pt was previously dehydrated during her acute hospital stay. Fall precautions. Neuro checks to assess for any neuro changes r/t her fall this am. If any mental changes, will check head CT. UA showed + nitrites and UC showing early growth. Pt had cath at previous facility and UA their was neg for nitrites. Will wait to treat until culture is resulted. Hospitalist service will follow pt throughout her stay. Thanks for the consult. 12/17/17 Patient remains very uncooperative and fatalistic regarding her condition. She is not willing for me to change her medications currently- could consider increase in Midodrine if resting BP would tolerate. I D/W RN at length- main goal is to keep patient as safe as we can from falls. May need to use a lift to help when she is getting up. She does appear a bit dehydrated on labs- push oral fluids and add oral fluid/ electrolyte replacement (Gatorade, etc). Her blood sugar has been incredibly variable. Continue PRN insulin. Insulin pump stopped due to threats of suicide by the insulin. May consider consulting Endocrine due to the complex medical condition. Follow labs periodically. Consider adjusting meds to her home timing if that can be determined. D/W RN at length as well as with Dr. Patiño. 12/20/17 Psych: After discussion of risks/benefits with DPOA, agreed to trial of Abilify to start 10 if patient will agree. After conversation with daughter, it is not believed patient has capacity to make her own medical decisions. 12/21/17 Psych: Start Abilify 1mg PO today. Risks and benefits discussed with daughter, who gave informed consent. 12/22/17 Psych: Continue current care; monitoring for hypotensive episodes and considering whether to increase Abilify. Patient has been much less irritable since stopping Ritalin and she has been improving night-time sleep. 12/23/17 Psych- Continue current care 12/23 Increasing nausea - trial scopolamine patch. 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 Persistent hyperglycemia; she used to use an insulin pump but this has been taken away d/t threats that she would use it for suicide. Will start NovoLOG 3 units before each meal; continue Levemir 10 units daily. D/W Dr. Patiño - pt is on Mestinon for orthostatic hypotension, not myasthenia gravis Repeat BMP in am of 12/25 - f/u on renal function 12/24/17 Psych note- Continue current care
[2017-12-24] MEDS: INSULIN DETEMIR 100unit/ml INJECTION SQ SCH (12:23)
[2017-12-24] MEDS: GRANISETRON 1mg/ml INJECTION IVP PRN ×2 (12:27→19:50)
[2017-12-24] MEDS: INSULIN ASPART 100unit/ml INJECTION SQ SCH ×2 (13:30→21:50)
[2017-12-24] MEDS: MIDODRINE 5 MG TABLET PO SCH ×3 (16:41→20:03)
[2017-12-24] MEDS: PYRIDOSTIGMINE 60 MG TABLET PO SCH ×3 (16:41→20:02)
[2017-12-24] MEDS: ATORVASTATIN 10 MG TABLET PO SCH (20:03)
[2017-12-25] MEDS: INSULIN ASPART 100unit/ml INJECTION SQ PRN ×3 (00:37→16:55)
[2017-12-25] MEDS: PANTOPRAZOLE 20 MG TABLET PO SCH (06:23)
[2017-12-25] MEDS: GRANISETRON 1mg/ml INJECTION IVP PRN (09:13)
[2017-12-25] MEDS: ARIPiprazole 2 MG TABLET PO SCH (11:31)
[2017-12-25] MEDS: FLUDROCORTISONE 0.1 MG TABLET PO SCH (11:32)
[2017-12-25] MEDS: LACTOBACILLUS (15B cfu) CAPSULE PO SCH (11:32)
[2017-12-25] MEDS: CLOPIDOGREL 75 MG TABLET PO SCH (11:32)
[2017-12-25] MEDS: POLYETHYL GLYCOL 3350 17gm PACKET PO SCH (11:33)
[2017-12-25] MEDS: INSULIN DETEMIR 100unit/ml INJECTION SQ SCH (11:33)
[2017-12-25] MEDS: INSULIN ASPART 100unit/ml INJECTION SQ SCH ×4 (11:34→23:33)
[2017-12-25] MEDS: GAVISCON SUSPENSION 15ml PO PRN (13:55)
--- NOTE | 2017-12-25 14:01 | Neuropsych Progress Note ---
[facility] Subjective Date: 12/25/17 - Sujective/Severity of Illness Medications: Acetaminophen (Tylenol) 325 - 650 mg PO Q5H PRN PRN Reason: Discomfort Last Admin: 12/20/17 10:06 Dose: 650 mg Al Hydroxide/Mg Carbonate (Mag Carb/Al Hydrox/Alginic Ac) 15 ml PO PC PRN Last Admin: 12/25/17 13:55 Dose: 15 ml Aripiprazole (Abilify 2 Mg) 1 mg PO DAILY [facility] Last Admin: 12/25/17 11:31 Dose: 1 mg Atorvastatin Calcium (Lipitor) 10 mg PO HS [facility] Last Admin: 12/24/17 20:03 Dose: 10 mg Clopidogrel Bisulfate (Plavix) 75 mg PO DAILY [facility] Last Admin: 12/25/17 11:32 Dose: 75 mg Dextrose (D50%W) 25 ml IVP PRN PRN PRN Reason: Hypoglycemia Fludrocortisone Acetate (Florinef) 0.1 mg PO DAILY [facility] Last Admin: 12/25/17 11:32 Dose: 0.1 mg Granisetron HCl (Kytril) 1 mg IVP BID PRN PRN Reason: Nausea &/or vomiting Last Admin: 12/25/17 09:13 Dose: 1 mg Haloperidol (Haldol) 0.5 mg PO Q6H PRN PRN Reason: Extreme agitation Haloperidol Lactate (Haldol) 0.5 mg IM Q6H PRN PRN Reason: Extreme agitation Insulin Aspart (Novolog) 6 unit SQ O [facility] Last Admin: 12/24/17 21:50 Dose: Not Given Insulin Aspart (Novolog) 2 - 8 unit SQ SS PRN; Protocol PRN Reason: Hyperglycemia Last Admin: 12/25/17 06:21 Dose: 5 unit Insulin Aspart (Novolog) 3 unit SQ 08,12 [facility] Last Admin: 12/25/17 11:34 Dose: Not Given Insulin Detemir (Levemir) 10 unit SQ DAILY [facility] Last Admin: 12/25/17 11:33 Dose: 10 unit Lactobacillus Acidophilus (Culturelle) 1 cap PO DAILY [facility] Last Admin: 12/25/17 11:32 Dose: 1 cap Lorazepam (Ativan) 0.5 mg PO Q6H PRN PRN Reason: Extreme agitation Lorazepam (Ativan Inj) 0.5 mg IM Q6H PRN PRN Reason: Extreme agitation Midodrine (Proamatine) 5 mg PO 1400,1700,1999 [facility] Last Admin: 12/24/17 20:03 Dose: 5 mg Ondansetron HCl (Zofran Po) 8 mg PO Q8H PRN Last Admin: 12/24/17 11:35 Dose: 8 mg Pantoprazole Sodium (Protonix) 20 mg PO 0700 [facility] Last Admin: 12/25/17 06:23 Dose: 20 mg Polyethylene Glycol (Miralax) 17 gm PO DAILY [facility] Last Admin: 12/25/17 11:33 Dose: 17 gm Potassium Chloride (K-Dur 20 Meq Tablet) 20 meq PO WM [facility] Last Admin: 12/25/17 13:56 Dose: 20 meq Pyridostigmine Baker (Mestinon) 30 mg PO 1400,1699,1999 [facility] Last Admin: 12/24/17 20:02 Dose: 30 mg Scopolamine (Transderm-Scop Patch Removal) 1 removal TD Q3D [facility] Stop: 12/26/17 14:16 Subjective: Patient seen and chart reviewed. Case discussed with treatment team. On interview, patient complains frequently but is more accepting of answers and fairly redirectable without escalating or becoming agitated. She continues to focus on wanting insulin pump and wanting to discharge from hospital. Patient denies any SI, HI or AVH. She continues to complain of emesis though cause is unknown and does not seem to be a large amount. We are continuing to encourage patient to modify diet to help control BS (eating regularly and adhering to diabetic diet, not bingeing, etc.) Nursing staff report patient has been more redirectable and more adherent with medications. Patient slept only 3 hours overnight. VSS. Psychotropic PRNs required in the past 24 hours: none. Hospitalist giving patient IV fluids today which seems to stabilize BPs more. Start Time: 13:20 Stop Time: 13:40 Mental Status Exam Vitals: Last Vital Signs Temp 98.2 F 12/25/17 08:00 Pulse 60 12/25/17 08:00 Resp 16 12/25/17 08:00 BP 147/87 H 12/25/17 08:00 Pulse Ox 96 12/25/17 08:00 Height: 1.52 m Weight: 44.8 kg - Mental Status Exam Muscle Strength/Tone: Weak Dressing: Casual Grooming: Fair Attitude: Manipulative Motor Activity: Other (Limited movement due to myasthenia gravis but not necessarily retardation) Eye Contact: Good Speech: Normal Volume: Loud Rhythm: Appropriate Rhythm Sensory: Alert Orientation: Oriented X4 Mood: Irritable (mild) Affect: Sad Rate of Thoughts: Appropriate Rate Thought Organization: Perseverations (on insulin pump), Confused (at times) Associations: Intact Abstract Reasoning: Poor abstract reasoning Thought Content: Helplessness, Somatic Concerns, Other Perception/Psychotic: Perception Normal Language: Naming Intact Fund of Knowledge: Other (did well on [facility] though cannot remember discussions day-to-day) Memory: Poor-recent Suicidal Ideation: Denies Homicidal Ideation: Denies Insight: Impaired Judgement: Impaired Impulse Control: Fair (improved from admission) - Laboratory Result Diagrams: 12/25/17 07:16 12/25/17 07:16 Laboratory Results - last 24 hr 12/24/17 12/24/17 12/24/17 11:52 14:09 16:51 WBC RBC Hgb Hct MCV MCH MCHC RDW Std Deviation Plt Count MPV Immature Gran % (Auto) Neut % (Auto) Lymph % (Auto) [place] % (Auto) Eos % (Auto) Baso % (Auto) Neut # (Auto) Lymph # (Auto) [place] # (Auto) Eos # (Auto) Baso # (Auto) Abs Immat Gran (auto) Turbidity Sodium Potassium Chloride Carbon Dioxide Anion Gap BUN Creatinine GFR Calculation BUN/Creatinine Ratio Glucose Glucometer 297 362 192 Calculated Osmolality Calcium Icterus Index Specimen Hemolysis 12/25/17 12/25/17 12/25/17 00:34 06:18 07:16 WBC RBC Hgb Hct MCV MCH MCHC RDW Std Deviation Plt Count MPV Immature Gran % (Auto) Neut % (Auto) Lymph % (Auto) [place] % (Auto) Eos % (Auto) Baso % (Auto) Neut # (Auto) Lymph # (Auto) [place] # (Auto) Eos # (Auto) Baso # (Auto) Abs Immat Gran (auto) Turbidity < 20 Sodium 137 Potassium 4.0 Chloride 102 Carbon Dioxide 25 Anion Gap 10 BUN 29.0 H Creatinine 1.5 H GFR Calculation 35 BUN/Creatinine Ratio 19 Glucose 222 H Glucometer 232 250 Calculated Osmolality 277 Calcium 9.0 Icterus Index < 2 Specimen Hemolysis < 15 12/25/17 12/25/17 12/25/17 07:16 08:25 11:09 WBC 10.4 RBC 3.68 L Hgb 10.8 L Hct 33.7 L MCV 91.6 MCH 29.3 MCHC 32.0 RDW Std Deviation 42.7 Plt Count 192 MPV 10.1 Immature Gran % (Auto) 0.3 Neut % (Auto) 70.4 H Lymph % (Auto) 20.8 L [place] % (Auto) 5.3 Eos % (Auto) 2.9 Baso % (Auto) 0.3 Neut # (Auto) 7.4 Lymph # (Auto) 2.2 [place] # (Auto) 0.6 Eos # (Auto) 0.3 Baso # (Auto) 0.0 Abs Immat Gran (auto) 0.03 Turbidity Sodium Potassium Chloride Carbon Dioxide Anion Gap BUN Creatinine GFR Calculation BUN/Creatinine Ratio Glucose Glucometer 156 238 Calculated Osmolality Calcium Icterus Index Specimen Hemolysis Assessment and Plan (1) Suicidal ideation Current visit: Yes Status: Resolved (2) Mood disorder Problem details: unspecified R/O Bipolar disorder Current visit: Yes Status: Acute (3) Myasthenia gravis Current visit: Yes Status: Acute (4) Diabetes mellitus, type II Current visit: Yes Status: Acute (5) Orthostatic hypotension Current visit: Yes Status: Acute Continue current care and will contact facility in [place] as to whether they will accept patient. Hospital Course Summary Disclaimer: The visit summary below is not to be considered part of the above Progress Note. Hospital Course: 12/16/17 Agree with admission to [facility] for [facility] eval/tx with Dr. Matute. EKG performed following pt's syncopal episode. Poor tracing. Appears NSR with nl rate. Pt declining labs - will try to get later when pt is more cooperative. Nursing staff to check vitals q 15 min x 2 and call me with results. Will encourage pt to take her midodrin as directed Follow I&O's to assess fluid status as pt was previously dehydrated during her acute hospital stay. Fall precautions. Neuro checks to assess for any neuro changes r/t her fall this am. If any mental changes, will check head CT. UA showed + nitrites and UC showing early growth. Pt had cath at previous facility and UA their was neg for nitrites. Will wait to treat until culture is resulted. Hospitalist service will follow pt throughout her stay. Thanks for the consult. 12/17/17 Patient remains very uncooperative and fatalistic regarding her condition. She is not willing for me to change her medications currently- could consider increase in Midodrine if resting BP would tolerate. I D/W RN at length- main goal is to keep patient as safe as we can from falls. May need to use a lift to help when she is getting up. She does appear a bit dehydrated on labs- push oral fluids and add oral fluid/ electrolyte replacement (Gatorade, etc). Her blood sugar has been incredibly variable. Continue PRN insulin. Insulin pump stopped due to threats of suicide by the insulin. May consider consulting Endocrine due to the complex medical condition. Follow labs periodically. Consider adjusting meds to her home timing if that can be determined. D/W RN at length as well as with Dr. Patiño. 12/20/17 Psych: After discussion of risks/benefits with DPOA, agreed to trial of Abilify to start 12/21 if patient will agree. After conversation with daughter, it is not believed patient has capacity to make her own medical decisions. 12/21/17 Psych: Start Abilify 1mg PO today. Risks and benefits discussed with daughter, who gave informed consent. 12/22/17 Psych: Continue current care; monitoring for hypotensive episodes and considering whether to increase Abilify. Patient has been much less irritable since stopping Ritalin and she has been improving night-time sleep. 12/23/17 Psych- Continue current care 12/23 Increasing nausea - trial scopolamine patch. 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 [employer] UTI - DC doxycycline, which could be contributing to nausea. Persistent hyperglycemia; she used to use an insulin pump but this has been taken away d/t threats that she would use it for suicide. Will start NovoLOG 3 units before each meal; continue Levemir 10 units daily. D/W Dr. Patiño - pt is on Mestinon for orthostatic hypotension, not myasthenia gravis Repeat BMP in am of 12/25 - f/u on renal function 12/24/17 Psych note- Continue current care 12/25/17 Psych: Continue current care and will contact facility in [place] as to whether they will accept patient.
[2017-12-25] MEDS ORDERED: PROCHLORPERAZINE 10 MG/2 ML INJECTION IVP PRN (14:32)
[2017-12-25] MEDS: PYRIDOSTIGMINE 60 MG TABLET PO SCH ×3 (15:43→20:22)
[2017-12-25] MEDS: MIDODRINE 5 MG TABLET PO SCH ×3 (15:44→20:22)
[2017-12-25] MEDS: ATORVASTATIN 10 MG TABLET PO SCH (20:22)
[2017-12-26] MEDS: INSULIN ASPART 100unit/ml INJECTION SQ PRN ×3 (02:49→20:33)
[2017-12-26] MEDS: PANTOPRAZOLE 20 MG TABLET PO SCH (06:22)
[2017-12-26] MEDS: INSULIN ASPART 100unit/ml INJECTION SQ SCH ×3 (08:48→22:50)
[2017-12-26] MEDS: ARIPiprazole 2 MG TABLET PO SCH (08:49)
[2017-12-26] MEDS: CLOPIDOGREL 75 MG TABLET PO SCH (08:50)
[2017-12-26] MEDS: FLUDROCORTISONE 0.1 MG TABLET PO SCH (08:50)
[2017-12-26] MEDS: LACTOBACILLUS (15B cfu) CAPSULE PO SCH (08:50)
[2017-12-26] MEDS: POLYETHYL GLYCOL 3350 17gm PACKET PO SCH (08:57)
[2017-12-26] MEDS: INSULIN DETEMIR 100unit/ml INJECTION SQ SCH ×2 (09:04→20:32)
--- NOTE | 2017-12-26 13:21 | Neuropsych Progress Note ---
[facility] Subjective Date: 12/26/17 - Sujective/Severity of Illness Medications: Acetaminophen (Tylenol) 325 - 650 mg PO Q5H PRN PRN Reason: Discomfort Last Admin: 12/20/17 10:06 Dose: 650 mg Al Hydroxide/Mg Carbonate (Mag Carb/Al Hydrox/Alginic Ac) 15 ml PO PC PRN Last Admin: 12/25/17 13:55 Dose: 15 ml Aripiprazole (Abilify 2 Mg) 1 mg PO DAILY [facility] Last Admin: 12/26/17 08:49 Dose: 1 mg Atorvastatin Calcium (Lipitor) 10 mg PO HS [facility] Last Admin: 12/25/17 20:22 Dose: 10 mg Clopidogrel Bisulfate (Plavix) 75 mg PO DAILY [facility] Last Admin: 12/26/17 08:50 Dose: 75 mg Dextrose (D50%W) 25 ml IVP PRN PRN PRN Reason: Hypoglycemia Fludrocortisone Acetate (Florinef) 0.1 mg PO DAILY [facility] Last Admin: 12/26/17 08:50 Dose: 0.1 mg Granisetron HCl (Kytril) 1 mg IVP BID PRN PRN Reason: Nausea &/or vomiting Last Admin: 12/25/17 09:13 Dose: 1 mg Haloperidol (Haldol) 0.5 mg PO Q6H PRN PRN Reason: Extreme agitation Haloperidol Lactate (Haldol) 0.5 mg IM Q6H PRN PRN Reason: Extreme agitation Insulin Aspart (Novolog) 6 unit SQ O [facility] Last Admin: 12/25/17 23:33 Dose: Not Given Insulin Aspart (Novolog) 2 - 8 unit SQ SS PRN; Protocol PRN Reason: Hyperglycemia Last Admin: 12/26/17 06:23 Dose: 5 unit Insulin Aspart (Novolog) 3 unit SQ 08,12 [facility] Last Admin: 12/26/17 12:09 Dose: 3 unit Insulin Detemir (Levemir) 10 unit SQ DAILY [facility] Last Admin: 12/26/17 09:04 Dose: 10 unit Lactobacillus Acidophilus (Culturelle) 1 cap PO DAILY [facility] Last Admin: 12/26/17 08:50 Dose: 1 cap Lorazepam (Ativan) 0.5 mg PO Q6H PRN PRN Reason: Extreme agitation Lorazepam (Ativan Inj) 0.5 mg IM Q6H PRN PRN Reason: Extreme agitation Midodrine (Proamatine) 5 mg PO 1400,1700,2000 [facility] Last Admin: 12/25/17 20:22 Dose: 5 mg Ondansetron HCl (Zofran Po) 8 mg PO Q8H PRN Last Admin: 12/24/17 11:35 Dose: 8 mg Pantoprazole Sodium (Protonix) 20 mg PO 0700 [facility] Last Admin: 12/26/17 06:22 Dose: 20 mg Polyethylene Glycol (Miralax) 17 gm PO DAILY [facility] Last Admin: 12/26/17 08:57 Dose: 17 gm Potassium Chloride (K-Dur 20 Meq Tablet) 20 meq PO WM [facility] Last Admin: 12/26/17 12:09 Dose: Not Given Prochlorperazine Edisylate (Compazine Iv) 10 mg IVP Q6H PRN PRN Reason: Nausea &/or vomiting Pyridostigmine [place] (Mestinon) 30 mg PO 1400,1700,2000 [facility] Last Admin: 12/25/17 20:22 Dose: 30 mg Scopolamine (Transderm-Scop Patch Removal) 1 removal TD Q3D [facility] Stop: 12/26/17 14:16 Subjective: Patient seen and chart reviewed. Case discussed with treatment team. On interview, patient complains frequently but is more accepting of answers and fairly redirectable without escalating or becoming agitated. She continues to focus on wanting insulin pump and wanting to discharge from hospital. Patient denies any SI, HI or AVH. She feels her mind is "perfectly fine" and does not have any insights into cognitive deficits. We are continuing to encourage patient to modify diet to help control BS ( eating regularly and adhering to diabetic diet, not bingeing, etc.) Nursing staff report patient has been more redirectable and more adherent with medications overall. Patient slept 4 hours overnight. VSS. Psychotropic PRNs required in the past 24 hours: none. Start Time: 09:20 Stop Time: 09:40 Mental Status Exam Vitals: Last Vital Signs Temp 98.4 F 12/26/17 08:00 Pulse 56 L 12/26/17 08:00 Resp 16 12/26/17 08:00 BP 110/72 12/26/17 08:00 Pulse Ox 93 12/26/17 08:00 Height: 1.52 m Weight: 44.8 kg - Mental Status Exam Muscle Strength/Tone: Weak Dressing: Casual Grooming: Fair Attitude: Manipulative Motor Activity: Other (Limited movement due to myasthenia gravis but not necessarily retardation) Eye Contact: Good Speech: Normal Volume: Loud Rhythm: Appropriate Rhythm Orientation: Oriented X4 Mood: Irritable (mild) Affect: Sad Rate of Thoughts: Appropriate Rate Thought Organization: Perseverations (on insulin pump), Confused (at times) Associations: Intact Abstract Reasoning: Poor abstract reasoning Thought Content: Helplessness, Somatic Concerns, Other Perception/Psychotic: Perception Normal Language: Naming Intact Fund of Knowledge: Other (did well on SLUMS though cannot remember discussions day-to-day) Memory: Poor-recent Suicidal Ideation: Denies Homicidal Ideation: Denies Insight: Impaired Judgement: Impaired Impulse Control: Fair (improved from admission) - Laboratory Result Diagrams: 12/25/17 07:16 12/25/17 07:16 Laboratory Results - last 24 hr 12/25/17 12/25/17 12/26/17 16:35 20:05 02:38 Glucometer 387 305 413 12/26/17 07:26 Glucometer 210 Assessment and Plan (1) Suicidal ideation Current visit: Yes Status: Resolved (2) Mood disorder Problem details: unspecified R/O Bipolar disorder Current visit: Yes Status: Acute (3) Myasthenia gravis Current visit: Yes Status: Acute (4) Diabetes mellitus, type II Current visit: Yes Status: Acute (5) Orthostatic hypotension Current visit: Yes Status: Acute Continue current care and continue attempts at managing BS, encouraging patient participation with diet modification. Facility to assess on . Hospital Course Summary Disclaimer: The visit summary below is not to be considered part of the above Progress Note. Hospital Course: 12/16/17 Agree with admission to [facility] for psychiatric eval/tx with Dr. Matute. EKG performed following pt's syncopal episode. Poor tracing. Appears NSR with nl rate. Pt declining labs - will try to get later when pt is more cooperative. Nursing staff to check vitals q 15 min x 2 and call me with results. Will encourage pt to take her midodrin as directed Follow I&O's to assess fluid status as pt was previously dehydrated during her acute hospital stay. Fall precautions. Neuro checks to assess for any neuro changes r/t her fall this am. If any mental changes, will check head CT. UA showed + nitrites and UC showing early growth. Pt had cath at previous facility and UA their was neg for nitrites. Will wait to treat until culture is resulted. Hospitalist service will follow pt throughout her stay. Thanks for the consult. 12/17/17 Patient remains very uncooperative and fatalistic regarding her condition. She is not willing for me to change her medications currently- could consider increase in Midodrine if resting BP would tolerate. I D/W RN at length- main goal is to keep patient as safe as we can from falls. May need to use a lift to help when she is getting up. She does appear a bit dehydrated on labs- push oral fluids and add oral fluid/ electrolyte replacement (Gatorade, etc). Her blood sugar has been incredibly variable. Continue PRN insulin. Insulin pump stopped due to threats of suicide by the insulin. May consider consulting Endocrine due to the complex medical condition. Follow labs periodically. Consider adjusting meds to her home timing if that can be determined. D/W RN at length as well as with Dr. Patiño. 12/20/17 Psych: After discussion of risks/benefits with DPOA, agreed to trial of Abilify to start 12/21 if patient will agree. After conversation with daughter, it is not believed patient has capacity to make her own medical decisions. 12/21/17 Psych: Start Abilify 1mg PO today. Risks and benefits discussed with daughter, who gave informed consent. 12/22/17 Psych: Continue current care; monitoring for hypotensive episodes and considering whether to increase Abilify. Patient has been much less irritable since stopping Ritalin and she has been improving night-time sleep. 12/23/17 Psych- Continue current care 12/23 Increasing nausea - trial scopolamine patch. 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 Persistent hyperglycemia; she used to use an insulin pump but this has been taken away d/t threats that she would use it for suicide. Will start NovoLOG 3 units before each meal; continue Levemir 10 units daily. D/W Dr. Patiño - pt is on Mestinon for orthostatic hypotension, not myasthenia gravis Repeat BMP in am of 12/25 - f/u on renal function 12/24/17 Psych note- Continue current care 12/25/17 Psych: Continue current care and will contact facility in [place] as to whether they will accept patient. 12/26/17 Psych: Continue current care and continue attempts at managing BS, encouraging patient participation with diet modification. Facility to assess on .
--- NOTE | 2017-12-26 13:38 | Progress Note ---
- Date 12/26/17 Subjective: Patient is seen today lying in her bed eating lunch. When I walked into to her room she was in no distress. Appetite holds her right was and why I was there, she started acting like she was in severe pain. She states she feels like she has a "hole in my chest and stomach." She states that when she swallows food it hurts from the time she swallows it until it finally "goes down." She complains of vomiting, but denies nausea. She states the Kytril is not helping her symptoms, although she says she is taking the Kytril for pain, whereas it is actually used for nausea. I discussed her case with Dr. Matute, and there is some concern that she may be inducing vomiting to throw her blood sugars off as she is wanting to have her insulin pump back. Objective Vital signs: Temperature 98.4 F 12/26/17 08:00 Pulse Rate 56 L 12/26/17 08:00 Respiratory Rate 16 12/26/17 08:00 Blood Pressure 110/72 12/26/17 08:00 Pulse Oximetry 93 12/26/17 08:00 Height/Weight/BMI: Height 1.52 m Weight 44.8 kg Body Mass Index 20.9 - Constitutional Present: no acute distress, well nourished, well developed - Routine HEENT Exam Head: Present: normocephalic, facial swelling (and ecchymosis surrounding bilateral eyes ) - Routine Respiratory Exam Present: CTA bilaterally. Absent: wheezes - Routine Cardiovascular Exam Present: RRR - Routine Abdominal Exam Present: soft, normoactive bowel sounds, tenderness (epigastric), non distended - Routine Extremities Exam Present: no edema, normal capillary refill - Routine Skin Exam Present: dry, warm - Routine Neurological Exam Present: alert - Routine Lymphatic Exam Lymphatic: Absent: adenopathy - Routine Psychiatric Exam Present: cooperative Results - Labs CBC & Chem 7: 12/25/17 07:16 12/25/17 07:16 Microbiology Results: Microbiology 12/15/17 12:51 Urine, Voided (Cc/notcc) Urine Culture - Final Coag negative Staphylococcus Assessment and Plan (1) Orthostatic hypotension Current visit: Yes Status: Acute Assessment and Plan: Assessment: Major depressive d/o UTI Hypertension Autonomic neuropathy-on Midodrin, Florinef, Ritalin, and Mestinon Diabetes-chronic insulin therapy (A1C 8.4 on 12/12/17) Chronic renal disease Peripheral neuropathy Gastroparesis Hyperlipidemia History of CVA Coronary artery disease 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 With her recurrent vomiting, she likely has a component of esophagitis. Discussed patient with Dr. Matute. Pt will not be going back on the insulin pump as cognitively she is unable to manage this. Will increase her Levemir to BID and continue to use short-acting before meal insulin and SSI as needed. - Physician Narrative Narrative: Date: 12/26/17 Time: 1326 Hospital Course Summary Disclaimer: The visit summary below is not to be considered part of the above Progress Note. Hospital Course: 12/16/17 Agree with admission to [facility] for psychiatric eval/tx with Dr. Matute. EKG performed following pt's syncopal episode. Poor tracing. Appears NSR with nl rate. Pt declining labs - will try to get later when pt is more cooperative. Nursing staff to check vitals q 15 min x 2 and call me with results. Will encourage pt to take her midodrin as directed Follow I&O's to assess fluid status as pt was previously dehydrated during her acute hospital stay. Fall precautions. Neuro checks to assess for any neuro changes r/t her fall this am. If any mental changes, will check head CT. UA showed + nitrites and UC showing early growth. Pt had cath at previous facility and UA their was neg for nitrites. Will wait to treat until culture is resulted. Hospitalist service will follow pt throughout her stay. Thanks for the consult. 12/17/17 Patient remains very uncooperative and fatalistic regarding her condition. She is not willing for me to change her medications currently- could consider increase in Midodrine if resting BP would tolerate. I D/W RN at length- main goal is to keep patient as safe as we can from falls. May need to use a lift to help when she is getting up. She does appear a bit dehydrated on labs- push oral fluids and add oral fluid/ electrolyte replacement (Gatorade, etc). Her blood sugar has been incredibly variable. Continue PRN insulin. Insulin pump stopped due to threats of suicide by the insulin. May consider consulting Endocrine due to the complex medical condition. Follow labs periodically. Consider adjusting meds to her home timing if that can be determined. D/W RN at length as well as with Dr. Patiño. 12/20/17 Psych: After discussion of risks/benefits with DPOA, agreed to trial of Abilify to start 10 if patient will agree. After conversation with daughter, it is not believed patient has capacity to make her own medical decisions. 12/21/17 Psych: Start Abilify 1mg PO today. Risks and benefits discussed with daughter, who gave informed consent. 12/22/17 Psych: Continue current care; monitoring for hypotensive episodes and considering whether to increase Abilify. Patient has been much less irritable since stopping Ritalin and she has been improving night-time sleep. 12/23/17 Psych- Continue current care 12/23 Increasing nausea - trial scopolamine patch. 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 Persistent hyperglycemia; she used to use an insulin pump but this has been taken away d/t threats that she would use it for suicide. Will start NovoLOG 3 units before each meal; continue Levemir 10 units daily. D/W Dr. Patiño - pt is on Mestinon for orthostatic hypotension, not myasthenia gravis Repeat BMP in am of 12/25 - f/u on renal function 12/24/17 Psych note- Continue current care 12/25/17 Psych: Continue current care and will contact facility in [place] as to whether they will accept patient. 12/26/17 Psych: Continue current care and continue attempts at managing BS, encouraging patient participation with diet modification. Facility to assess on . 12/26/17 - hospitalist Start Protonix IV BID and Carafate slurry ACHS for what sounds like esophageal pain. With her recurrent vomiting, she likely has a component of esophagitis. Discussed patient with Dr. Matute. Pt will not be going back on the insulin pump as cognitively she is unable to manage this. Will increase her Levemir to BID and continue to use short-acting before meal insulin and SSI as needed.
[2017-12-26] MEDS: MIDODRINE 5 MG TABLET PO SCH ×3 (14:01→20:20)
[2017-12-26] MEDS: PYRIDOSTIGMINE 60 MG TABLET PO SCH ×4 (14:01→21:17)
[2017-12-26] MEDS ORDERED: SCOPOLAMINE PATCH REMOVAL TD SCH (14:15)
[2017-12-26] MEDS: SUCRALFATE 1gm/10ml ORAL LIQUID PO SCH ×3 (17:34→21:30)
[2017-12-26] MEDS: ATORVASTATIN 10 MG TABLET PO SCH (20:20)
[2017-12-26] MEDS: PANTOPRAZOLE 40 MG INJECTION IVP SCH (20:33)
[2017-12-27] MEDS: SUCRALFATE 1gm/10ml ORAL LIQUID PO SCH ×5 (08:36→20:34)
[2017-12-27] MEDS: ARIPiprazole 2 MG TABLET PO SCH (08:37)
[2017-12-27] MEDS: FLUDROCORTISONE 0.1 MG TABLET PO SCH (08:38)
[2017-12-27] MEDS: CLOPIDOGREL 75 MG TABLET PO SCH (08:38)
[2017-12-27] MEDS: PANTOPRAZOLE 40 MG INJECTION IVP SCH (08:39)
[2017-12-27] MEDS: LACTOBACILLUS (15B cfu) CAPSULE PO SCH (08:39)
[2017-12-27] MEDS: POLYETHYL GLYCOL 3350 17gm PACKET PO SCH (08:39)
[2017-12-27] MEDS: INSULIN DETEMIR 100unit/ml INJECTION SQ SCH ×2 (08:46→20:33)
[2017-12-27] MEDS: INSULIN ASPART 100unit/ml INJECTION SQ SCH ×3 (08:47→22:27)
[2017-12-27] MEDS: GAVISCON SUSPENSION 15ml PO PRN (11:05)
[2017-12-27] MEDS: SYSTANE EYE DROPS 0.7ml EACH EYE SCH ×3 (13:58→20:34)
[2017-12-27] MEDS: MIDODRINE 5 MG TABLET PO SCH ×3 (13:58→20:33)
[2017-12-27] MEDS: PYRIDOSTIGMINE 60 MG TABLET PO SCH ×3 (13:59→20:31)
[2017-12-27] MEDS ORDERED: PANTOPRAZOLE 40 MG TABLET PO SCH (17:00)
[2017-12-27] MEDS: ATORVASTATIN 10 MG TABLET PO SCH (20:31)
[2017-12-28] MEDS: SUCRALFATE 1gm/10ml ORAL LIQUID PO SCH ×2 (08:15→11:47)
[2017-12-28] MEDS: LACTOBACILLUS (15B cfu) CAPSULE PO SCH ×2 (08:17→09:19)
[2017-12-28] MEDS: CLOPIDOGREL 75 MG TABLET PO SCH ×2 (08:17→09:19)
[2017-12-28] MEDS: FLUDROCORTISONE 0.1 MG TABLET PO SCH ×2 (08:17→09:19)
[2017-12-28] MEDS: ARIPiprazole 2 MG TABLET PO SCH ×2 (08:17→09:19)
[2017-12-28] MEDS: POLYETHYL GLYCOL 3350 17gm PACKET PO SCH (08:18)
[2017-12-28 08:21] VITALS: RESP 16
[2017-12-28] MEDS: GAVISCON SUSPENSION 15ml PO PRN ×2 (08:21→11:46)
[2017-12-28] MEDS: SYSTANE EYE DROPS 0.7ml EACH EYE SCH ×2 (08:22→14:01)
[2017-12-28] MEDS ORDERED: LORazepam 0.5 MG TABLET PO ONE ×2 (08:45→13:52)
[2017-12-28] MEDS: INSULIN ASPART 100unit/ml INJECTION SQ SCH ×2 (08:46→14:01)
[2017-12-28] MEDS: INSULIN DETEMIR 100unit/ml INJECTION SQ SCH (10:00)
[2017-12-28] MEDS: INSULIN ASPART 100unit/ml INJECTION SQ PRN ×2 (11:34→14:16)
--- NOTE | 2017-12-28 13:15 | Neuropsych Progress Note ---
[facility] Subjective Date: 12/28/17 - Sujective/Severity of Illness Medications: Acetaminophen (Tylenol) 325 - 650 mg PO Q5H PRN PRN Reason: Discomfort Last Admin: 12/20/17 10:06 Dose: 650 mg Al Hydroxide/Mg Carbonate (Mag Carb/Al Hydrox/Alginic Ac) 15 ml PO PC PRN Last Admin: 12/28/17 11:46 Dose: 15 ml Aripiprazole (Abilify 2 Mg) 1 mg PO DAILY [facility] Last Admin: 12/28/17 09:19 Dose: 1 mg Atorvastatin Calcium (Lipitor) 10 mg PO HS [facility] Last Admin: 12/27/17 20:31 Dose: 10 mg Clopidogrel Bisulfate (Plavix) 75 mg PO DAILY [facility] Last Admin: 12/28/17 09:19 Dose: 75 mg Dextrose (D50%W) 25 ml IVP PRN PRN PRN Reason: Hypoglycemia Fludrocortisone Acetate (Florinef) 0.1 mg PO DAILY [facility] Last Admin: 12/28/17 09:19 Dose: 0.1 mg Granisetron HCl (Kytril) 1 mg IVP BID PRN PRN Reason: Nausea &/or vomiting Last Admin: 12/25/17 09:13 Dose: 1 mg Haloperidol (Haldol) 0.5 mg PO Q6H PRN PRN Reason: Extreme agitation Haloperidol Lactate (Haldol) 0.5 mg IM Q6H PRN PRN Reason: Extreme agitation Insulin Aspart (Novolog) 6 unit SQ O [facility] Last Admin: 12/27/17 22:27 Dose: 6 unit Insulin Aspart (Novolog) 2 - 8 unit SQ SS PRN; Protocol PRN Reason: Hyperglycemia Last Admin: 12/28/17 11:34 Dose: 5 unit Insulin Aspart (Novolog) 3 unit SQ 08,12 [facility] Last Admin: 12/28/17 08:46 Dose: 3 unit Insulin Detemir (Levemir) 10 unit SQ BID [facility] Last Admin: 12/28/17 10:00 Dose: 10 unit Lactobacillus Acidophilus (Culturelle) 1 cap PO DAILY [facility] Last Admin: 12/28/17 09:19 Dose: 1 cap Lorazepam (Ativan) 0.5 mg PO Q6H PRN PRN Reason: Extreme agitation Lorazepam (Ativan Inj) 0.5 mg IM Q6H PRN PRN Reason: Extreme agitation Midodrine (Proamatine) 5 mg PO 1400,1700,2000 [facility] Last Admin: 12/27/17 20:33 Dose: 5 mg Ondansetron HCl (Zofran Po) 8 mg PO Q8H PRN Last Admin: 12/24/17 11:35 Dose: 8 mg Pantoprazole Sodium (Protonix Tab) 40 mg PO ACBID [facility] Polyethyl Glycol/Propylene Glycol (Systane Eye Drops) 1 drop EACH EYE QID [facility] Last Admin: 12/28/17 08:22 Dose: 1 drop Polyethylene Glycol (Miralax) 17 gm PO DAILY [facility] Last Admin: 12/28/17 08:18 Dose: 17 gm Potassium Chloride (K-Dur 20 Meq Tablet) 20 meq PO WM [facility] Last Admin: 12/28/17 11:47 Dose: Not Given Prochlorperazine Edisylate (Compazine Iv) 10 mg IVP Q6H PRN PRN Reason: Nausea &/or vomiting Pyridostigmine [place] (Mestinon) 30 mg PO 1400,1700,2000 [facility] Last Admin: 12/27/17 20:31 Dose: 30 mg Sucralfate (Carafate Slurry) 1 gm PO ACHS [facility] Last Admin: 12/28/17 11:47 Dose: Not Given Subjective: Patient seen and chart reviewed. Case discussed with treatment team. On interview, patient complains frequently but is more accepting of answers and fairly redirectable without escalating or becoming agitated. She does not ask about insulin pump but would like to discharge and is agreeable to going to facility in [place]. Patient denies any SI, HI or AVH. She does not have any insights into cognitive deficits. We are continuing to encourage patient to modify diet to help control BS ( eating regularly and adhering to diabetic diet, not bingeing, etc.) Nursing staff report patient has been more redirectable and more adherent with medications overall. Patient slept 4.25 hours overnight. VSS. Psychotropic PRNs required in the past 24 hours: none. Discussed care with sales representative groceries from facility as well as daughter/DPOA that psychotropic med use is limited given autonomic dysfunction; all questions answered to her satisfaction at this time. Start Time: 13:20 Stop Time: 13:40 Mental Status Exam Vitals: Last Vital Signs Temp 98.9 F 12/28/17 08:00 Pulse 64 12/28/17 08:00 Resp 16 12/28/17 08:00 BP 151/81 H 12/28/17 08:00 Pulse Ox 93 12/28/17 08:00 Height: 1.52 m Weight: 44.9 kg - Mental Status Exam Muscle Strength/Tone: Weak Dressing: Casual Grooming: Fair Attitude: Manipulative (improved from admission) Motor Activity: Other (decreased from normal due to myasthenia gravis) Eye Contact: Good Speech: Normal Volume: Loud Rhythm: Appropriate Rhythm Sensory: Alert Orientation: Oriented X4 Mood: Neutral Affect: Relaxed Rate of Thoughts: Appropriate Rate Thought Organization: Organized, Confused (at times) Associations: Intact (mostly), Illogical (at times) Abstract Reasoning: Poor abstract reasoning Thought Content: Helplessness, Somatic Concerns Perception/Psychotic: Perception Normal Language: Naming Intact Fund of Knowledge: Other (decreased SLUMS ; forgets conversations by next day) Memory: Poor-recent Suicidal Ideation: Denies Homicidal Ideation: Denies Insight: Impaired Judgement: Impaired Impulse Control: Fair (improved from admission) - Laboratory Result Diagrams: 12/25/17 07:16 12/27/17 07:11 Laboratory Results - last 24 hr 12/27/17 12/27/17 12/28/17 19:29 22:24 05:45 Glucometer 352 268 182 12/28/17 12/28/17 09:54 11:29 Glucometer 250 228 Assessment and Plan (1) Suicidal ideation Current visit: Yes Status: Resolved (2) Mood disorder Problem details: unspecified R/O Bipolar disorder Current visit: Yes Status: Acute (3) Myasthenia gravis Current visit: Yes Status: Acute (4) Diabetes mellitus, type II Current visit: Yes Status: Acute (5) Orthostatic hypotension Current visit: Yes Status: Acute Discharge back to facility tonight; DPOA agreed with plan. Tolerated lorazepam 0.25mg PO this morning without resulting hypotension or oversedation, will provide additional PRN prior to transportation. Hospital Course Summary Disclaimer: The visit summary below is not to be considered part of the above Progress Note. Hospital Course: 12/16/17 Agree with admission to [facility] for psychiatric eval/tx with Dr. Matute. EKG performed following pt's syncopal episode. Poor tracing. Appears NSR with nl rate. Pt declining labs - will try to get later when pt is more cooperative. Nursing staff to check vitals q 15 min x 2 and call me with results. Will encourage pt to take her midodrin as directed Follow I&O's to assess fluid status as pt was previously dehydrated during her acute hospital stay. Fall precautions. Neuro checks to assess for any neuro changes r/t her fall this am. If any mental changes, will check head CT. UA showed + nitrites and UC showing early growth. Pt had cath at previous facility and UA their was neg for nitrites. Will wait to treat until culture is resulted. Hospitalist service will follow pt throughout her stay. Thanks for the consult. 12/17/17 Patient remains very uncooperative and fatalistic regarding her condition. She is not willing for me to change her medications currently- could consider increase in Midodrine if resting BP would tolerate. I D/W RN at length- main goal is to keep patient as safe as we can from falls. May need to use a lift to help when she is getting up. She does appear a bit dehydrated on labs- push oral fluids and add oral fluid/ electrolyte replacement (Gatorade, etc). Her blood sugar has been incredibly variable. Continue PRN insulin. Insulin pump stopped due to threats of suicide by the insulin. May consider consulting Endocrine due to the complex medical condition. Follow labs periodically. Consider adjusting meds to her home timing if that can be determined. D/W RN at length as well as with Dr. Patiño. 12/20/17 Psych: After discussion of risks/benefits with DPOA, agreed to trial of Abilify to start 12/21 if patient will agree. After conversation with daughter, it is not believed patient has capacity to make her own medical decisions. 12/21/17 Psych: Start Abilify 1mg PO today. Risks and benefits discussed with daughter, who gave informed consent. 12/22/17 Psych: Continue current care; monitoring for hypotensive episodes and considering whether to increase Abilify. Patient has been much less irritable since stopping Ritalin and she has been improving night-time sleep. 12/23/17 Psych- Continue current care 12/23 Increasing nausea - trial scopolamine patch. 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 Persistent hyperglycemia; she used to use an insulin pump but this has been taken away d/t threats that she would use it for suicide. Will start NovoLOG 3 units before each meal; continue Levemir 10 units daily. D/W Dr. Patiño - pt is on Mestinon for orthostatic hypotension, not myasthenia gravis Repeat BMP in am of 12/25 - f/u on renal function 12/24/17 Psych note- Continue current care 12/25/17 Psych: Continue current care and will contact facility in [place] as to whether they will accept patient. 12/26/17 Psych: Continue current care and continue attempts at managing BS, encouraging patient participation with diet modification. Facility to assess on . 12/26/17 - hospitalist Start Protonix IV BID and Carafate slurry ACHS for what sounds like esophageal pain. With her recurrent vomiting, she likely has a component of esophagitis. Discussed patient with Dr. Matute. Pt will not be going back on the insulin pump as cognitively she is unable to manage this. Will increase her Levemir to BID and continue to use short-acting before meal insulin and SSI as needed. 12/27/17 Psych: Discharge back to facility tonight; DPOA agreed with plan. Tolerated lorazepam 0.25mg PO this morning without resulting hypotension or oversedation, will provide additional PRN prior to transportation. Medical decisions should be deferred to DPOA.
--- NOTE | 2017-12-28 13:27 | Extended Care Facility Orders ---
Admission Orders Admit to:: [facility] Allergies/Adverse Reactions: Allergies metoclopramide [From Reglan] Allergy (Mild, Verified 12/14/17 22:19) reported that pt gets "the shakes" ciprofloxacin [From Cipro] Allergy (Unknown, Verified 12/14/17 22:16) duloxetine Allergy (Unknown, Verified 12/14/17 22:18) gabapentin Allergy (Unknown, Verified 12/14/17 22:19) hydrocodone Allergy (Unknown, Verified 12/14/17 22:16) levofloxacin [From Levaquin] Allergy (Unknown, Verified 12/14/17 22:17) promethazine Allergy (Unknown, Verified 12/14/17 22:17) venlafaxine [From Effexor] Allergy (Unknown, Verified 12/14/17 22:18) Admitting Diagnosis: depression Admitting Physician: Ashley aMtute MD Attending Physician: Ashley Matute MD Code Status: Full Code Anticiapted Length of Stay: greater than 30 days Rehab Potential: fair Rehab Prognosis: fair Diet: 12/15/17 Lunch Consistent Carbohydrate Diet [DIET] Calorie Level: 2000 May use Facility Protocol or Standing Orders: Yes May have flu vaccine: Yes Evaluations/Treatment: Psychiatric [facility] Certification: I certify that SNF services are required to be given on an Inpatient basis because of the patients need for halfway care on a continuing basis for the condition(s) for which he/she received inpatient hospital services prior to his/her transfer to the SNF. SNF inpatient care is necessary for the following reasons Indication for Fci: Not Applicable - Additional Information In Event of Arrest: Start CPR,call 911,send patient to the ER Resident is Aware of Diagnosis: Yes (has limited insight into cognitive deficits ) Referrals: Medical, Director [Other] (Business Center Representative of the facility will see patient on rounds for Hosp. follow- up. . No Mental Health follow-up scheduled at this time. per Dr. Colette Matute)
--- NOTE | 2017-12-28 13:28 | Neuropsychiatric Disch Summary ---
Discharge Information Date of admission: 12/14/17 20:45 Attending Physician: Ashley Matute MD Primary care physician: Abran Gorman MD Consults: 12/14/17 21:47 Case Management Consult [CONS] Routine Reason For Exam: Optimization of medical comorbidities Physician Consult [CONS] Routine Consulting Provider: Garrett Peters Reason For Exam: Optimization of medical comorbidities Ordering Provider has Notified Spice Room Worker: No Comment: Nursing - please notify - Discharge Diagnosis (1) Suicidal ideation Status: Resolved (2) Mood disorder Status: Acute (3) Myasthenia gravis Status: Acute (4) Diabetes mellitus, type II Status: Acute (5) Orthostatic hypotension Status: Acute - Laboratory Labs: 12/25/17 07:16 12/27/17 07:11 - Microbiology Microbiology 12/15/17 12:51 Urine, Voided (Cc/notcc) Urine Culture - Final Coag negative Staphylococcus Date of Admission: 12/14/17 20:45 History of Present Illness: Patient is a 67-year-old , retired female with myasthenia gravis who was admitted to [facility] on 12/14/17 due to problematic behavior at her care facility, [facility], in [place], [place]. Patient has reportedly been having anger outbursts with verbal aggression towards staff, making false accusations towards staff requiring 2 people to care for her at all times, suspected of causing herself to vomit, threatening to leave the facility, and then recently threatened suicide with plan to use her insulin pump. Her insulin pump was since removed and patient has now been put on sliding scale insulin with consistent carbohydrate diet. On interview, patient is irritable, dismissive and demanding. She gives me very little information about behavior other than "anger" and says she was referred by her doctor, she is unsure why. She directs focus to perceived mistakes made by various members of staff ("The nurses are trying to give me the wrong medicine, at [facility] and here.") She says her mood is "more angry here" about "everything I (the doctor) am doing." When asked what upset her, she then says, "You're not doing anything." I reminded her that she was admitted overnight and I am just now meeting her, and would like to complete information gathering to avoid making premature recommendations for threatment. She is upset that her Ritalin was held as she says it is for her hypotension and " there is no substitute." She is upset that her insulin pump was taken away though she admits she threatened suicide with it. She denies that plan now and when asked why she wouldn't kill self (such as protective factors), she says, " I don't want to." I discussed protective factors such as marilyn or her family and she denied having any. Sh eis upset that the hospital changed her diet to carb consistent and that she is on injectable insulin now. She denies HI and becomes angry when I ask about AVH, denying history of symtpoms consistent with bipolar disorder, psychosis, or PTSD. In regards to sleep, patient states, "I don't sleep. My circadian rhythm is upside down." She states that she typically sleeps during the day and has done so for 20 years. (Was on Ritalin 20mg TID prior to admission that may have interfered with sleep). She denies change in appetite and denies anhedonia. Patient does complain of diminished quality of life secondary to myasthenia gravis because "she can't use her hands, she's shaky on her feet, and she can't stand up." In regards to guilt, patient does admit to feeling guilty due to her 's recent suicide. Patient denies significant anxiety. Past psych hx: Patient denies any hx of suicide attempts or psychiatric hospitalizations. She states she was on Wellbutrin and Cymbalta in the past, and they were helpful for her low BP. She states that Cymbalta gave her nightmares. Nursing note at time of admission: "Family notified that pt arrived to unit but was very angry about how her medical care was being managed by [facility] in [place], [place]. Barbara spoke with the pt for awhile. Pt and family notified that pt's cell phone was not in pt's current belongings. Barbara was ok with this. Barbara and her sister spoke with me for several minutes about pt's personality quarks. Family notified me that pt has had orthostatic blood pressure problems in past that has contributed to pt's falls. Some symptoms included pt displaying agonal breathing accompanied by gurgling noises. Family informed me that pt's in past at home would reverse Trendelenburg pt and cognitive status would be restored in "a few minutes." Family advised that this would be passed along to nursing staff and Dr. Matute would be informed. Family indicated that they felt reassured after discussing expectations of pt care. Family advised that Dr. Matute would do a general evaluation of medical information and then discuss with patient plan of care and goals. Family would be notified of pt's care plan." Hospital Course This is a general summary of the patient's hospital course. For more details refer to the complete medical record. Hospital course: 12/16/17 Agree with admission to [facility] for psychiatric eval/tx with Dr. Matute. EKG performed following pt's syncopal episode. Poor tracing. Appears NSR with nl rate. Pt declining labs - will try to get later when pt is more cooperative. Nursing staff to check vitals q 15 min x 2 and call me with results. Will encourage pt to take her midodrin as directed Follow I&O's to assess fluid status as pt was previously dehydrated during her acute hospital stay. Fall precautions. Neuro checks to assess for any neuro changes r/t her fall this am. If any mental changes, will check head CT. UA showed + nitrites and UC showing early growth. Pt had cath at previous facility and UA their was neg for nitrites. Will wait to treat until culture is resulted. Hospitalist service will follow pt throughout her stay. Thanks for the consult. 12/17/17 Patient remains very uncooperative and fatalistic regarding her condition. She is not willing for me to change her medications currently- could consider increase in Midodrine if resting BP would tolerate. I D/W RN at length- main goal is to keep patient as safe as we can from falls. May need to use a lift to help when she is getting up. She does appear a bit dehydrated on labs- push oral fluids and add oral fluid/ electrolyte replacement (Gatorade, etc). Her blood sugar has been incredibly variable. Continue PRN insulin. Insulin pump stopped due to threats of suicide by the insulin. May consider consulting Endocrine due to the complex medical condition. Follow labs periodically. Consider adjusting meds to her home timing if that can be determined. D/W RN at length as well as with Dr. Patiño. 12/20/17 Psych: After discussion of risks/benefits with DPOA, agreed to trial of Abilify to start 12/21 if patient will agree. After conversation with daughter, it is not believed patient has capacity to make her own medical decisions. 12/21/17 Psych: Start Abilify 1mg PO today. Risks and benefits discussed with daughter, who gave informed consent. 12/22/17 Psych: Continue current care; monitoring for hypotensive episodes and considering whether to increase Abilify. Patient has been much less irritable since stopping Ritalin and she has been improving night-time sleep. 12/23/17 Psych- Continue current care 12/23 Increasing nausea - trial scopolamine patch. 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 Persistent hyperglycemia; she used to use an insulin pump but this has been taken away d/t threats that she would use it for suicide. Will start NovoLOG 3 units before each meal; continue Levemir 10 units daily. D/W Dr. Patiño - pt is on Mestinon for orthostatic hypotension, not myasthenia gravis Repeat BMP in am of 12/25 - f/u on renal function 12/24/17 Psych note- Continue current care 12/25/17 Psych: Continue current care and will contact facility in [place] as to whether they will accept patient. 12/26/17 Psych: Continue current care and continue attempts at managing BS, encouraging patient participation with diet modification. Facility to assess on . 12/26/17 - hospitalist Start Protonix IV BID and Carafate slurry ACHS for what sounds like esophageal pain. With her recurrent vomiting, she likely has a component of esophagitis. Discussed patient with Dr. Matute. Pt will not be going back on the insulin pump as cognitively she is unable to manage this. Will increase her Levemir to BID and continue to use short-acting before meal insulin and SSI as needed. Discharge Plan - Med Rec/Dispo Referrals/Follow Up: Medical, Director [Other] (Marketing/Sales Person of the facility will see patient on rounds for Hosp. follow- up. . No Mental Health follow-up scheduled at this time. per Dr. Colette Matute) Additional Instructions: Discharge Diagnosis: Reasons for Admission: Pt is verbally aggressive, making herself vomit, depressed, resistive to cares, and threatened suicide IN CASE OF PSYCHIATRIC EMERGENCY, CONTACT [facility] AT [phone] ( available 24 hrs daily). Prescriptions: New ARIPiprazole [Abilify 2 mg] 1 mg PO DAILY 30 Days #15 tab Discontinued Nortriptyline HCl [Pamelor] 50 mg PO QHSPRN Insulin Pump Quetiapine [Seroquel] 1 tab PO HS Ritalin 20 mg PO TID No Action Potassium Bicarbonate/Cit AC [Effer-K 20 Meq Tablet Eff] 20 meq PO TID Hydralazine HCl 10 mg IV Q4HPRN Pyridostigmine 60 mg PO TID Clopidogrel [Plavix] 1 tab PO DAILY Protonix Tab 20 mg PO DAILY Midodrine 5 mg PO TID Lipitor 10 mg PO HS PEG 3350 17gm PACKET [Miralax] 17 gm PO DAILY Phenazopyridine HCl 190 tab PO DAILY Theragran 1 tab PO DAILY Lactobacillus 1 tab PO DAILY Insulin Detemir [Levemir] 10 unit SQ DAILY Florinef 0.1 mg PO DAILY Novolog 6 units SQ O Zofran Po 4 unit PO TID PRN PRN Reason: Nausea - Disposition 04 To [facility] Home/Facility
[2017-12-28] MEDS: PYRIDOSTIGMINE 60 MG TABLET PO SCH (14:01)
[2017-12-28] MEDS: MIDODRINE 5 MG TABLET PO SCH (14:02)
[2017-12-28 15:52] VITALS: BP 118/63; PULSE 57; TEMP 98; O2SAT 96
== END 2017-12-28 15:10 | DRG 885 ==
LOC: GEN 20:45
PROVIDERS: ADMIT Psychiatry & Neurology Psychiatry; ATTEND Psychiatry & Neurology Psychiatry